=== PATIENT | male | born 1990 | race Caucasian/White ===

== ENCOUNTER 2016-11-27 02:02 | Inpatient (IN) | payer MEDICAID, OTHER ==
--- NOTE | 2016-11-27 03:13 | ED ---
General Adult HPI - General Source: patient, RN notes reviewed Mode of arrival: ambulatory Limitations: no limitations <Flakita Barker - Last Filed: 11/27/16 03:40> <Yoel Loomis - Last Filed: 11/27/16 11:03> - General Chief complaint: Psychiatric Symptoms Stated complaint: Mental Health Time Seen by Provider: 11/27/16 02:40 - History of Present Illness Initial comments: 26-year-old male presents to the emergency Department chief complaint of suicidal ideation. Patient states he had a plan to slit his throat. Patient states he is a drug addict as well as an alcoholic. Patient has been in rehab multiple times. He states that he just is over lifting. He has no rales has no help he didn't stay sober he doesn't stay clean he just does not know else to do.Patient denies any recent fever, chills, shortness of breath, chest pain, back pain, abdominal pain, nausea vomiting, numbness or tingling, dysuria or hematuria, constipation or diarrhea, headaches or visual changes, or any other current symptoms. (Flakita Barker) - Related Data Home Medications Medication Instructions Recorded Confirmed Disulfiram [Antabuse] 250 mg PO DAILY 11/27/16 11/27/16 Omeprazole 20 mg PO BID 11/27/16 11/27/16 clonazePAM [KlonoPIN] 0.25 - 0.5 mg PO DAILY 11/27/16 11/27/16 Allergies Allergy/AdvReac Type Severity Reaction Status Date / Time bee venom protein (honey bee) Allergy Unknown Verified 11/27/16 10:48 Review of Systems ROS Other: All systems not noted in ROS Statement are negative. <Flakita Barker - Last Filed: 11/27/16 03:40> ROS Other: All systems not noted in ROS Statement are negative. <Yoel Loomis - Last Filed: 11/27/16 11:03> ROS Statement: Those systems with pertinent positive or pertinent negative responses have been documented in the HPI. Past Medical History Past Medical History: No Reported History History of Any Multi-Drug Resistant Organisms: None Reported Past Surgical History: No Surgical Hx Reported Past Anesthesia/Blood Transfusion Reactions: No Reported Reaction Past Psychological History: Anxiety, Depression Smoking Status: Current every day smoker Past Alcohol Use History: Abuse Past Drug Use History: Opiates - Past Family History Father Additional Family Medical History / Comment(s): Father shot himself when he was around 41 years of age. Mother Additional Family Medical History / Comment(s): Mother was shot and killed by patient's father when she was approximately 40 years of age. Patient has one sister that is healthy. He does not have any children. <Flakita Barker - Last Filed: 11/27/16 03:40> General Exam Limitations: no limitations General appearance: alert, in no apparent distress Head exam: Present: atraumatic, normocephalic, normal inspection ENT exam: Present: normal exam, mucous membranes moist Neck exam: Present: normal inspection. Absent: tenderness, meningismus, lymphadenopathy Respiratory exam: Present: normal lung sounds bilaterally. Absent: respiratory distress, wheezes, rales, rhonchi, stridor Cardiovascular Exam: Present: regular rate, normal rhythm, normal heart sounds. Absent: systolic murmur, diastolic murmur, rubs, gallop, clicks Neurological exam: Present: alert, oriented X3 Psychiatric exam: Present: suicidal ideation. Absent: homicidal ideation Skin exam: Present: warm, dry, intact, normal color. Absent: rash <Flakita Barker - Last Filed: 11/27/16 03:40> Course <Flakita Barker - Last Filed: 11/27/16 03:40> <Yoel Loomis - Last Filed: 11/27/16 11:03> Vital Signs 11/27/16 11/27/16 02:06 06:16 Temperature 98.2 F Pulse Rate 87 98 Respiratory 20 16 Rate Blood Pressure 139/76 138/79 O2 Sat by Pulse 98 98 Oximetry - Reevaluation(s) Reevaluation #1: 11/27/16 03:40 this case will be signed out to DR. Koehler. (Flakita Barker) Medical Decision Making <Flakita Barker - Last Filed: 11/27/16 03:40> <Yoel Loomis - Last Filed: 11/27/16 11:03> - Medical Decision Making 26-year-old male presents emergency department with a chief complaint of suicidal ideation. Patient has history of alcohol abuse as well as drug abuse. (Flakita Barker) - Lab Data Lab Results 11/27/16 Range/Units 03:25 Urine Opiates Screen Not Detected (NotDetected) Ur Oxycodone Screen Not Detected (NotDetected) Urine Methadone Screen Not Detected (NotDetected) Ur Propoxyphene Screen Not Detected (NotDetected) Ur Barbiturates Screen Not Detected (NotDetected) U Tricyclic Antidepress Not Detected (NotDetected) Ur Phencyclidine Scrn Not Detected (NotDetected) Ur Amphetamines Screen Not Detected (NotDetected) U Methamphetamines Scrn Not Detected (NotDetected) U Benzodiazepines Scrn Not Detected (NotDetected) Urine Cocaine Screen Not Detected (NotDetected) U Marijuana (THC) Screen Not Detected (NotDetected) Disposition <Flakita Barker - Last Filed: 11/27/16 03:40> Time of Disposition: 11:03 <Yoel Loomis - Last Filed: 11/27/16 11:03> Clinical Impression: Suicidal ideation Disposition: ADMITTED IP TO THIS HOSP
[2016-11-27] MEDS ORDERED: LORazepam 1 MG TAB PO PRN (12:02)
[2016-11-27] MEDS ORDERED: MAGNESIUM HYDROXIDE 2,400 MG/10 ML CUP PO PRN (12:02)
[2016-11-27] MEDS ORDERED: MAG HYDROX/AL HYDROX/SIMETH 30 ML CUP PO PRN (12:02)
[2016-11-27] MEDS ORDERED: ZIPRASIDONE 20 MG VIAL IM PRN (12:02)
[2016-11-27] MEDS: PANTOPRAZOLE 40 MG TABLET PO SCH (16:33)
--- NOTE | 2016-11-27 17:48 | P.CONS ---
History of Present Illness - Reason for Consult Consult date: 11/27/16 History physical in a patient admitted to the psych floor - History of Present Illness This is a 26-year-old gentleman with history of alcohol overuse comes in to the hospital with complains of suicidal ideation. Patient was seeking help apparently is tired of drinking excessive amounts of alcohol Patient states that his last drink was over 24 hours ago was seen in the emergency room and was admitted to the hospital. Patient denies having any suicidal or homicidal ideation at this time His main complaints are jitteriness headaches and symptoms of mild hallucinations. No fevers no chest pain no difficulty breathing urinary urgency or frequency is reported at this time. Review of Systems All systems: negative (noted in hpi) Past Medical History Past Medical History: No Reported History History of Any Multi-Drug Resistant Organisms: None Reported Past Surgical History: No Surgical Hx Reported Past Anesthesia/Blood Transfusion Reactions: No Reported Reaction Past Psychological History: Anxiety, Depression Smoking Status: Current every day smoker Past Alcohol Use History: Abuse Past Drug Use History: Opiates - Past Family History Father Additional Family Medical History / Comment(s): Father shot himself when he was around 41 years of age. Mother Additional Family Medical History / Comment(s): Mother was shot and killed by patient's father when she was approximately 40 years of age. Patient has one sister that is healthy. He does not have any children. Medications and Allergies Home Medications Medication Instructions Recorded Confirmed Type Disulfiram [Antabuse] 250 mg PO DAILY 11/27/16 11/27/16 History Omeprazole 20 mg PO BID 11/27/16 11/27/16 History clonazePAM [KlonoPIN] 0.25 - 0.5 mg PO DAILY 11/27/16 11/27/16 History Allergies Allergy/AdvReac Type Severity Reaction Status Date / Time bee venom protein (honey bee) Allergy Unknown Verified 11/27/16 10:48 Physical Exam Vitals: Vital Signs Temp Pulse Pulse Resp BP BP Pulse Ox 11/27/16 13:12 97.7 F 77 16 134/77 11/27/16 06:16 98 16 138/79 98 11/27/16 02:06 98.2 F 87 20 139/76 98 Intake and Output 11/27/16 11/27/16 11/27/16 06:59 14:59 22:59 Other: Weight 85.049 kg 85.417 kg Patient Weight 11/28/16 06:59 Weight 85.417 kg JemPhysical exam Gen. appearance oriented 3 in no distress Neck is supple no JVD Lungs good air entry clear to auscultation no rhonchi or wheezing Heart S1-S2 heard regular rate and rhythm no murmurs appreciated Abdomen is soft nontender no organomegaly bowel sounds are intact Neurologically cranial nerves II-12 grossly intact no focal motor or sensory deficits noted Skin no abnormalities appreciated Assessment and Plan Plan: Major depression with suicidal ideation per of #2 acute alcohol intoxication with some symptoms of withdrawal Plan Ativan per protocol Thank you for the consultation no neurological deficits noted physical exam is normal No further recommendations from my perspective Please call with any questions or concerns if patient's symptoms get severely worse please call his back for possibility of an inpatient admission
[2016-11-27] MEDS: ACETAMINOPHEN TAB 325 MG TAB PO PRN (17:49)
--- NOTE | 2016-11-27 20:20 | HP ---
DATE OF ADMISSION 11/27/16 IDENTIFYING DATA: This is a 26-year-old single male patient. HISTORY OF PRESENT ILLNESS: Mr. Ortiz presents to the inpatient psychiatry unit at [facility] with recent depression and anxiety and concern of thoughts about suicide. The patient states he has been drinking a lot. He changed to beer and has been drinking 20 beers per day for the last couple of months. He says it has been interfering with his life and functioning. He states that he has had job losses. His family does not want to talk to him. He does admit to history of panic attacks, PTSD and being a worrier ever since he was a kid. He has felt depressed even when he is not drinking alcohol. He admits to thoughts of suicide when he came here but states that suicide is against is beliefs. He had feelings that he was done with everything but did not have any specific plan for suicide. He says he felt like he was almost bipolar recently with some ups and downs with his mood but feels like that also has been related to the alcohol. He admits to decreased sleep lately which has been a problem. Regarding PTSD, he relates history of his father killing his mom and then his father killing himself. He states that he tends to startle easily. He did not witness this incident but states that he has nightmares about his mom and dad and what happened. PSYCHIATRIC HISTORY: He has history of being on Klonopin. His primary care physician prescribes 10 at a time of the 0.5 mg strength and says that it is not enough. He says he never abused the Klonopin. He was discharged on Klonopin from his last admission here. He takes Klonopin only as he is supposed to even when he has been sober, he has taken the Klonopin for anxiety. He states that he was diagnosed with ADHD as a child. He has taken Xanax before in the past. He was admitted here in the past for depression, once. He denies any history of suicide attempts. He has been on Trazodone which gave him jumpy legs and ( ) which gave him restless legs in the past for sleep. PSYCHIATRIC FAMILY HISTORY: None specific known other than the patient does relate incident where his father killed his mom and then killed himself. He does state that his dad had drinking and drunks involved. PAST MEDICAL HISTORY: History of hemorrhoids, gastroesophageal reflux disease. Current medications: 1. Tylenol prn. 2. Maalox prn. 3. Ativan prn. 4. Milk of Magnesia prn. 5. Protonix. 6. Geodon prn. DRUG AND ALCOHOL HISTORY: The patient states that between the ages of 20 and 26 , he has been pretty much a daily drinker. He has been to rehab five times at [facility]. He has had some periods of sobriety. Longest has been six months. He wants to get sobriety back. He does not use any other substances. In the past he experimented with things such as marijuana but has been a long time without that. SOCIAL HISTORY: He relays an incident where his dad killed his mom and then killed himself. He states that his dad had drinking and drugs involved. He was [age] years old. He did not witness that incident. He was close with both of them and it was very traumatic for him. He lived with his uncle thereafter. His uncle did not have any children. His sister was 4 years older, stayed with them for a year and then sent to college. His sister currently lives in [place] and he has a one and a half year old niece. 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 He stays pretty busy. He has no current relationship. He has never been . He does not have any children. He has no history of being abused. MENTAL STATUS EXAM: He is alert, cooperative. Overall pleasant, not showing any agitation. Mood is described at terrible. His affect is restricted. He denies any thoughts of harm to self or others. He reports he feels safe here on the unit. He denies any hallucinations. He says yesterday he saw the carpet moving he thinks secondary to withdrawal and sleep deprivation. He admits to some withdrawal type symptoms. Cognitively he appears to be grossly intact. I do not see any significant disorientation or memory disturbances. Insight adequate. Judgment shows evidence of recent impairment. IMPRESSION: 1. Major depressive disorder, recurrent, severe. Rule out any component of bipolar disorder. 2. Generalized anxiety disorder, rule out panic disorder, rule out PTSD component. 3. Alcohol use disorder. PLAN/RECOMMENDATIONS: The patient will be admitted to the inpatient psychiatric unit at [facility] on a voluntary basis. He will be placed on SP 15 minute precautions. He will participate in group and activity therapies. Baseline laboratory workup will be done on the patient and medical consultation will be ordered. I will initiate Zoloft 50 mg daily to help with depression and anxiety components. We will also initiate low dose Seroquel at bedtime to help augment regarding mood and could benefit in terms of if there is any mood instability and may also help any severe anxiety type component as well as with sleep. He is on Ativan prn to prevent any alcohol withdrawal and also as needed for any agitation or severe anxiety. We will look into support symptoms. We will continue to cover this patient for Dr. Barnes through the weekend. We will monitor for any psychotropic medication side effects and monitor his response. Continue to monitor regarding any suicidal ideations. VASYLD
[2016-11-27] MEDS: LORazepam 1 MG TAB PO PRN (20:49)
[2016-11-27] MEDS: QUEtiapine 50 MG TAB PO SCH (20:50)
[2016-11-28] MEDS ORDERED: SERTRALINE 50 MG TAB PO SCH (09:00)
[2016-11-28] MEDS: PANTOPRAZOLE 40 MG TABLET PO SCH ×2 (09:02→17:21)
[2016-11-28] MEDS: LORazepam 1 MG TAB PO PRN ×3 (09:04→18:32)
[2016-11-28 09:43] LABS: Basophils # (A) 0.1 k/uL (0-0.2); Basophils % (A) 1 %; CH 31.2; CHCM 32.2; Eosinophils # (A) 0.3 k/uL (0-0.7); Eosinophils % (A) 5 %; HCT 47.6 % (39.0-53.0); HDW 1.93; HGB 15.5 gm/dL (13.0-17.5); Luc # (Auto) 0.23; Luc % (Auto) 3; Lymphocytes # (A) 0.9 k/uL (1.0-4.8); Lymphocytes % (A) 14 %; MCH 31.8 pg (25.0-35.0); MCHC 32.7 g/dL (31.0-37.0); MCV 97.2 fL (80.0-100.0); Monocytes # (A) 0.7 k/uL (0-1.0); Monocytes % (A) 10 %; Neutrophils # (A) 4.6 k/uL (1.3-7.7); Neutrophils % (A) 67 %; RDW 13.9 % (11.5-15.5); WBC 6.9 k/uL (3.8-10.6); WBC (Perox) 6.63
[2016-11-28 09:59] LABS: Alkaline Phosphatase 175 U/L (38-126); Anion Gap 10 mmol/L; Bilirubin, Delta 1.7 mg/dL (0.0-0.2); Blood Urea Nitrogen 10 mg/dL (9-20); Calcium 9.5 mg/dL (8.4-10.2); Carbon Dioxide 28 mmol/L (22-30); Chloride 105 mmol/L (98-107); Glucose 81 mg/dL (74-99); Non-African American GFR(MDRD) >60 (>60 ml/min/1.73 sqM); Potassium 4.5 mmol/L (3.5-5.1); Sodium 143 mmol/L (137-145); Total Bilirubin 4.4 mg/dL (0.2-1.3); Total Protein 7.3 g/dL (6.3-8.2)
[2016-11-28 10:29] LABS: ALT 1672 U/L (21-72); AST 1026 U/L (17-59)
[2016-11-28] MEDS: MULTIVITAMINS, THERA 1 EACH TAB PO SCH (11:57)
[2016-11-28] MEDS: ACETAMINOPHEN TAB 325 MG TAB PO PRN (15:41)
[2016-11-28] MEDS: BENZOCAINE 20% HEMORRHOIDAL OINT 28GM RECTAL PRN (17:21)
--- NOTE | 2016-11-28 17:24 | P.PN ---
Progress Note - Text Interval history: Patient is seen in cross coverage today for Dr. Barnes. He reports that he feels much better today. He slept through the night. He seems to be tolerating the Seroquel well. He does not voice any adverse side effects with the Zoloft. Labs from today revealed significantly elevated ALT and AST. He does describe risk factor for hepatitis C. He does describe that he feels like the Ativan isn't working. Mental status exam: He is alert and cooperative. His speech is fluent, not rapid or pressured. Thought processes organized. He denies any thoughts of harm to self or others. He denies any hallucinations. No evidence of active psychosis. He does not display any agitation. Plan: We'll check an ALT and AST in the a.m. We will also check an acute hepatitis panel. Will ask medical to follow-up on rounds regarding elevated LFTs. We will drop back on the dosage of Zoloft just 25 mg daily with elevated ALT and AST. We'll monitor for any medication side effects we'll maintain Seroquel as current. We'll continue to monitor his response to treatment. Dr. Barnes to initiate care this patient starting tomorrow.
[2016-11-28] MEDS: QUEtiapine 50 MG TAB PO SCH (20:46)
[2016-11-29 08:42] LABS: AST 1032 U/L (17-59)
[2016-11-29] MEDS ORDERED: SERTRALINE 25 MG TAB PO SCH (09:00)
[2016-11-29 09:01] LABS: Hepatitis B Surface Ag Index 0.06
[2016-11-29] MEDS: PANTOPRAZOLE 40 MG TABLET PO SCH ×2 (09:03→17:08)
[2016-11-29] MEDS: LORazepam 1 MG TAB PO PRN ×3 (09:04→22:11)
[2016-11-29 09:06] LABS: Hepatitis B Core IgM Index 0.03
[2016-11-29 09:14] LABS: ALT 1754 U/L (21-72)
[2016-11-29 09:18] LABS: Hepatitis C Virus IgG Ab Reactive (Negative)
--- NOTE | 2016-11-29 11:01 | P.PN ---
Progress Note - Text Interval history: The patient is found in group he follows me to an interview room. The patient was admitted over the weekend for suicidal ideation. He described having anxiety symptoms and these occur in the context of a known alcohol use disorder. The patient's liver function enzymes have been markedly elevated today's numbers are higher than yesterday. Hepatitis panel was drawn he was hepatitis C reactive. He states that he recently had unprotected sex with a female known to have hepatitis C. The patient was started on Zoloft for depressive and anxiety symptoms Seroquel at bedtime. He has been attending groups. He reports that his suicidal thoughts have resolved. 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 Mental status exam: The patient is alert he seated calmly eye contact is appropriate speech is fluent spontaneous nonpressured. He reports his mood is better. Affect is congruent to reported mood. He reports that suicidal thoughts that he presented with have resolved. He is feeling more hopeful. He is disappointed with the news of the hepatitis C being reactive but states it is something he can manage. Insight and judgment improving. He is oriented to person place and date. He endorses no auditory or visual hallucinations he endorses no specific delusions. There is no evidence of psychosis. He does not demonstrate any tangential thinking loose associations or flight of ideas. Plan: The patient will be continued on the Zoloft we will increase this to 50 mg daily Seroquel maintained at 50 mg at bedtime. Internal medicine is asked to review the case again regarding the elevation in liver function and the reactive hepatitis C results. He is encouraged to continue participating in groups. We will monitor him for safety. From a psychiatric perspective he may be appropriate for discharge in the next 1-2 days vital signs reviewed.
[2016-11-29] MEDS: MULTIVITAMINS, THERA 1 EACH TAB PO SCH (12:00)
[2016-11-29] MEDS: BENZOCAINE 20% HEMORRHOIDAL OINT 28GM RECTAL PRN (12:01)
[2016-11-29] MEDS: ACETAMINOPHEN TAB 325 MG TAB PO PRN (17:08)
[2016-11-29] MEDS: QUEtiapine 50 MG TAB PO SCH (21:11)
[2016-11-30 06:45] VITALS: BP 120/65; PULSE 63; RESP 12; TEMP 97.4
[2016-11-30] MEDS: PANTOPRAZOLE 40 MG TABLET PO SCH (08:38)
[2016-11-30] MEDS: MULTIVITAMINS, THERA 1 EACH TAB PO SCH (08:38)
[2016-11-30] MEDS: LORazepam 1 MG TAB PO PRN (08:39)
[2016-11-30] MEDS ORDERED: SERTRALINE 50 MG TAB PO SCH (09:00)
--- NOTE | 2016-11-30 09:27 | P.DS ---
Providers Date of admission: 11/27/16 11:01 Expected date of discharge: 11/30/16 Attending physician: Elieser Barnes Consults: 11/27/16 12:02 Consult Physician Routine Consulting Provider: Timothy Stanley Consult Reason/Comments: H & P and medical care Do you want consulting provider notified?: Yes 11/29/16 13:34 Consult Physician Routine Consulting Provider: Timothy Stanley Consult Reason/Comments: New Dx Hep C Do you want consulting provider notified?: Yes Primary care physician: Katherine Manzanares Charbal - Discharge Diagnosis(es) (1) Major depressive disorder, recurrent Current Visit: Yes Status: Acute Priority: High (2) Anxiety Current Visit: Yes Status: Acute Priority: High (3) Alcohol use disorder Current Visit: Yes Status: Acute Priority: High Hospital Course: Brief summary of admission note: The patient is a 26-year-old single male who was admitted to the mental health unit with acute symptoms of depression and anxiety and thoughts of suicide. This has been happening in the context of him overusing alcohol. He described feeling isolated having no reliable source of income and experiencing with anxiety in the form of panic attacks. There is a history of PTSD as the patient's father killed his mother and then killed himself when the patient was 11 years old. For full details please refer to Dr. Dodson is psychiatric evaluation dated 11/27/2016. Summary of hospital course: The patient was admitted to the mental health unit voluntarily. He was initially evaluated by Dr. Dodson. The psychiatric evaluation and subsequent progress notes were reviewed. I assumed care of the patient beginning yesterday. The patient states that he is doing much better his mood is improved he is not feeling suicidal. He feels detoxing from alcohol was a significant part of his mood improving. He had been started on Zoloft and Seroquel we discussed those medications they're intended purposes and possible side effects. The patient was seen by internal medicine. The patient's LFTs have been significantly elevated and a hepatitis panel was drawn which showed hepatitis C was reactive. We are awaiting further input from internal medicine. The patient has been attending groups he has demonstrated no agitated behavior. He feels that this most recent mood crisis has resolved. He does not wish to participate in inpatient chemical dependency treatment but states he will go to an AA meeting a day. Spontaneously he reports plans of following up with a primary care physician regarding his hepatitis status. He is willing to follow up with outpatient mental health services for his mood and anxiety symptoms as well as substance use. Mental status exam: The patient is a male appearing his stated age he is dressed in hospital attire. Eye contact is appropriate speech is fluent spontaneous nonpressured. He reports his mood is better. He reports that he does not feel hopeless he is endorsing no acute suicidal or homicidal ideation intent or plan. He is endorsing no auditory or visual hallucinations he is endorsing no specific delusions. Thought process is linear he demonstrates no tangential thinking loose associations or flight of ideas. He does not present hypomanic or manic. Affect appears euthymic he is able to demonstrate an appropriate range of affect including smiling. He demonstrates no abnormal involuntary movements. He demonstrates no verbal or physical aggressiveness. He remains cognitively grossly intact and he is oriented to person place and date. Impressions 1. Major depressive disorder recurrent severe without psychosis, anxiety unspecified rule out panic disorder, history of PTSD, alcohol use disorder 2. Elevated liver function enzymes, recent diagnosis of hepatitis C 3. Limited support financial constraint Plan: The patient will be discharged mental health unit today to return to his own residence where he rents a room. Social work will arrange outpatient mental health follow-up where they can address his mood anxiety and substance use issues. The patient does not wish to attend inpatient chemical dependency treatment. He will continue on Zoloft 50 mg daily which will need to be titrated further and Seroquel 50 mg at bedtime. There is no imminent safety risk he is appropriate for transition outpatient care. We will await recommendations from internal medicine prior to discharging him from the mental health unit area and the patient will need to follow-up with his primary care physician soon after discharge. We discussed the importance of him abstaining from any use of alcohol marijuana or any other illicit drug. He is instructed to return to the hospital with any acute safety concerns. Patient Condition at Discharge: Stable Plan - Discharge Summary New Discharge Prescriptions: New Multivitamins, Thera [Multivitamin (formulary)] 1 each PO DAILY@1200 tab QUEtiapine [SEROquel] 50 mg PO HS #30 tab Sertraline [Zoloft] 50 mg PO DAILY #30 tab Continue Omeprazole 20 mg PO BID Discontinued clonazePAM [KlonoPIN] 0.25 - 0.5 mg PO DAILY Disulfiram [Antabuse] 250 mg PO DAILY Discharge Medication List Omeprazole 20 mg PO BID 11/27/16 [History] Multivitamins, Thera [Multivitamin (formulary)] 1 each PO DAILY@1200 tab [Rx] QUEtiapine [SEROquel] 50 mg PO HS #30 tab 11/30/16 [Rx] Sertraline [Zoloft] 50 mg PO DAILY #30 tab 11/30/16 [Rx] Follow up Appointment(s)/Referral(s): Ayesha Murphy MD [Primary Care Provider] - 1-2 days
--- NOTE | 2016-11-30 12:02 | P.PN ---
Subjective Patient can follow up with GI. Transaminitis is likely secondary to alcoholic hepatitis There is not necessarily an acute phase of hepatitis C patient can follow up with GI for potential treatment with the newer medications. Objective - Vital Signs Vital signs: Vital Signs Temp 97.4 F L 11/30/16 06:44 Pulse 63 11/30/16 06:44 Resp 12 11/30/16 06:44 BP 120/65 11/30/16 06:44 Pulse Ox 98 11/27/16 06:16 - Labs CBC & Chem 7: 11/28/16 09:19 11/28/16 09:19
== END 2016-11-30 11:05 | disposition home or self-care (01) | DRG 885 ==
LOC: EC 02:02 → 3MHU 11:01
PROVIDERS: ADMIT Psychiatry & Neurology Psychiatry; ATTEND Psychiatry & Neurology Psychiatry
DX: F33.2 Major depressive disorder, recurrent severe without psychotic features (principal); R45.851 Suicidal ideations; F19.20 Other psychoactive substance dependence, uncomplicated; F10.239 Alcohol dependence with withdrawal, unspecified; K70.10 Alcoholic hepatitis without ascites; B19.20 Unspecified viral hepatitis C without hepatic coma; F17.200 Nicotine dependence, unspecified, uncomplicated; F41.0 Panic disorder [episodic paroxysmal anxiety]; F41.1 Generalized anxiety disorder; F43.10 Post-traumatic stress disorder, unspecified; F90.9 Attention-deficit hyperactivity disorder, unspecified type; K21.9 Gastro-esophageal reflux disease without esophagitis; K64.9 Unspecified hemorrhoids; F10.229 Alcohol dependence with intoxication, unspecified; Z79.899 Other long term (current) drug therapy
CPT/HCPCS: 80053; 80074; 80306; 82075; 82248; 84443; 84450; 84460; 85025; 99284

== ENCOUNTER 2016-12-17 20:52 | Emergency (ER) | payer OTHER ==
[2016-12-17 21:02] VITALS: BP 135/83; PULSE 88; RESP 20; TEMP 98
--- NOTE | 2016-12-17 21:28 | ED ---
Wound/Laceration HPI - General Chief Complaint: Wound/Laceration Stated Complaint: laceration left arm Time Seen by Provider: 12/17/16 21:02 Source: patient, RN notes reviewed, old records reviewed Mode of arrival: ambulatory Limitations: no limitations - History of Present Illness Initial Comments: 26 year old male with left upper arm laceration, apparently patient cut it accidentally on a knife. Patient reports he was intoxicated, and could not come to ER last night. Patient states that it has continued to bleed. Reports that his tetanus is up to date, denies any fever, chills, decreased range of motion of arm, or peripheral paresthesias. - Related Data Home Medications Medication Instructions Recorded Confirmed Omeprazole 20 mg PO BID 11/27/16 11/27/16 Previous Rx's Medication Instructions Recorded Multivitamins, Thera [Multivitamin 1 each PO DAILY@1200 tab 11/30/16 (formulary)] QUEtiapine [SEROquel] 50 mg PO HS #30 tab 11/30/16 Sertraline [Zoloft] 50 mg PO DAILY #30 tab 11/30/16 Allergies Allergy/AdvReac Type Severity Reaction Status Date / Time bee venom protein (honey bee) Allergy Unknown Verified 12/17/16 21:02 Review of Systems ROS Statement: Those systems with pertinent positive or pertinent negative responses have been documented in the HPI. ROS Other: All systems not noted in ROS Statement are negative. Past Medical History Past Medical History: No Reported History History of Any Multi-Drug Resistant Organisms: None Reported Past Surgical History: No Surgical Hx Reported Past Anesthesia/Blood Transfusion Reactions: No Reported Reaction Past Psychological History: Anxiety, Depression Smoking Status: Current every day smoker Past Alcohol Use History: Abuse, Daily Past Drug Use History: Marijuana, Opiates - Past Family History Father Additional Family Medical History / Comment(s): Father shot himself when he was around 41 years of age. Mother Additional Family Medical History / Comment(s): Mother was shot and killed by patient's father when she was approximately 40 years of age. Patient has one sister that is healthy. He does not have any children. General Exam - General Exam Comments Initial Comments: Well appearing 26 year old male, no distress. Limitations: no limitations General appearance: alert, in no apparent distress Head exam: Present: atraumatic, normocephalic, normal inspection Eye exam: Present: normal appearance, PERRL, EOMI. Absent: scleral icterus, conjunctival injection, periorbital swelling ENT exam: Present: normal exam, mucous membranes moist Neck exam: Present: normal inspection. Absent: tenderness, meningismus, lymphadenopathy Respiratory exam: Present: normal lung sounds bilaterally. Absent: respiratory distress, wheezes, rales, rhonchi, stridor Cardiovascular Exam: Present: regular rate GI/Abdominal exam: Present: soft, normal bowel sounds. Absent: distended, tenderness, guarding, rebound, rigid Extremities exam: Present: normal inspection, full ROM, normal capillary refill , other (5cm laceration over left upper arm, wound continues to bleed and is deep. ). Absent: tenderness, pedal edema, joint swelling, calf tenderness Back exam: Present: normal inspection Neurological exam: Present: alert, oriented X3, CN II-XII intact Course Vital Signs 12/17/16 21:00 Temperature 98.0 F Pulse Rate 88 Respiratory 20 Rate Blood Pressure 135/83 O2 Sat by Pulse 99 Oximetry Procedures - Laceration Laceration #1 Indication: laceration Site: upper extremity (left arm) Size (cm): 5 Description: linear Depth: simple, single layer Anesthetic Used: lidocaine 1% Anesthesia Technique: local infiltration Amount (mls): 10 Pre-repair: wound explored, irrigated extensively Type of Sutures: nylon Size of Sutures: 5-0 Number of Sutures: 7 Technique: simple, interrupted Patient Tolerated Procedure: well, no complications Medical Decision Making - Medical Decision Making 26 year old male with left upper arm laceration, apparently patient cut it accidentally on a knife. Patient reports he was intoxicated, and could not come to ER last night. Patient states that it has continued to bleed. Laceration measuries 5cm, and was throughly irrigated. Patient wound well approximated with 7 sutures. Discussed return for removal in 10 days. Patient has full rnage of motion of arm, elbow, and is neurovascularly intact. Discussed monitor for infection, return parameters discused. Disposition Clinical Impression: Laceration of left upper arm Disposition: HOME SELF-CARE Condition: Good Instructions: Laceration (ED) Additional Instructions: Please return to the emergency room in 8-10 days to have sutures removed. Please leave wound covered for the first 24-48 hours and then leave open to air after that time. Please use clean soap and water to clean the suture area to prevent scabbing over the top of your sutures. Please watch for any signs of infection which may include but not limited to increased pain, swelling, redness , fever or chills. Please return to the emergency room if any signs of infection do occur. Please return to the emergency room for any other concerns or complications. Referrals: Ayesha Murphy MD [Primary Care Provider] - 1-2 days Time of Disposition: 21:28
--- NOTE | 2016-12-20 08:12 | CDI ---
Dear Saira Mccann PA-C: Please do addendum History of present illness, Physical examination, and procedure of the laceration. Thank you, Carlos Finley, Incident Response Analyst. If you have any questions, please contact [facility] at [phone]. [facility]
== END 2016-12-17 21:34 | disposition home or self-care (01) ==
LOC: EC 20:52
DX: S41.112A Laceration without foreign body of left upper arm, initial encounter (principal); F17.200 Nicotine dependence, unspecified, uncomplicated; Z79.899 Other long term (current) drug therapy; Z91.030 Bee allergy status; W26.0XXA Contact with knife, initial encounter
CPT/HCPCS: 12002; 99283

== ENCOUNTER 2017-01-26 15:07 | Emergency (ER) | payer OTHER ==
[2017-01-26 15:19] VITALS: RESP 16
--- NOTE | 2017-01-26 16:26 | ED ---
General Adult HPI - General Chief complaint: Recheck/Abnormal Lab/Rx Stated complaint: [facility]. Rib Pain follow up Time Seen by Provider: 01/26/17 15:48 Source: patient, RN notes reviewed Mode of arrival: ambulatory Limitations: no limitations - History of Present Illness Initial comments: This is a 26-year-old male who presents to the emergency department with request for pain management. Patient presented here 2 days ago and was diagnosed with a 12th rib fracture. He was discharged home with ibuprofen. 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 Patient has taken his ibuprofen but would like a stronger pain medication. Denies fever, chills, chest pain, abdominal pain, nausea or vomiting, constipation or diarrhea, dysuria or hematuria, numbness or tingling, headache or vision changes. - Related Data Home Medications Medication Instructions Recorded Confirmed Omeprazole 20 mg PO BID 11/27/16 01/25/17 Previous Rx's Medication Instructions Recorded Multivitamins, Thera [Multivitamin 1 each PO DAILY@1200 tab 11/30/16 (formulary)] QUEtiapine [SEROquel] 50 mg PO HS #30 tab 11/30/16 Sertraline [Zoloft] 50 mg PO DAILY #30 tab 11/30/16 Ibuprofen [Motrin] 600 mg PO Q6HR PRN #30 tab 01/25/17 Acetaminophen-Codeine 300-30mg 1 tab PO Q4H PRN #20 tablet 01/26/17 [Tylenol #3] Allergies Allergy/AdvReac Type Severity Reaction Status Date / Time bee venom protein (honey bee) Allergy Unknown Verified 01/26/17 15:19 Review of Systems ROS Statement: Those systems with pertinent positive or pertinent negative responses have been documented in the HPI. ROS Other: All systems not noted in ROS Statement are negative. Past Medical History Past Medical History: No Reported History History of Any Multi-Drug Resistant Organisms: None Reported Past Surgical History: No Surgical Hx Reported Past Anesthesia/Blood Transfusion Reactions: No Reported Reaction Past Psychological History: Anxiety, Depression Smoking Status: Current every day smoker Past Alcohol Use History: Abuse, Daily Past Drug Use History: Marijuana, Opiates - Past Family History Father Additional Family Medical History / Comment(s): Father shot himself when he was around 41 years of age. Mother Additional Family Medical History / Comment(s): Mother was shot and killed by patient's father when she was approximately 40 years of age. Patient has one sister that is healthy. He does not have any children. General Exam - General Exam Comments Initial Comments: General: Awake and alert, well-developed; in no apparent distress. HEENT: Head atraumatic, normocephalic. Pupils are equal, round and reactive to light. Extraocular movements intact. Oropharynx moist without erythema or exudate. Neck: Supple. Normal ROM. Cardiovascular: Regular rate and rhythm. No murmurs, rubs or gallops. Chest symmetrical. Respiratory: Lungs clear to auscultation bilaterally. No wheezes, rales or rhonchi. Normal respiratory effort with no use of accessory muscles. Visible discomfort with deep breathing. Skin: [place], warm and dry without rashes or lesions. Neurological: Alert and oriented x3. CN II-XII grossly intact. Speech is fluent and answers are appropriate. No focal neuro deficits. Psychiatric: Normal mood and affect. No overt signs of depression or anxiety noted. Limitations: no limitations Course Vital Signs 01/26/17 15:15 Temperature 98.0 F Pulse Rate 87 Respiratory 16 Rate Blood Pressure 147/84 O2 Sat by Pulse 100 Oximetry Medical Decision Making - Medical Decision Making This is a 26-year-old male who presents to the emergency department with request for pain medication. He was diagnosed with a 12th rib fracture 2 days ago. X-ray of chest today revealed no acute abnormalities. No pneumothorax or displaced rib fractures seen. He'll be discharged home with Tylenol with Codeine. He is to follow-up with his primary care provider in 1-2 days. Patient voices understanding and is in agreement to the plan. All questions were answered. - Radiology Data Radiology results: report reviewed X-ray chest findings: The heart size is normal. The pulmonary vasculature is normal. Lungs are clear. No pneumothorax is evident. No displaced rib fractures are identified. Disposition Clinical Impression: Encounter for medication refill, Rib fracture Disposition: HOME SELF-CARE Condition: Good Instructions: Acetaminophen/Codeine (By mouth) Additional Instructions: Please take medications as prescribed. Please follow up with primary care provider within 1-2 days. Return to emergency department if symptoms should worsen or any concerns arise. Prescriptions: Acetaminophen-Codeine 300-30mg [Tylenol #3] 1 tab PO Q4H PRN #20 tablet PRN Reason: Pain Referrals: Ayesha Murphy MD [Primary Care Provider] - 1-2 days Time of Disposition: 16:33
--- NOTE | 2017-01-26 16:29 | XR ---
EXAMINATION TYPE: XR chest 1V DATE OF EXAM: 01/26/2017 COMPARISON: NONE INDICATION: Pain TECHNIQUE: Single frontal view of the chest is obtained. FINDINGS: The heart size is normal. The pulmonary vasculature is normal. The lungs are clear. No pneumothorax is evident. No displaced rib fractures are identified. IMPRESSION: 1. No acute pulmonary process.
[2017-01-26 16:39] VITALS: BP 111/83; PULSE 77; TEMP 97.1
== END 2017-01-26 16:39 | disposition home or self-care (01) ==
LOC: EC 15:07
DX: S22.39XD Fracture of one rib, unspecified side, subsequent encounter for fracture with routine healing (principal); Z76.0 Encounter for issue of repeat prescription; F17.200 Nicotine dependence, unspecified, uncomplicated; Z79.899 Other long term (current) drug therapy; Z91.030 Bee allergy status; X58.XXXD Exposure to other specified factors, subsequent encounter
CPT/HCPCS: 71010; 99283

== ENCOUNTER → 2017-04-18 | Outpatient (CLI) | payer OTHER ==
--- NOTE | 2017-04-18 10:12 | US ---
EXAMINATION TYPE: US abdomen complete DATE OF EXAM: 04/18/2017 COMPARISON: NONE CLINICAL HISTORY: B18.2 Chronic viral hepatitis C/R74.8 Abnormal Liver Enzymes. EXAM MEASUREMENTS: Liver Length: 13.9 cm Gallbladder Wall: 0.4 cm CBD: 0.3 cm Spleen: 12.5 cm Right Kidney: 10.8 x 3.9 x 6.1 cm Left Kidney: 11.9 x 6.6 x 6.3 cm Pancreas: Obscured by bowel gas Liver: no masses identified. Hepatic echotexture is homogeneous. Gallbladder: wall slightly thickened Evidence for sonographic Rosa's sign: no CBD: wnl Spleen: wnl Right Kidney: wnl Left Kidney: probable dromedary hump Upper IVC: wnl Abd Aorta: wnl The liver is homogenous. The intrahepatic portion of the IVC and proximal abdominal aorta are within normal limits. There is no evidence of cholelithiasis. Common bile duct is unremarkable. The visu alized portions of the pancreas are homogenous. The spleen is unremarkable. Kidneys are symmetric a nd free of hydronephrosis. IMPRESSION: 1. Homogeneous hepatic echotexture with no sonographic hepatic masses on today's examination. 2. Mild gallbladder wall thickening, likely reactive to the adjacent hepatocellular disease. No jannie lithiasis or other findings of acute cholecystitis. 3. Prominent size of the spleen although this does not meet criteria for splenomegaly.
== END | disposition home or self-care (01) ==
LOC: RADUSWWP 09:11
PROVIDERS: ATTEND Family Medicine
DX: K82.8 Other specified diseases of gallbladder (principal); F10.10 Alcohol abuse, uncomplicated; Z86.19 Personal history of other infectious and parasitic diseases
CPT/HCPCS: 76700

== ENCOUNTER → 2017-12-15 | Emergency (ER) | payer OTHER ==
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
== END | disposition home or self-care (01) ==
LOC: EC 16:21
DX: F10.129 Alcohol abuse with intoxication, unspecified (principal); Z02.89 Encounter for other administrative examinations; F17.200 Nicotine dependence, unspecified, uncomplicated; Z79.899 Other long term (current) drug therapy; Z91.018 Allergy to other foods
CPT/HCPCS: 82075; 99283

== ENCOUNTER 2017-12-23 17:16 | Emergency (ER) | payer OTHER ==
[2017-12-23 17:26] VITALS: BP 132/84; PULSE 86; RESP 18; TEMP 97.2
--- NOTE | 2017-12-23 18:09 | ED ---
General Adult HPI - General Chief complaint: Head Injury Stated complaint: Head Injury Time Seen by Provider: 12/23/17 17:34 Source: patient Mode of arrival: ambulatory Limitations: no limitations - History of Present Illness Initial comments: 27-year-old male with past medical history of hepatitis C presents today for chief complaint of right sided head abrasion and headache. 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 When a branch about 5 inches 5 inches hit him in the head that he had just cut. He is unsure of the exact height that it felt from. Patient cannot lose consciousness, denies neck pain, confusion, speech changes, ataxia. Patient denies any visual changes since. Patient states that he had a headache 5/10 dull aching began gradually following incident, this has not changed in characteristic since the incident. Patient has taken ibuprofen for pain management prior to arrival. - Related Data Home Medications Medication Instructions Recorded Confirmed No Known Home Medications 12/23/17 12/23/17 Allergies Allergy/AdvReac Type Severity Reaction Status Date / Time bee venom protein (honey bee) Allergy Unknown Verified 12/23/17 18:05 Review of Systems ROS Statement: Those systems with pertinent positive or pertinent negative responses have been documented in the HPI. ROS Other: All systems not noted in ROS Statement are negative. Constitutional: Denies: fever, chills Eyes: Denies: vision change ENT: Denies: hearing loss, epistaxis Respiratory: Denies: cough, dyspnea, wheezes, hemoptysis, stridor Cardiovascular: Denies: chest pain, dyspnea on exertion Gastrointestinal: Denies: abdominal pain, nausea, vomiting, diarrhea, constipation Genitourinary: Denies: urgency, dysuria Skin: Reports: lesions. Denies: rash Neurological: Reports: headache. Denies: weakness, numbness, paresthesias, confusion, abnormal gait, vertigo Past Medical History Past Medical History: No Reported History History of Any Multi-Drug Resistant Organisms: None Reported Past Surgical History: No Surgical Hx Reported Past Anesthesia/Blood Transfusion Reactions: No Reported Reaction Past Psychological History: Anxiety, Depression Smoking Status: Current every day smoker Past Alcohol Use History: Abuse, Daily Past Drug Use History: Marijuana, Opiates - Past Family History Father Additional Family Medical History / Comment(s): Father shot himself when he was around 40 years of age. Mother Additional Family Medical History / Comment(s): Mother was shot and killed by patient's father when she was approximately 40 years of age. Patient has one sister that is healthy. He does not have any children. General Exam - General Exam Comments Initial Comments: General: The patient is awake and alert, in no distress, and does not appear acutely ill. No wang or raccoon signs. Eye: Pupils are equal +3mm, round and reactive to light, extra-ocular movements are intact. No nystagmus. There is normal conjunctiva bilaterally. No signs of icterus. Ears, nose, mouth and throat: There are moist mucous membranes and no oral lesions. No rhinorrhea. No blood in external auditory canal b/l. Neck: The neck is supple, there is no tenderness or JVD. Cardiovascular: There is a regular rate and rhythm. No murmur, rub or gallop is appreciated. Respiratory: Lungs are clear to auscultation, respirations are non-labored, breath sounds are equal. No wheezes, stridor, rales, or rhonchi. Musculoskeletal: Normal ROM, no tenderness. Strength 5/5. Sensation intact. Pulses equal bilaterally 2+. Neurological: A&O x 3. CN II-XII intact,memory intact to immediately, intermediate and alf recall. Able to follow simple verbal. Able to name a common object (pen). High quality, labial (pa) and lingual (la) speech. Low quality posterior pharynx/larynx (ga) voice sounds. Able to express general knowledge (days in a week). No hemineglect or inattention noted. Finger agnosia (-) and spatially oriented (identified L index finger touched R shoulder with L index finger).. Light touch sensation present over the face, chest, abdomen, back, UE bilaterally, and LE bilaterally. Able to localize point during point localization b/l and extinction. No visible bulk atrophy, hypertrophy, fasciculations, or myoclonus of the UE or LE b/l. Full PROM in UE and LE b/l. Bilateral muscle strength 5/5 for the following muscles: deltoid, biceps, triceps, brachioradialis, wrist extensors/flexor, hip flexor, hip abductors/adductors, hamstrings, quadriceps, feet dorsiflexors/plantar flexors. Finger to nose, finger to the examiners finger, and heel to rothman coordinated and accurate b/l. Coordinated and even demonstration of hand flip, finger to thumb, and toe tap b/l. (-) Babinski. +2 brachioradialis, triceps, patellar, and Achilles DTR b/l. Gait is coordinated and even in stride with tandem, toe and heel walk. Maintains balance with monopedal stance. (-) Romberg. (-) pronator drift. No nuchal rigidity. (-) Brudzinskis and Kernig signs. Skin: Skin is warm and dry and no rashes or lesions are noted. Psychiatric: Cooperative, appropriate mood & affect, normal judgment. Limitations: no limitations Course Vital Signs 12/23/17 17:24 Temperature 97.2 F L Pulse Rate 86 Respiratory 18 Rate Blood Pressure 132/84 O2 Sat by Pulse 99 Oximetry Medical Decision Making - Medical Decision Making CT discussed at length with pt. Pt deferred CT at this time after discussing risks of radiation with CT. Dr. Garcia recommended CT. I discussed with pt that the physician insists on a CT, however pt stated that he did no want it. I gave pt 10-[address] He still deferred at this time. He stated he would rather watch and wait and return for any change in symptoms. Pt is with girlfriend who states she will monitor him. Pt denies nausea, vomiting, change in headache. No focal neurological deficits on thorough neurological examination. Case discussed with Dr. Garcia. We feel pt is stable for d/c with concussion protocols and PCP f/u in 1-2 days. Pt agreed stating he is ready for d/c. Concussion protocols discussed, pt given work note for next 2 days until PCP clearance. VS acceptable upon d/c. Disposition Clinical Impression: Head injury Disposition: HOME SELF-CARE Condition: Good Instructions: Concussion (ED) Additional Instructions: Please use medication as discussed. Please follow-up with family doctor in the next 2 days. No contact sports until primary care clearance. Persistent headache , vomiting any any worsening symptoms please return to the ER, or for any other concerns. Is patient prescribed a controlled substance at d/c from ED?: No Referrals: Ayesha Murphy MD [REFERRING] - 1-2 days Time of Disposition: 18:09
== END 2017-12-23 18:16 | disposition home or self-care (01) ==
LOC: EC 17:16
DX: S09.90XA Unspecified injury of head, initial encounter (principal); F17.200 Nicotine dependence, unspecified, uncomplicated; Z91.030 Bee allergy status; Z53.29 Procedure and treatment not carried out because of patient's decision for other reasons; W22.8XXA Striking against or struck by other objects, initial encounter; Y92.89 Other specified places as the place of occurrence of the external cause
CPT/HCPCS: 99283

== ENCOUNTER 2018-02-01 23:29 | Emergency (ER) | payer OTHER ==
[2018-02-02 01:34] LABS: Amphetamine Screen,Urine Not Detected (NotDetected); Barbiturate Screen,Urine Not Detected (NotDetected); Benzodiazepines Screen,Urine Not Detected (NotDetected); Cocaine Screen,Urine Not Detected (NotDetected); Methadone Screen, Urine Not Detected (NotDetected); Opiate Screen,Urine Not Detected (NotDetected); Oxycodone Screen, Urine Not Detected (NotDetected); Phencyclidine Screen,Urine Not Detected (NotDetected); Tricyclic Antidepressant,Urine Not Detected (NotDetected); Urn Cannabinoid Scrn Not Detected (NotDetected)
--- NOTE | 2018-02-02 02:00 | CT ---
EXAMINATION TYPE: CT brain lidia wo con DATE OF EXAM: 02/02/2018 COMPARISON: 03/24/2017 HISTORY: Fall;evaluate for trauma CT DLP: 972.5 mGycm Automated exposure control for dose reduction was used. TECHNIQUE: CT scan of the head and cervical spine are performed without contrast. FINDINGS: Ventricles and sulci appear normal. There is no mass effect nor midline shift. There is n o sign of intracranial hemorrhage. The calvarium is intact. Cervical vertebra have normal spacing and alignment. Posterior elements are intact. Facet joints appe ar normal. The skull base appears intact. IMPRESSION: Negative CT scan of the brain. Negative CT scan cervical spine. No significant change.
--- NOTE | 2018-02-02 04:10 | ED ---
General Adult HPI - General Source: patient, RN notes reviewed Mode of arrival: ambulatory Limitations: no limitations <Jayro Davis - Last Filed: 02/02/18 05:01> <Yovani Cota - Last Filed: 02/02/18 11:41> - General Chief complaint: Head Injury Stated complaint: MENTAL HEALTH,HEAD INJURY Time Seen by Provider: 02/02/18 00:33 - History of Present Illness Initial comments: 27-year-old male presents to the emergency department for multiple complaints. Patient states that he was at work standing on a dock when he fell into the water and hit his head. Patient denies loss of consciousness. Patient denies being on blood thinners. Patient states he felt like his eyes rolled back in his head. He denies headache at this time. He does admit to drinking alcohol tonight. Patient also complains of hearing voices. He states he has history of anxiety and depression. Patient states he is currently taking medication for anxiety. He states he has never heard voices before. He denies any history of bipolar disorder or schizophrenia. He states the voices were telling him to harm himself. He states he knew not to listen to them and denies any thoughts of suicide. Patient denies the voices telling him to hurt anyone else and denies any thoughts of hurting anyone else. However, according to Ben MONTGOMERY his girlfriend stated that the patient had stated the voices were telling him to harm her and their child so she became concerned and petitioned him. Patient has no other complaints at this time including shortness of breath, chest pain, abdominal pain, nausea or vomiting, headache, or visual changes. (Jayro Davis) - Related Data Home Medications Medication Instructions Recorded Confirmed clonazePAM [KlonoPIN] 0.25 - 0.5 mg PO DAILY 02/01/18 02/02/18 Nystatin 1 applic TOPICAL BID 02/02/18 02/02/18 Ranitidine HCl [Zantac] 150 mg PO BID 02/02/18 02/02/18 Vivitrol 380 Mg 380 mg SQ Q30D 02/02/18 02/02/18 buPROPion HCL [Wellbutrin XL] 150 mg PO DAILY 02/02/18 02/02/18 hydrOXYzine PAMOATE [Vistaril] 25 mg PO DAILY PRN 02/02/18 02/02/18 Allergies Allergy/AdvReac Type Severity Reaction Status Date / Time bee venom protein (honey bee) Allergy Unknown Verified 12/23/17 18:05 Review of Systems ROS Other: All systems not noted in ROS Statement are negative. <Jayro Davis - Last Filed: 02/02/18 05:01> ROS Other: All systems not noted in ROS Statement are negative. <Yovani Cota - Last Filed: 02/02/18 11:41> ROS Statement: Those systems with pertinent positive or pertinent negative responses have been documented in the HPI. Past Medical History Past Medical History: No Reported History History of Any Multi-Drug Resistant Organisms: None Reported Past Surgical History: No Surgical Hx Reported Past Anesthesia/Blood Transfusion Reactions: No Reported Reaction Past Psychological History: Anxiety, Depression Smoking Status: Current every day smoker Past Alcohol Use History: Abuse, Daily Past Drug Use History: Marijuana, Opiates - Past Family History Father Additional Family Medical History / Comment(s): Father shot himself when he was around 41 years of age. Mother Additional Family Medical History / Comment(s): Mother was shot and killed by patient's father when she was approximately 40 years of age. Patient has one sister that is healthy. He does not have any children. <Jayro Davis P - Last Filed: 02/02/18 05:01> General Exam Limitations: no limitations General appearance: alert, in no apparent distress Head exam: Present: atraumatic, normocephalic, normal inspection Eye exam: Present: normal appearance, PERRL, EOMI, nystagmus (Fatigable horizontal nystagmus). Absent: scleral icterus, conjunctival injection, periorbital swelling ENT exam: Present: normal exam, normal oropharynx, mucous membranes moist, normal external ear exam Neck exam: Present: normal inspection, full ROM. Absent: tenderness, meningismus, lymphadenopathy Respiratory exam: Present: normal lung sounds bilaterally. Absent: respiratory distress, wheezes, rales, rhonchi, stridor Cardiovascular Exam: Present: regular rate, normal rhythm, normal heart sounds. Absent: systolic murmur, diastolic murmur, rubs, gallop, clicks Back exam: Absent: vertebral tenderness Neurological exam: Present: alert, oriented X3, CN II-XII intact, normal gait Expanded Patient oriented to: Present: person, place, time Speech: Present: fluid speech Cranial nerves: EOM's Intact: Normal, Facial Sensation: Normal Cerebellar function: Finger to Nose: Normal Eye Response: (4) open spontaneously Motor Response: (6) obeys commands Verbal Response: (5) oriented [place] Total: 15 Psychiatric exam: Present: normal affect, normal mood <Jayro Davis - Last Filed: 02/02/18 05:01> Vital Signs 02/01/18 02/02/18 23:44 07:52 Temperature 98.1 F 96.8 F L Pulse Rate 87 102 H Respiratory 20 18 Rate Blood Pressure 119/80 108/58 O2 Sat by Pulse 96 98 Oximetry EKG Findings - EKG Comments: EKG Findings:: Normal sinus rhythm, ventricular rate 95, NM interval 178, QRS duration 92 <Jayro Davis - Last Filed: 02/02/18 05:01> Medical Decision Making <Jayro Davis - Last Filed: 02/02/18 05:01> <Yovani Cota - Last Filed: 02/02/18 11:41> - Medical Decision Making 27-year-old male presents to the emergency department for multiple complaints. Patient states that he fell and hit his head earlier today. No focal neuro deficits. GCS 15. Patient denies loss of consciousness but states he felt like his eyes were rolling back in his head. Patient is currently intoxicated. CT brain/cspine was ordered and was negative. Patient is also admitting to hearing voices. He states the voices were telling him to hurt himself but he does not currently have any thoughts of suicide and states he was not listening to voices. He denies the voices telling him to hurt anyone else. However his girlfriend apparently stated that the voices were telling him to hurt herself as well as their infant child. On exam patient is oriented and nonconfrontational. He is answering questions without difficulty. The patient was sober EPS was consulted. (Jayro Davis) Patient was seen by mental health services who recommends discharge. Patient reevaluated and denies suicidal ideation. Patient does contract for safety. ( Yovani Cota) - Lab Data Lab Results 02/02/18 Range/Units 01:00 Urine Opiates Screen Not Detected (NotDetected) Ur Oxycodone Screen Not Detected (NotDetected) Urine Methadone Screen Not Detected (NotDetected) Ur Propoxyphene Screen Not Detected (NotDetected) Ur Barbiturates Screen Not Detected (NotDetected) U Tricyclic Antidepress Not Detected (NotDetected) Ur Phencyclidine Scrn Not Detected (NotDetected) Ur Amphetamines Screen Not Detected (NotDetected) U Methamphetamines Scrn Not Detected (NotDetected) U Benzodiazepines Scrn Not Detected (NotDetected) Urine Cocaine Screen Not Detected (NotDetected) U Marijuana (THC) Screen Not Detected (NotDetected) Disposition <Jayro Davis - Last Filed: 02/02/18 05:01> Is patient prescribed a controlled substance at d/c from ED?: No Time of Disposition: 11:41 <Yovani Cota - Last Filed: 02/02/18 11:41> Clinical Impression: Depression, Head injury, Alcohol intoxication Disposition: HOME SELF-CARE Condition: Stable Instructions: Head Injury (ED), Abuse of Alcohol (ED), Alcohol Intoxication (ED ), Depression (ED) Additional Instructions: Discontinue alcohol use. Please follow-up with care physician in the next couple days for recheck. Please follow-up with mental health services as directed. Return for thoughts of self-harm, worsening symptoms or other concerns. Referrals: Ayesha Murphy MD [Primary Care Provider] - 1-2 days
[2018-02-02 11:49] VITALS: BP 131/79; PULSE 70; RESP 17; TEMP 96.5
== END 2018-02-02 11:52 | disposition home or self-care (01) ==
LOC: EC 23:29
DX: S09.90XA Unspecified injury of head, initial encounter (principal); F10.129 Alcohol abuse with intoxication, unspecified; F32.9 Major depressive disorder, single episode, unspecified; H55.09 Other forms of nystagmus; F17.200 Nicotine dependence, unspecified, uncomplicated; F41.9 Anxiety disorder, unspecified; Z79.899 Other long term (current) drug therapy; Z91.030 Bee allergy status; W17.89XA Other fall from one level to another, initial encounter; Y92.89 Other specified places as the place of occurrence of the external cause
CPT/HCPCS: 70450; 72125; 80306; 82075; 93005; 99284

== ENCOUNTER 2019-01-23 12:16 | Inpatient (IN) | payer MEDICAID, OTHER ==
[2019-01-23] MEDS ORDERED: KETOROLAC 30 MG/ML 1 ML VIAL IVP STA (12:39)
[2019-01-23] MEDS ORDERED: DIAZEPAM 5 MG/ML 2 ML INJ IVP STA (12:39)
[2019-01-23] MEDS ORDERED: LIDOCAINE 1% INJ 10MG/ML (20 ML MDV) SQ ONE (12:40)
--- NOTE | 2019-01-23 12:45 | ED ---
Wound/Laceration HPI - General Source: patient, EMS, RN notes reviewed Mode of arrival: EMS Limitations: no limitations <Zelalem Kramer - Last Filed: 01/23/19 14:01> <Yoel Garcia - Last Filed: 01/23/19 21:11> - General Chief Complaint: Wound/Laceration Stated Complaint: Lt arm lac Time Seen by Provider: 01/23/19 12:25 - History of Present Illness Initial Comments: This a 28-year-old male presents emergency Department via EMS for left arm laceration. Patient also complains that he has low back pain. Patient states that he cut his left forearm using a burr grinder sharp pain is overweight. Patient states his tetanus is up-to-date. Patient does admit that he's been drinking alcohol. Patient states he fell onto the ground after he cut his arm. Denies any head injury no loss conscious. Patient states his back pain is worse in his left arm. There is no active bleeding to the arm. Patient denies any bowel bladder and Kienitz retention. No abdominal pain no lower extremity paresthesias no saddle anesthesias (Zelalem Kramer) - Related Data Home Medications Medication Instructions Recorded Confirmed Ranitidine HCl [Zantac] 150 mg PO BID 02/02/18 01/23/19 Fish Oil(Unknown Dose) 1 cap PO DAILY 01/23/19 01/23/19 Multivitamins, Thera [Multivitamin 1 tab PO DAILY 01/23/19 01/23/19 (formulary)] Vitamin B Complex 1 cap PO DAILY 01/23/19 01/23/19 Vitamin E(Unknown Dose) 1 cap PO DAILY 01/23/19 01/23/19 Allergies Allergy/AdvReac Type Severity Reaction Status Date / Time bee venom protein (honey bee) Allergy Anaphylaxis Verified 01/23/19 14:10 Review of Systems ROS Other: All systems not noted in ROS Statement are negative. <Zelalem Kramer - Last Filed: 01/23/19 14:01> ROS Other: All systems not noted in ROS Statement are negative. <Yoel Garcia - Last Filed: 01/23/19 21:11> ROS Statement: Those systems with pertinent positive or pertinent negative responses have been documented in the HPI. Past Medical History Past Medical History: No Reported History History of Any Multi-Drug Resistant Organisms: None Reported Past Surgical History: No Surgical Hx Reported Past Anesthesia/Blood Transfusion Reactions: No Reported Reaction Past Psychological History: Anxiety, Depression Smoking Status: Current every day smoker Past Alcohol Use History: Abuse, Daily Past Drug Use History: Marijuana, Opiates - Past Family History Father Additional Family Medical History / Comment(s): Father shot himself when he was around 41 years of age. Mother Additional Family Medical History / Comment(s): Mother was shot and killed by patient's father when she was approximately 40 years of age. Patient has one sister that is healthy. He does not have any children. <Zelalem Kramer - Last Filed: 01/23/19 14:01> General Exam Limitations: no limitations General appearance: alert, in no apparent distress Head exam: Present: atraumatic, normocephalic, normal inspection Eye exam: Present: normal appearance, PERRL, EOMI. Absent: scleral icterus, conjunctival injection, periorbital swelling Respiratory exam: Present: normal lung sounds bilaterally. Absent: respiratory distress, wheezes, rales, rhonchi, stridor Cardiovascular Exam: Present: regular rate, normal rhythm, normal heart sounds. Absent: systolic murmur, diastolic murmur, rubs, gallop, clicks Extremities exam: Present: other (Left forearm there is a 3 cm laceration with no active bleeding no tendon involvement patient has full range of motion of the left arm, wrist and hand neurovascular intact, lower extremities within normal limits) Back exam: Present: full ROM, tenderness, paraspinal tenderness. Absent: vertebral tenderness Neurological exam: Present: alert, oriented X3, CN II-XII intact Skin exam: Present: warm, dry, intact, normal color. Absent: rash <Zelalem Kramer - Last Filed: 01/23/19 14:01> Course <Yoel Garcia - Last Filed: 01/23/19 21:11> Vital Signs 01/23/19 01/23/19 12:29 19:28 Temperature 98.0 F Pulse Rate 102 H 110 H Respiratory 18 17 Rate Blood Pressure 125/88 O2 Sat by Pulse 96 96 Oximetry - Reevaluation(s) Reevaluation #1: 01/23/19 21:10 Patient's medically clear for psychiatric evaluation (Yoel Garcia) Reevaluation #2: 01/23/19 21:10 Patient seen here and evaluated with psychiatry, (Yoel Garcia) Procedures - Laceration Laceration #1 Consent Obtained: verbal consent Indication: laceration Site: upper extremity (Left forearm) Size (cm): 3 Description: irregular Anesthetic Used: lidocaine 1%, without epi Anesthesia Technique: local infiltration Amount (mls): 7 Pre-repair: wound explored, irrigated extensively, deep structures intact Type of Sutures: nylon Size of Sutures: 4-0 Number of Sutures: 5 Technique: simple, interrupted Patient Tolerated Procedure: well, no complications <Zelalem Kramer - Last Filed: 01/23/19 14:01> Medical Decision Making <Zelalem Kramer - Last Filed: 01/23/19 14:01> <Yoel Garcia - Last Filed: 01/23/19 21:11> - Medical Decision Making Laceration was repaired using sutures, thoroughly cleaned x-rays obtained of the lower back which shows some spondylosis type changes. Patient's neurovascular intact with no neural symptoms. Patient is complaining a suicidal, depressed. Patient will be evaluated by EPS (Zelalem Kramer) 28 male who be admitted for inpatient psychiatric evaluation and treatment (Yoel Garcia) - Lab Data Lab Results 01/23/19 Range/Units 15:12 Urine Opiates Screen Not Detected (NotDetected) Ur Oxycodone Screen Not Detected (NotDetected) Urine Methadone Screen Not Detected (NotDetected) Ur Propoxyphene Screen Not Detected (NotDetected) Ur Barbiturates Screen Not Detected (NotDetected) U Tricyclic Antidepress Not Detected (NotDetected) Ur Phencyclidine Scrn Not Detected (NotDetected) Ur Amphetamines Screen Not Detected (NotDetected) U Methamphetamines Scrn Not Detected (NotDetected) U Benzodiazepines Scrn Not Detected (NotDetected) Urine Cocaine Screen Not Detected (NotDetected) U Marijuana (THC) Screen Not Detected (NotDetected) Disposition <Zelalem Kramer - Last Filed: 01/23/19 14:01> Is patient prescribed a controlled substance at d/c from ED?: No <Yoel Garcia - Last Filed: 01/23/19 21:11> Clinical Impression: Laceration, Major depressive disorder, recurrent, Suicidal ideation, Depression Disposition: TRANSFER TO PSYCH HOSP/UNIT Condition: Fair Referrals: Ayesha Murphy MD [Primary Care Provider] - 1-2 days
--- NOTE | 2019-01-23 13:49 | XR ---
EXAM TYPE: LUMBAR SPINE X RAY SERIES COMPARISON: NONE HISTORY: Pain TECHNIQUE: 3 views are submitted. FINDINGS: Alignment is anatomic. The pedicles are intact. The transverse processes are intact. There is pers istent suspicion for spondylolysis of L5 with slight anterolisthesis. No compression deformities. IMPRESSION: 1. Despite the lack of oblique views there is suspicion for bilateral spondylolysis L5 with grade 1 a nterolisthesis.
[2019-01-23] MEDS ORDERED: ACETAMINOPHEN TAB 325 MG TAB PO STA (15:04)
[2019-01-23 15:30] LABS: Amphetamine Screen,Urine Not Detected (NotDetected); Barbiturate Screen,Urine Not Detected (NotDetected); Benzodiazepines Screen,Urine Not Detected (NotDetected); Cocaine Screen,Urine Not Detected (NotDetected); Methadone Screen, Urine Not Detected (NotDetected); Opiate Screen,Urine Not Detected (NotDetected); Oxycodone Screen, Urine Not Detected (NotDetected); Phencyclidine Screen,Urine Not Detected (NotDetected); Tricyclic Antidepressant,Urine Not Detected (NotDetected); Urn Cannabinoid Scrn Not Detected (NotDetected)
[2019-01-23] MEDS ORDERED: MAGNESIUM HYDROXIDE 2,400 MG/10 ML CUP PO PRN (21:26)
[2019-01-23] MEDS ORDERED: MAG HYDROX/AL HYDROX/SIMETH 30 ML CUP PO PRN (21:26)
[2019-01-23] MEDS ORDERED: ACETAMINOPHEN TAB 325 MG TAB PO PRN (21:26)
[2019-01-23] MEDS ORDERED: LORazepam 2 MG/ML INJ IM PRN (22:21)
[2019-01-23] MEDS: FAMOTIDINE 20 MG TAB PO SCH (22:21)
[2019-01-23] MEDS: LORazepam 1 MG TAB PO PRN (22:25)
[2019-01-24] MEDS: LORazepam 1 MG TAB PO PRN ×2 (08:19→15:01)
[2019-01-24] MEDS: NICOTINE 14MG/24HR PATCH TRANSDERM SCH ×2 (08:20→08:21)
[2019-01-24] MEDS: MULTIVITAMINS, THERA 1 EACH TAB PO SCH (08:20)
[2019-01-24 08:59] LABS: Basophils % (A) 0 %; Eosinophils # (A) 0.1 k/uL (0-0.7); Eosinophils % (A) 1 %; HCT 42.2 % (39.0-53.0); HGB 13.6 gm/dL (13.0-17.5); Lymphocytes # (A) 1.9 k/uL (1.0-4.8); Lymphocytes % (A) 23 %; MCH 30.2 pg (25.0-35.0); MCHC 32.2 g/dL (31.0-37.0); MCV 93.8 fL (80.0-100.0); Mean Platelet Volume 5.9; Monocytes # (A) 0.7 k/uL (0-1.0); Monocytes % (A) 9 %; Neutrophils # (A) 5.4 k/uL (1.3-7.7); Neutrophils % (A) 65 %; Platelet Count 318 k/uL (150-450); RDW 11.9 % (11.5-15.5); WBC 8.3 k/uL (3.8-10.6)
[2019-01-24 09:08] LABS: ALT 63 U/L (21-72); AST 29 U/L (17-59); African American GFR (CKD) >90 (>60 ml/min/1.73 sqM); Alkaline Phosphatase 80 U/L (38-126); Anion Gap 8 mmol/L; Blood Urea Nitrogen 14 mg/dL (9-20); Calcium 9.5 mg/dL (8.4-10.2); Carbon Dioxide 28 mmol/L (22-30); Chloride 104 mmol/L (98-107); Cholesterol 159 mg/dL (<200); Glucose 93 mg/dL (74-99); HDL Cholesterol 42 mg/dL (40-60); LDL Cholesterol,Calculated 91 mg/dL (0-99); Non-African American GFR(CKD) >90 (>60 ml/min/1.73 sqM); Potassium 4.8 mmol/L (3.5-5.1); Sodium 140 mmol/L (137-145); Total Protein 7.1 g/dL (6.3-8.2); Triglycerides 129 mg/dL (<150)
[2019-01-24] MEDS: FAMOTIDINE 20 MG TAB PO SCH ×2 (10:22→20:33)
[2019-01-24] MEDS: NON FORMULARY DRUG (Vitamin B Complex [Vitamin B Complex] 1 CAP) PO SCH (13:12)
[2019-01-24] MEDS: FISH OIL PO SCH (13:12)
[2019-01-24] MEDS: VITAMIN E (DL,TOCOPHERYL ACET) 400 UNIT CAP PO SCH (13:13)
[2019-01-24] MEDS ORDERED: LORazepam 1 MG TAB PO PRN (14:55)
[2019-01-24] MEDS ORDERED: LORazepam 2 MG/ML INJ IM PRN ×3 (14:55→22:47)
--- NOTE | 2019-01-24 15:27 | P.HP ---
Psychiatric H&P - . H&P Date: 01/24/19 History & Physical: Allergies Allergy/AdvReac Type Severity Reaction Status Date / Time bee venom protein (honey bee) Allergy Anaphylaxis Verified 01/23/19 14:10 Vital Signs Temp 98.8 F 01/24/19 08:02 Pulse 67 01/24/19 15:04 Resp 16 01/23/19 22:22 BP 123/87 01/24/19 15:04 Pulse Ox 98 01/23/19 21:30 Intake & Output 01/23/19 01/24/19 01/24/19 18:59 06:59 18:59 Weight 88.451 kg 91.716 kg Laboratory Last Values WBC 8.3 k/uL (3.8-10.6) 01/24/19 08:08 RBC 4.50 m/uL (4.30-5.90) 01/24/19 08:08 Hgb 13.6 gm/dL (13.0-17.5) 01/24/19 08:08 Hct 42.2 % (39.0-53.0) 01/24/19 08:08 MCV 93.8 fL (80.0-100.0) 01/24/19 08:08 MCH 30.2 pg (25.0-35.0) 01/24/19 08:08 MCHC 32.2 g/dL (31.0-37.0) 01/24/19 08:08 RDW 11.9 % (11.5-15.5) 01/24/19 08:08 Plt Count 318 k/uL (150-450) 01/24/19 08:08 Neutrophils % 65 % 01/24/19 08:08 Lymphocytes % 23 % 01/24/19 08:08 Monocytes % 9 % 01/24/19 08:08 Eosinophils % 1 % 01/24/19 08:08 Basophils % 0 % 01/24/19 08:08 Neutrophils # 5.4 k/uL (1.3-7.7) 01/24/19 08:08 Lymphocytes # 1.9 k/uL (1.0-4.8) 01/24/19 08:08 Monocytes # 0.7 k/uL (0-1.0) 01/24/19 08:08 Eosinophils # 0.1 k/uL (0-0.7) 01/24/19 08:08 Basophils # 0.0 k/uL (0-0.2) 01/24/19 08:08 Sodium 140 mmol/L (137-145) 01/24/19 08:08 Potassium 4.8 mmol/L (3.5-5.1) 01/24/19 08:08 Chloride 104 mmol/L (98-107) 01/24/19 08:08 Carbon Dioxide 28 mmol/L (22-30) 01/24/19 08:08 Anion Gap 8 mmol/L 01/24/19 08:08 BUN 14 mg/dL (9-20) 01/24/19 08:08 Creatinine 0.75 mg/dL (0.66-1.25) 01/24/19 08:08 Est GFR (CKD-EPI)AfAm >90 (>60 ml/min/1.73 sqM) 01/24/19 08:08 Est GFR (CKD-EPI)NonAf >90 (>60 ml/min/1.73 sqM) 01/24/19 08:08 Glucose 93 mg/dL (74-99) 01/24/19 08:08 Calcium 9.5 mg/dL (8.4-10.2) 01/24/19 08:08 Total Bilirubin 1.0 mg/dL (0.2-1.3) 01/24/19 08:08 AST 29 U/L (17-59) 01/24/19 08:08 ALT 63 U/L (21-72) 01/24/19 08:08 Alkaline Phosphatase 80 U/L (38-126) 01/24/19 08:08 Total Protein 7.1 g/dL (6.3-8.2) 01/24/19 08:08 Albumin 4.0 g/dL (3.5-5.0) 01/24/19 08:08 Triglycerides 129 mg/dL (<150) 01/24/19 08:08 Cholesterol 159 mg/dL (<200) 01/24/19 08:08 LDL Cholesterol, Calc 91 mg/dL (0-99) 01/24/19 08:08 HDL Cholesterol 42 mg/dL (40-60) 01/24/19 08:08 TSH 0.463 mIU/L (0.465-4.680) L 01/24/19 08:08 Urine Opiates Screen Not Detected (NotDetected) 01/23/19 15:12 Ur Oxycodone Screen Not Detected (NotDetected) 01/23/19 15:12 Urine Methadone Screen Not Detected (NotDetected) 01/23/19 15:12 Ur Propoxyphene Screen Not Detected (NotDetected) 01/23/19 15:12 Ur Barbiturates Screen Not Detected (NotDetected) 01/23/19 15:12 U Tricyclic Antidepress Not Detected (NotDetected) 01/23/19 15:12 Ur Phencyclidine Scrn Not Detected (NotDetected) 01/23/19 15:12 Ur Amphetamines Screen Not Detected (NotDetected) 01/23/19 15:12 U Methamphetamines Scrn Not Detected (NotDetected) 01/23/19 15:12 U Benzodiazepines Scrn Not Detected (NotDetected) 01/23/19 15:12 Urine Cocaine Screen Not Detected (NotDetected) 01/23/19 15:12 U Marijuana (THC) Screen Not Detected (NotDetected) 01/23/19 15:12 01/24/19 15:15 IDENTIFYING DATA: Patient is a 28-year-old male history of depression and chronic alcohol use who is currently , has 1 son and girlfriend who is currently and lives in [facility]. 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 Patient states that after he cut himself deeply he called his girlfriend who called EMS to take him in the hospital. Patient's wound was sutured and patient was withdrawing from alcohol and claimed that he was depressed and suicidal. Patient was admitted to the mental health unit for depression and alcohol withdrawal. Patient claims that he struggled with alcohol for many years and claims that he is also abusing Klonopin and has been hiding it from the [facility]. Patient denies any suicidality at this time however patient claims that he is feeling anxious and having some mild tremors from alcohol wit hdrawal. He claims to have previously had withdrawal seizures over denies any DTs. He states that he is currently on probation for having several DUIs in the past and serving correction time. The patient reports poor appetite or sleep, poor concentration. Patient denies any suicidal or homicidal ideations intent or plan. At this time patient denies any auditory or visual hallucinations. Patient denies any flight of ideas racing thoughts and increased in goal directed behavior. Patient admits to using Klonopin and alcohol. He denies using any other illicit drugs at this time and UDS on admission was negative. PAST PSYCHIATRIC HISTORY: Patient was previously admitted to the mental health unit in 2017 for depression and alcohol use. Patient is previously been on Paxil, Zoloft and Seroquel. He admits to depression and anxiety. Denies any previous suicide attempts. PMH: Hep C positive, chronic lower back pain ALLERGIES: as per EMR CHEMICAL DEPENDENCY HISTORY: as per HPI FAMILY PSYCHIATRIC/SUBSTANCE USE HISTORY: Patient's father murdered his and committed suicide. SOCIAL HISTORY: Patient was born in [place], and was raised mainly by his uncle after his parents were killed. Patient is currently with his girlfriend has 1 son and girlfriend is with another child. 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 He states that he completed high school. MENTAL STATUS EXAM: General Appearance: [Patient appears to be stated age is alert, irritable, yet attempts to cooperate. Patient has poor hygiene and poor grooming, poor eye contact. Behavior: Patient is calmly seated without any agitated behavior. Speech: Patient's speech is fluent and nonpressured. Soft tone Mood/Affect: Patient reports their mood is depressed, affect is congruent and constricted. Suicidality/Homicidality: Patient denies having any suicidal or homicidal ideation intent or plan. Perceptions: Patient denies any auditory or visual hallucinations. Though content/process: There is no evidence of any delusional thought content and thought process is linear and goal-directed. Memory and concentration: AOX3, grossly intact for the purposes of this session. Can spell "WORLD" backwards Judgment and insight: Poor/impulsive. STRENGTHS/WEAKNESSES: strength is that patient has employment and housing, weaknesses patient has chronic substance use and mental problems. INTELLECT: average IMPRESSIONS: Major depressive disorder Alcohol use disorder, severe, currently in withdrawal Benzodiazepine abuse PLAN: -Patient is admitted under voluntary status to MHU for stabilization of psychiatric symptoms and safety. Patient signed adult voluntary form and medication consent and is placed in patient's chart. -Medications : Will start patient on Lexapro 5 mg daily for mood/anxiety. I'll start patient on Remeron 15 mg daily at bedtime. Will start Librium scheduled 25 mg 3 times a day for alcohol withdrawal with plan to taper off. -Ativan PRN for CIWA >10 -Geodon when necessary for acute agitation. -Patient was counselled on substance abuse and desired to cut back on use -Patient was informed of the risks, benefits and side effects of the medication and patient verbally consented to taking the medications. Patient signed med consent form and was placed in chart. -NRT - nicotine patch -MJ on board for discharge planning 01/24/19 15:26
--- NOTE | 2019-01-24 15:57 | P.CONS ---
History of Present Illness - Reason for Consult Medical clearance - History of Present Illness Patient is a pleasant 28-year-old male was admitted the secondary depression alcohol abuse. Patient apparently drinks daily admits to drinking daily alcohol patient is complaining of lack of sleep probably from chronic alcoholism patient takes Klonopin for sleep and Ativan is not working for him. Patient denied any fever chills nausea vomiting patient admits to smoking about a pack every day patient doesn't have any delirium tremens at this time doesn't have any withdrawals at this time. any fever chills nausea vomiting dysuria. Review of Systems REVIEW OF SYSTEMS: CONSTITUTIONAL: No fever, no malaise, no fatigue. HEENT: No recent visual problems or hearing problems. Denied any sore throat. CARDIOVASCULAR: No chest pain, orthopnea, PND, no palpitations, no syncope. PULMONARY: No shortness of breath, no cough, no hemoptysis. GASTROINTESTINAL: No diarrhea, no nausea, no vomiting, no abdominal pain. NEUROLOGICAL: No headaches, no weakness, no numbness. HEMATOLOGICAL: Denies any bleeding or petechiae. GENITOURINARY: Denies any burning micturition, frequency, or urgency. MUSCULOSKELETAL/RHEUMATOLOGICAL: Denies any joint pain, swelling, or any muscle pain. ENDOCRINE: Denies any polyuria or polydipsia. The rest of the 14-point review of systems is negative. Past Medical History Past Medical History: No Reported History History of Any Multi-Drug Resistant Organisms: None Reported Past Surgical History: No Surgical Hx Reported Past Anesthesia/Blood Transfusion Reactions: No Reported Reaction Past Psychological History: Anxiety, Depression Smoking Status: Current every day smoker Past Alcohol Use History: Abuse, Daily Past Drug Use History: Marijuana, Opiates - Past Family History Father Additional Family Medical History / Comment(s): Father shot himself when he was around 41 years of age. Mother Additional Family Medical History / Comment(s): Mother was shot and killed by patient's father when she was approximately 40 years of age. Patient has one sister that is healthy. He does not have any children. Medications and Allergies Home Medications Medication Instructions Recorded Confirmed Type Ranitidine HCl [Zantac] 150 mg PO BID 02/02/18 01/23/19 History Fish Oil(Unknown Dose) 1 cap PO DAILY 01/23/19 01/23/19 History Multivitamins, Thera [Multivitamin 1 tab PO DAILY 01/23/19 01/23/19 History (formulary)] Vitamin B Complex 1 cap PO DAILY 01/23/19 01/23/19 History Vitamin E(Unknown Dose) 1 cap PO DAILY 01/23/19 01/23/19 History Allergies Allergy/AdvReac Type Severity Reaction Status Date / Time bee venom protein (honey bee) Allergy Anaphylaxis Verified 01/23/19 14:10 Physical Exam Vitals: Vital Signs Temp Pulse Pulse Resp BP BP Pulse Ox 01/24/19 15:04 67 123/87 01/24/19 08:02 98.8 F 01/23/19 22:22 89 16 118/74 01/23/19 21:30 100 16 119/90 98 01/23/19 21:14 98.5 F 104 H 17 137/62 95 01/23/19 19:28 110 H 17 96 Intake and Output 01/24/19 01/24/19 01/24/19 06:59 14:59 22:59 Other: Weight 91.716 kg PHYSICAL EXAMINATION: GENERAL: The patient is alert and oriented x3, not in any acute distress. Well developed, well nourished. HEENT: Pupils are round and equally reacting to light. EOMI. No scleral icterus. No conjunctival pallor. Normocephalic, atraumatic. No pharyngeal erythema. No thyromegaly. CARDIOVASCULAR: S1 and S2 present. No murmurs, rubs, or gallops. PULMONARY: Chest is clear to auscultation, no wheezing or crackles. ABDOMEN: Soft, nontender, nondistended, normoactive bowel sounds. No palpable organomegaly. MUSCULOSKELETAL: No joint swelling or deformity. EXTREMITIES: No cyanosis, clubbing, or pedal edema. NEUROLOGICAL: Gross neurological examination did not reveal any focal deficits. SKIN: No rashes. Results CBC & Chem 7: 01/24/19 08:08 01/24/19 08:08 Labs: Abnormal Lab Results - Last 24 Hours (Table) 01/24/19 Range/Units 08:08 TSH 0.463 L (0.465-4.680) mIU/L Assessment and Plan Plan: -Insomnia secondary to anxiety and chronic alcohol use: Management as per primary service -Major depression -Nicotine use: Counseling was provided regarding this. -History of hepatitis C: Patient will need to follow with gastroneurology as an outpatient for further workup. -Marijuana use: Counseling was provided and alcohol abuse: Counseling was provided regarding this as well his she of the opiate abuse.
[2019-01-24] MEDS: chlordiazePOXIDE 25 MG CAP PO SCH ×2 (16:24→20:33)
[2019-01-24] MEDS: ESCITALOPRAM 5 MG TAB PO SCH (16:56)
[2019-01-24 17:32] LABS: Hemoglobin A1C 5.2 % (4.0-6.0)
[2019-01-24] MEDS: MIRTAZAPINE 15 MG TAB PO SCH (20:33)
[2019-01-25] MEDS: NICOTINE 14MG/24HR PATCH TRANSDERM SCH (08:18)
[2019-01-25] MEDS: chlordiazePOXIDE 25 MG CAP PO SCH ×3 (08:19→20:20)
[2019-01-25] MEDS: MULTIVITAMINS, THERA 1 EACH TAB PO SCH (08:19)
[2019-01-25] MEDS: ESCITALOPRAM 5 MG TAB PO SCH (08:19)
[2019-01-25] MEDS: FAMOTIDINE 20 MG TAB PO SCH ×2 (08:19→20:20)
[2019-01-25] MEDS: VITAMIN E (DL,TOCOPHERYL ACET) 400 UNIT CAP PO SCH (08:20)
[2019-01-25] MEDS: FISH OIL PO SCH (08:20)
[2019-01-25] MEDS: NON FORMULARY DRUG (Vitamin B Complex [Vitamin B Complex] 1 CAP) PO SCH (08:20)
[2019-01-25] MEDS: LORazepam 1 MG TAB PO PRN ×4 (08:23→19:10)
[2019-01-25] MEDS ORDERED: ONDANSETRON 4 MG TAB PO PRN (09:05)
--- NOTE | 2019-01-25 09:17 | P.PN ---
Progress Note - Text Progress Note Date: 01/25/19 Interval History: Patient was seen wandering the hallways and was agreeable to be tried in the o ffice. Patient claims that he is feeling somewhat nauseous today exclaims that she vomited earlier. He states that he is sweating at times. Vital signs appear to be stable except for elevated blood pressure this morning. Patient claims that he had like something for nausea so that it can help with keeping his medications down. He claims that his mood has been mildly improving however patient is focused on needing to get more rest. He states that he did not sleep well last night. Patient also claimed that she is going to try to go to groups today if he has good energy. At this time patient denies any suicidal or homical ideations, intent or plan. Patient denies any auditory, visual hallucinations and denies any paranoia or delusions. Patient denies any side effects from the medications and has been compliant with meds. Mental Status Exam: General Appearance: Patient appears to be stated age is alert, less irritable, attempts to cooperate. Patient has poor hygiene and poor grooming, fair eye contact. Behavior: Patient is calmly seated without any agitated behavior. Speech: Patient's speech is fluent and nonpressured. Mood/Affect: Patient reports their mood is mildly improving, affect is congruent and constricted. Suicidality/Homicidality: Patient denies having any suicidal or homicidal ideation intent or plan. Perceptions: Patient denies any auditory or visual hallucinations. Though content/process: There is no evidence of any delusional thought content and thought process is linear and goal-directed. Memory and concentration: AOX3, grossly intact for the purposes of this session. Judgment and insight: Poor/impulsive. Assessment Major depressive disorder, moderate-severe. Alcohol use disorder, severe, currently in withdrawal Benzodiazepine abuse Plan: -Patient continues to meet criteria for inpatient psychiatric admission for symptom stabilization and safety. Patient has signed adult voluntary form and medication consent and was placed in patient's chart. -Medications: Continue with Lexapro 5 mg daily for mood/anxiety. Continue with Remeron 15 mg nightly for mood/appetite/insomnia. Continue with Librium scheduled 25 mg 3 times a day for alcohol withdrawal with the plan to taper off. -Ativan PRN for CIWA >10, vital signs appear to be stable except for elevation of blood pressure this morning. Need to monitor. -When necessary Geodon for agitation/aggression. -Ordered Zofran when necessary for nausea. -NRT - nicotine patch -SW on board for discharge planning.
[2019-01-25] MEDS: ZIPRASIDONE 20 MG VIAL IM PRN (20:03)
[2019-01-25] MEDS: MIRTAZAPINE 15 MG TAB PO SCH (20:20)
[2019-01-25] MEDS: SULFAMETHOX-TMP 800-160MG 1 EACH TAB PO SCH (20:20)
[2019-01-25] MEDS: NEOMYCIN-BACITRACIN-POLY OINT 14 GM TUBE TOPICAL SCH (21:43)
[2019-01-26] MEDS: ESCITALOPRAM 5 MG TAB PO SCH (08:35)
[2019-01-26] MEDS: SULFAMETHOX-TMP 800-160MG 1 EACH TAB PO SCH ×3 (08:35→20:53)
[2019-01-26] MEDS: chlordiazePOXIDE 25 MG CAP PO SCH (08:35)
[2019-01-26] MEDS: MULTIVITAMINS, THERA 1 EACH TAB PO SCH (08:35)
[2019-01-26] MEDS: FAMOTIDINE 20 MG TAB PO SCH ×2 (08:35→20:53)
[2019-01-26] MEDS: VITAMIN E (DL,TOCOPHERYL ACET) 400 UNIT CAP PO SCH (08:36)
[2019-01-26] MEDS: NICOTINE 14MG/24HR PATCH TRANSDERM SCH (08:36)
[2019-01-26] MEDS: NEOMYCIN-BACITRACIN-POLY OINT 14 GM TUBE TOPICAL SCH ×2 (08:36→22:02)
[2019-01-26] MEDS: LORazepam 1 MG TAB PO PRN ×3 (09:10→20:52)
[2019-01-26] MEDS: NON FORMULARY DRUG (Vitamin B Complex [Vitamin B Complex] 1 CAP) PO SCH (10:15)
[2019-01-26] MEDS: FISH OIL PO SCH (10:15)
[2019-01-26] MEDS ORDERED: ESCITALOPRAM 5 MG TAB PO STA (11:17)
[2019-01-26] MEDS ORDERED: LORazepam 2 MG/ML INJ IM PRN (11:21)
--- NOTE | 2019-01-26 11:28 | P.PN ---
Progress Note - Text Progress Note Date: 01/26/19 Interval History: Patient was seen wandering the hallways and was agreeable to be tried in the o ffice. Continues to state that he feels anxiety during the day from the withdrawal of alcohol however patient was directable and agreeable to continue titrating down on the Ativan and Librium. Patient stated that he is continuing to feel some nausea however feels that the Zofran is helping him with this. He claims that his mood has been mildly improving and patient is attempting to go to groups and participate as best as he can. He states that he did not sleep well last night and is requesting to have his Remeron unchanged to Seroquel as he claims that he feels more irritable at nighttime and Seroquel helped him in the past. Patient also claimed that he is going to try to go to groups today if he has good energy. At this time patient denies any suicidal or homical ideations, intent or plan. Patient denies any auditory, visual hallucinations and denies any paranoia or delusions. Patient denies any side effects from the medications and has been compliant with meds. Mental Status Exam: General Appearance: Patient appears to be stated age is alert, irritable, attempts to cooperate and is directable. Patient has poor hygiene and poor grooming, fair eye contact. Behavior: Patient is calmly seated without any agitated behavior. Speech: Patient's speech is fluent and nonpressured. Mood/Affect: Patient reports their mood is mildly improving, affect is congruent and constricted. Suicidality/Homicidality: Patient denies having any suicidal or homicidal ideation intent or plan. Perceptions: Patient denies any auditory or visual hallucinations. Though content/process: There is no evidence of any delusional thought content and thought process is linear and goal-directed. Memory and concentration: AOX3, grossly intact for the purposes of this session. Judgment and insight: Poor/impulsive, mildly improving. Assessment Major depressive disorder, moderate-severe. Alcohol use disorder, severe, currently in withdrawal Benzodiazepine abuse Plan: -Patient continues to meet criteria for inpatient psychiatric admission for symptom stabilization and safety. Patient has signed adult voluntary form and medication consent and was placed in patient's chart. -Medications: Increased Lexapro 10 mg daily for mood/anxiety. Remeron discontinued at this time and replaced with Seroquel 50 mg daily at bedtime for irritability/insomnia. Continue titrating down Librium 20 mg 3 times a day for alcohol withdrawal with the plan to taper off. -Ativan PRN for CIWA >10, will continue to be titrated down. -When necessary Geodon for agitation/aggression. -Zofran when necessary for nausea. -NRT - nicotine patch -SW on board for discharge planning. Likely discharge next week.
[2019-01-26 14:19] LABS: Appearance,Urine Clear (Clear); Bilirubin,Urine Negative (Negative); Blood,Urine Negative (Negative); Color,Urine Yellow; Glucose,Urine (UA) Negative (Negative); Ketones,Urine Negative (Negative); Leukocyte Esterase,Urine Negative (Negative); Nitrite,Urine Negative (Negative); PH, Urine 7.5 (5.0-8.0); Protein,Urine Negative (Negative); Urobilinogen,Urine <2.0 mg/dL (<2.0)
[2019-01-26] MEDS ORDERED: QUEtiapine 50 MG TAB PO SCH (21:00)
[2019-01-26] MEDS: ZIPRASIDONE 20 MG VIAL IM PRN (23:00)
[2019-01-27 07:03] VITALS: RESP 18; TEMP 96.7
[2019-01-27] MEDS: MULTIVITAMINS, THERA 1 EACH TAB PO SCH (07:56)
[2019-01-27] MEDS: FISH OIL PO SCH (07:56)
[2019-01-27] MEDS: FAMOTIDINE 20 MG TAB PO SCH (07:56)
[2019-01-27] MEDS: VITAMIN E (DL,TOCOPHERYL ACET) 400 UNIT CAP PO SCH (07:56)
[2019-01-27] MEDS: SULFAMETHOX-TMP 800-160MG 1 EACH TAB PO SCH (07:56)
[2019-01-27] MEDS: NON FORMULARY DRUG (Vitamin B Complex [Vitamin B Complex] 1 CAP) PO SCH (07:58)
[2019-01-27] MEDS: NEOMYCIN-BACITRACIN-POLY OINT 14 GM TUBE TOPICAL SCH (07:58)
[2019-01-27] MEDS: NICOTINE 14MG/24HR PATCH TRANSDERM SCH (07:58)
[2019-01-27] MEDS ORDERED: ESCITALOPRAM 10 MG TAB PO SCH (09:00)
--- NOTE | 2019-01-27 10:51 | P.PN ---
Progress Note - Text Progress Note Date: 01/27/19 Interval History: Patient was seen laying down in his bed and was agreeable to speak to securities underwriter. Patient claimed that yesterday he had a rough night going to bed as he claimed there was "some copy stuff going on at home" and became agitated and required Geodon when necessary and slept afterwards. He states that the Seroquel dose was not enough needing more help for sleep but claims that now that he is sleeping he feels much better. He claims that his anxiety has been improving. he also admits to improvement in his mood. Patient also claimed that he is going to try to go to groups today. At this time patient denies any suicidal or homical ideations, intent or plan. Patient denies any auditory, visual hallucinations and denies any paranoia or delusions. Patient denies any side effects from the medications and has been compliant with meds. Mental Status Exam: General Appearance: Patient appears to be stated age is alert, less irritable, attempts to cooperate. Patient has improving hygiene and poor grooming, fair eye contact. Behavior: Patient is calmly seated without any agitated behavior. Speech: Patient's speech is fluent and nonpressured. Mood/Affect: Patient reports their mood is mildly improving, affect is congruent and constricted. Suicidality/Homicidality: Patient denies having any suicidal or homicidal ideation intent or plan. Perceptions: Patient denies any auditory or visual hallucinations. Though content/process: There is no evidence of any delusional thought content and thought process is linear and goal-directed. Memory and concentration: AOX3, grossly intact for the purposes of this session. Judgment and insight: Poor/impulsive, mildly improving. Assessment Major depressive disorder, moderate-severe. Alcohol use disorder, severe, currently in withdrawal Benzodiazepine abuse Plan: -Patient continues to meet criteria for inpatient psychiatric admission for symptom stabilization and safety. Patient has signed adult voluntary form and medication consent and was placed in patient's chart. -Medications: Continue with Lexapro 10 mg daily for mood/anxiety. Increased Seroquel 100 mg daily at bedtime for irritability/insomnia. We will continue titrating down Librium tomorrow. -Ativan PRN for CIWA >10, will continue to be titrated down. -When necessary Geodon for agitation/aggression. -Zofran when necessary for nausea. -NRT - nicotine patch -SW on board for discharge planning. Likely discharge next week.
[2019-01-27] MEDS: LORazepam 1 MG TAB PO PRN (14:12)
[2019-01-27 15:35] VITALS: PULSE 108
[2019-01-27 15:36] VITALS: BP 145/68
--- NOTE | 2019-01-27 16:04 | CT ---
EXAMINATION TYPE: CT brain cspine wo con DATE OF EXAM: 01/27/2019 COMPARISON: 02/02/2018 HISTORY: Fall and seizure. Neck pain. Headache CT DLP: 1486.4 mGycm Automated exposure control for dose reduction was used. TECHNIQUE: CT scan of the head and cervical spine are performed without contrast. FINDINGS: Ventricles and sulci appear normal. There is no mass effect nor midline shift. There is n o sign of intracranial hemorrhage. The calvarium is intact. Cervical vertebra have normal spacing and alignment. Posterior elements are intact. Skull base is int act. There is no compression fracture. Facet joints are intact. IMPRESSION: Normal CT scan of the brain. Normal CT scan cervical spine. New graft no change compared to old exam.
[2019-01-27] MEDS ORDERED: QUEtiapine 100 MG TAB PO SCH (21:00)
--- NOTE | 2019-01-31 09:47 | P.DS ---
Providers Date of admission: 01/23/19 21:10 Expected date of discharge: 01/27/19 Attending physician: Julio Torres MD Consults: 01/23/19 21:26 Consult Physician Routine Consulting Provider: Timothy Stanley Consult Reason/Comments: H&P and medical and wound care Do you want consulting provider notified?: Yes Primary care physician: Katherine Hodge - Discharge Diagnosis(es) (1) Major depressive disorder without psychotic features Status: Acute Priority: High (2) Alcohol use disorder, severe, dependence Status: Acute Priority: Medium (3) Benzodiazepine abuse Status: Acute Priority: Medium Hospital Course: Admission HPI: Patient is a 28-year-old male history of depression and chronic alcohol use who is currently , has 1 son and girlfriend who is currently and lives in [facility]. 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 Patient states that after he cut himself deeply he called his girlfriend who called EMS to take him in the hospital. Patient's wound was sutured and patient was withdrawing from alcohol and claimed that he was depressed and suicidal. Patient was admitted to the mental health unit for depression and alcohol withdrawal. Patient claims that he struggled with alcohol for many years and claims that he is also abusing Klonopin and has been hiding it from the [facility]. Patient denies any suicidality at this time however patient claims that he is feeling anxious and having some mild tremors from alcohol withdrawal. He claims to have previously had withdrawal seizures over denies any DTs. He states that he is currently on probation for having several DUIs in the past and serving nursing home time. The patient reports poor appetite or sleep, poor concentration. Patient denies any suicidal or homicidal ideations intent or plan. At this time patient denies any auditory or visual hallucinations. Patient denies any flight of ideas racing thoughts and increased in goal directed behavior. Patient admits to using Klonopin and alcohol. He denies using any other illicit drugs at this time and UDS on admission was negative. Hospital course: Upon admission to the unit patient was initially isolative, depressed and anxious and going through withdrawals and alcohol. Patient was however directable and agreeable to commence treatment. Patient got along well with other patients on the unit and followed unit protocol. Patient was compliant with the medications and denied any side effects throughout hospital course. Patient was placed on a Librium taper and Ativan when necessary as per CIWA protocol. Patient was started on Lexapro and titrated up to 10 mg daily for anxiety/mood, also started on Seroquel titrated up to 100 mg daily at bedtime for mood/agitation/anxiety. Patient spoke of his stressors and engaged in therapy both group and individual. Patient was also seen by medical team for history and physical exam. Throughout the course of the hospitalization patient gradually was improving with regards to mood, anxiety, sleep however On the day of discharge, patient was noted by staff to be having a seizure after attending group therapy and internal medicine was called and patient was transferred off the unit for management/treatment of his seizures. Mental status exam on day of discharge: General Appearance: Patient appears to be stated age is alert, less irritable, attempts to cooperate. Patient has improving hygiene and poor grooming, fair eye contact. Behavior: Patient is calmly seated without any agitated behavior. Speech: Patient's speech is fluent and nonpressured. Mood/Affect: Patient reports their mood is mildly improving, affect is congruent and constricted. Suicidality/Homicidality: Patient denies having any suicidal or homicidal ideation intent or plan. Perceptions: Patient denies any auditory or visual hallucinations. Though content/process: There is no evidence of any delusional thought content and thought process is linear and goal-directed. Memory and concentration: AOX3, grossly intact for the purposes of this session. Judgment and insight: Poor/impulsive, mildly improving. Impression: Major depressive disorder, moderate-severe. Alcohol use disorder, severe, currently in withdrawal Benzodiazepine abuse Plan: -Continue medications: Lexapro 10 mg daily for mood/anxiety. Continue with Seroquel 100 mg daily at bedtime for irritability/insomnia/anxiety. Librium was tapered off. Continue with Ativan when necessary for CIWA and seizures. -Patient will be monitored in the ICU at the medical floors for seizures of unknown cause. -Patient will be followed by psychiatry for further management of psychiatric issues and if patient needs to be readmitted back to mental health unit. Patient Condition at Discharge: Serious Plan - Discharge Summary New Discharge Prescriptions: Continue Ranitidine HCl [Zantac] 150 mg PO BID Vitamin E(Unknown Dose) 1 cap PO DAILY Vitamin B Complex 1 cap PO DAILY Multivitamins, Thera [Multivitamin (formulary)] 1 tab PO DAILY Fish Oil(Unknown Dose) 1 cap PO DAILY Discharge Medication List Ranitidine HCl [Zantac] 150 mg PO BID 02/02/18 [History] Fish Oil(Unknown Dose) 1 cap PO DAILY 01/23/19 [History] Multivitamins, Thera [Multivitamin (formulary)] 1 tab PO DAILY 01/23/19 [History] Vitamin B Complex 1 cap PO DAILY 01/23/19 [History] Vitamin E(Unknown Dose) 1 cap PO DAILY 01/23/19 [History] Follow up Appointment(s)/Referral(s): Ayesha Murphy MD [Primary Care Provider] - 1-2 days Discharge Disposition: DC/[facility] INTERMEDI[facility]ARE FAC
== END 2019-01-27 15:29 | disposition home or self-care (01) | DRG 885 ==
LOC: EC 12:16 → 3MHU 21:10
PROVIDERS: ADMIT Psychiatry & Neurology Psychiatry; ATTEND Psychiatry & Neurology Psychiatry
DX: F33.2 Major depressive disorder, recurrent severe without psychotic features (principal); F10.239 Alcohol dependence with withdrawal, unspecified; R45.851 Suicidal ideations; S51.812A Laceration without foreign body of left forearm, initial encounter; W29.8XXA Contact with other powered hand tools and household machinery, initial encounter; M54.9 Dorsalgia, unspecified; F13.10 Sedative, hypnotic or anxiolytic abuse, uncomplicated; Z71.6 Tobacco abuse counseling; F17.210 Nicotine dependence, cigarettes, uncomplicated; Z71.41 Alcohol abuse counseling and surveillance of alcoholic; Z71.51 Drug abuse counseling and surveillance of drug abuser; F41.9 Anxiety disorder, unspecified; M47.9 Spondylosis, unspecified; Z65.3 Problems related to other legal circumstances; Z81.8 Family history of other mental and behavioral disorders; Z79.899 Other long term (current) drug therapy; G47.00 Insomnia, unspecified; R45.1 Restlessness and agitation; F11.10 Opioid abuse, uncomplicated; Z91.030 Bee allergy status; Z91.81 History of falling
CPT/HCPCS: 12002; 70450; 72100; 72125; 80053; 80061; 80306; 81003; 82075; 83036; 84443; 85025; 96374; 96375; 99285

== ENCOUNTER 2019-01-27 15:41 | Inpatient (IN) | payer OTHER ==
[2019-01-27 16:16] LABS: Glucose,Whole Blood 109 mg/dL (75-99)
[2019-01-27] MEDS ORDERED: ACETAMINOPHEN TAB 325 MG TAB PO PRN (16:33)
[2019-01-27] MEDS ORDERED: NALOXONE 0.4 MG/ML 1 ML VIAL IV PRN (16:33)
[2019-01-27] MEDS ORDERED: THIAMINE 100 MG/ML 2 ML VIAL IM STA (16:37)
[2019-01-27] MEDS ORDERED: TEMAZEPAM 15 MG CAP PO PRN (16:40)
[2019-01-27 17:03] VITALS: BMI 26.3
[2019-01-27] MEDS: LORazepam 2 MG/ML INJ IV PRN ×6 (17:44→21:08)
--- NOTE | 2019-01-27 17:59 | HP ---
HISTORY AND PHYSICAL CHIEF COMPLAINT: Seizure. HISTORY OF PRESENT ILLNESS: This 28-year-old gentleman with a past medical history of multiple medical problems, including alcohol dependence, history of depression, history of anxiety, history of nicotine dependence, being followed by no primary physician in the outpatient setting, was recently admitted to the psych floor. The patient apparently had a seizure a few years ago, but while on the psych floor the patient had multiple tonic-clonic seizures, and he was transferred to ICU for observation and management at this time. Postictally the patient has improved significantly and the patient does not have any confusion, but the patient is unable to remember what happened. There is no weakness. A CT scan of the head and cervical spine was also done which did not show any acute abnormality. The patient was in [place] and was also at 3/ house. Patient apparently drinks heavily, up to a pint of alcohol. There is no history of any fever, rigor or chills at this time. No history of chest pain or palpitations, hematochezia or melena, either. PAST MEDICAL HISTORY: 1. History of anxiety. 2. Depression. 3. History of nicotine dependence. 4. History of seizures, as mentioned earlier. MEDICATIONS: 1. Multivitamins 1 p.o. daily. 2. Ranitidine. 3. Fish oil. ALLERGIES: BEE VENOM. FAMILY HISTORY: History of suicidal in father, who shot himself at the age of 40 years. SOCIAL HISTORY: History of smoking and alcohol. REVIEW OF SYSTEMS: ENT: No diminished hearing. No diminished vision. CARDIOVASCULAR SYSTEM: No angina, palpitations. RESPIRATORY SYSTEM: No cough, hemoptysis. GI: No nausea, vomiting. : No dysuria or retention. NERVOUS SYSTEM: As mentioned earlier. ALLERGY/IMMUNOLOGY: No asthma, hayfever. MUSCULOSKELETAL: As mentioned earlier. HEMATOLOGY/ONCOLOGY: No history of anemia. ENDOCRINE: No history of diabetes, hypothyroidism. CONSTITUTIONAL: As mentioned earlier. DERMATOLOGY: Negative. RHEUMATOLOGY: Negative. PSYCHIATRY: As mentioned earlier. PHYSICAL EXAMINATION: Patient is alert, oriented x3. Pulse is ntd, blood pressure 120/90, respiration 20, temperature normal. HEENT: Conjunctivae normal. Oral mucosa moist. NECK: No jugular venous distention. No carotid bruit. No lymph node enlargement. CARDIOVASCULAR SYSTEM: S1, S2 muffled. No S3. No S4. RESPIRATORY SYSTEM: Breath sounds diminished at the bases. No rhonchi. No crackles. ABDOMEN: Soft, non-tender. No mass palpable. LEGS: No edema. No swelling. NERVOUS SYSTEM: Higher functions as mentioned earlier. Moves all 4 limbs. No focal motor or sensory deficit. LYMPHATICS: No lymph node palpable in neck, axillae or groin. SKIN: No ulcer, rash, bleeding. JOINTS: No active deforming arthropathy. LABS: Glucose 109 at this time. ASSESSMENT: 1. Acute tonic-clonic seizures, possibly alcohol withdrawal seizures. 2. History of seizure disorder. 3. History of ethanol. 4. History of insomnia. 5. Major depression and anxiety. 6. History of hepatitis C. 7. History of tetrahydrocannabinol. 8. History of continued ongoing nicotine dependence. 9. FULL CODE. RECOMMENDATIONS AND DISCUSSION: In this 28-year-old gentleman who presented with multiple complex medical issues, we will monitor the patient closely, continue the current medications, continue symptomatic treatment. I recommend initiating [facility] neurology and psychiatric consultations. DVT prophylaxis. Symptomatic treatment. Otherwise, CIWA protocol. Prognosis guarded because of multiple complex medical issues. We will monitor the patient in ICU overnight and continue to monitor. Ativan p.r.n. may be given in case of recurrent seizures. Otherwise, supplement vitamins. See orders for further details. Proton pump inhibitors. DVT prophylaxis. Further recommendations to follow. I also recommend that the patient follow up closely with a primary physician as well as rehab after discharge from the hospital. MMREGL / CECYN: [id number] / MTDD
[2019-01-27 19:27] LABS: Appearance,Urine Clear (Clear); Bilirubin,Urine Negative (Negative); Blood,Urine Negative (Negative); Color,Urine Light Yellow; Glucose,Urine (UA) Negative (Negative); Ketones,Urine Negative (Negative); Leukocyte Esterase,Urine Negative (Negative); Nitrite,Urine Negative (Negative); PH, Urine 6.5 (5.0-8.0); Protein,Urine Negative (Negative); Specific Gravity,Urine 1.008 (1.001-1.035); Urobilinogen,Urine <2.0 mg/dL (<2.0)
[2019-01-27] MEDS ORDERED: HALOPERIDOL LACTATE 5 MG/ML 1 ML VIAL IVP PRN (19:37)
[2019-01-27] MEDS: LORazepam 1 MG TAB PO PRN (20:19)
[2019-01-27] MEDS: HALOPERIDOL LACTATE 5 MG/ML 1 ML VIAL IVP PRN (20:24)
[2019-01-27] MEDS: levETIRAcetam IV 750 MG in SODIUM CHLORIDE 0.9% 100 ML IVPB SCH (22:13)
[2019-01-28] MEDS: HEPARIN SODIUM,PORCINE 5,000 UNIT/ML 1 ML VIAL SQ SCH ×4 (00:17→23:48)
[2019-01-28 06:09] LABS: Basophils # (A) 0.1 k/uL (0-0.2); Basophils % (A) 1 %; Eosinophils # (A) 0.2 k/uL (0-0.7); Eosinophils % (A) 2 %; HCT 46.1 % (39.0-53.0); HGB 14.7 gm/dL (13.0-17.5); Lymphocytes # (A) 2.9 k/uL (1.0-4.8); Lymphocytes % (A) 40 %; MCH 29.8 pg (25.0-35.0); MCHC 31.8 g/dL (31.0-37.0); MCV 93.7 fL (80.0-100.0); Mean Platelet Volume 6.5; Monocytes # (A) 0.4 k/uL (0-1.0); Monocytes % (A) 6 %; Neutrophils # (A) 3.5 k/uL (1.3-7.7); Neutrophils % (A) 48 %; Platelet Count 321 k/uL (150-450); RBC 4.92 m/uL (4.30-5.90); RDW 12.1 % (11.5-15.5); WBC 7.3 k/uL (3.8-10.6)
[2019-01-28 06:19] LABS: African American GFR (CKD) >90 (>60 ml/min/1.73 sqM); Anion Gap 10 mmol/L; Blood Urea Nitrogen 18 mg/dL (9-20); Calcium 9.4 mg/dL (8.4-10.2); Carbon Dioxide 22 mmol/L (22-30); Chloride 104 mmol/L (98-107); Glucose 88 mg/dL (74-99); Non-African American GFR(CKD) >90 (>60 ml/min/1.73 sqM); Potassium 4.7 mmol/L (3.5-5.1); Sodium 136 mmol/L (137-145)
[2019-01-28] MEDS: THIAMINE 100 MG TAB PO SCH ×2 (06:46→16:07)
[2019-01-28] MEDS: PANTOPRAZOLE 40 MG TABLET PO SCH (06:46)
[2019-01-28] MEDS: levETIRAcetam IV 750 MG in SODIUM CHLORIDE 0.9% 100 ML IVPB SCH ×2 (09:33→22:11)
--- NOTE | 2019-01-28 11:05 | P.CNPUL ---
History of Present Illness Consult date: 01/28/19 Chief complaint: Seizures History of present illness: Is a 28-year-old male patient with known history of alcoholism and history of depression who presented to the hospital on 01/24/2019 after being intoxicated work from alcohol claiming that he drank for the past week approximately a fifth of vodka on a daily basis. 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 After he cut himself, he came into the hospital upon the request of his girlfriend. The patient's wound was sutured. He was withdrawing from alcohol and he claimed that he was depressed and suicidal. The patient has been admitted to the mental health unit for depression and alcohol withdrawal. He has been struggling with alcohol abuse for many years and he has been also abusing Klonopin. He was quit e anxious. He was having tremors initially along with cold withdrawal. He has had previous withdrawal seizures. He is currently on probation for having several DUIs and he has also served alf time. He was having issues with poor appetite, chronic insomnia, inability to concentrate. Denies having any visual or auditory hallucinations. He denied using any other drugs and his urine drug screen was essentially was negative. As the patient was being treated in a psych unit, the patient developed seizure activity yesterday. A team was called and the patient got transferred to the intensive care unit. This morning, as I was finishing viral, the patient had another bout. He felt that this was coming. He felt the aura. He did have some visual changes. Following that, I witnessed this patient jerking initially tonic and then tonic-clonic activity was noted for almost a minutes. Was given given Ativan 2 mg IV push. Note that over the past 24 hours the patient has required Ativan to break his seizures and he has also taken Haldol. He has taken a total of 7 mg of Ativan for epis odic seizures yesterday and he did have a total of 3 seizures yesterday [id number] lasting less than a minute tonic-clonic in nature. The patient is also on Keppra the dose of 750 mg every 12 hours IV. No reported aspiration. No respiratory difficulties. No headaches. No neck stiffness. No fever. No chills. CT scan scan of the head and the cervical spine were both negative. Past Medical History Past Medical History: Seizure Disorder Additional Past Medical History / Comment(s): Hepatitis C, alcoholism History of Any Multi-Drug Resistant Organisms: None Reported Past Surgical History: No Surgical Hx Reported Past Anesthesia/Blood Transfusion Reactions: No Reported Reaction Past Psychological History: Anxiety, Depression, PTSD Smoking Status: Current every day smoker Past Alcohol Use History: Abuse, Daily Additional Past Alcohol Use History / Comment(s): Patient is a smoker of pack of cigarettes per day for the past 5 years. He denies any marijuana use. He does have history of alcoholism and has been drinking up to a fifth of liquor per day. - Past Family History Father Additional Family Medical History / Comment(s): Father shot himself when he was around 41 years of age. Mother Additional Family Medical History / Comment(s): Mother was shot and killed by patient's father when she was approximately 40 years of age. Patient has one sister that is healthy. He does not have any children. Medications and Allergies Home Medications Medication Instructions Recorded Confirmed Type Ranitidine HCl [Zantac] 150 mg PO BID 02/02/18 01/27/19 History Fish Oil(Unknown Dose) 1 cap PO DAILY 01/23/19 01/27/19 History Multivitamins, Thera [Multivitamin 1 tab PO DAILY 01/23/19 01/27/19 History (formulary)] Vitamin B Complex 1 cap PO DAILY 01/23/19 01/27/19 History Vitamin E(Unknown Dose) 1 cap PO DAILY 01/23/19 01/27/19 History Allergies Allergy/AdvReac Type Severity Reaction Status Date / Time bee venom protein (honey bee) Allergy Anaphylaxis Verified 01/27/19 16:57 Physical Exam Vitals: Vital Signs Temp Pulse Resp BP Pulse Ox 01/28/19 09:00 74 20 89/65 98 01/28/19 08:00 69 14 98/58 98 01/28/19 07:00 57 L 14 90/61 94 L 01/28/19 06:00 58 L 15 89/53 94 L 01/28/19 05:00 61 12 96/66 95 01/28/19 04:00 97.9 F 70 15 91/60 94 L 01/28/19 03:00 63 14 96/59 95 01/28/19 02:00 61 10 L 93/56 96 01/28/19 01:00 68 16 119/78 96 01/28/19 00:00 71 18 117/76 95 01/27/19 23:00 66 17 111/69 95 01/27/19 22:00 75 19 121/71 87 L 01/27/19 21:00 98.5 F 84 20 133/90 94 L 01/27/19 20:00 18 01/27/19 19:00 73 18 140/51 96 01/27/19 18:00 62 17 120/86 95 01/27/19 17:00 67 12 124/61 94 L Intake and Output 01/27/19 01/28/19 01/28/19 22:59 06:59 14:59 Intake Total 500 80 10 Output Total 550 700 Balance -50 -620 10 Intake: IV 80 10 0.9 Normal Saline KVO 80 10 Intake, IV Titration 100 Amount levETIRAcetam IV 750 mg 100 In Sodium Chloride 0.9% 100 ml @ 400 mls/hr IVPB Q12HR [facility] Rx#:[id number] Oral 400 Output: Urine 550 700 Other: # Voids 1 Weight 85.7 kg 88 kg The patient appeared well nourished and normally developed. Vital signs as docum ented. Head exam is unremarkable. No scleral icterus or corneal arcus noted. Neck is without jugular venous distension, thyromegaly, or carotid bruits. Carotid upstrokes are brisk bilaterally. Lungs are clear to auscultation and percussion. Cardiac exam reveals the PMI to be normally sized and situated. Rhythm is regular. First and second heart sounds normal. No murmurs, rubs or gallops. Abdominal exam reveals normal bowel sounds, no masses, no organomegaly and no aortic enlargement. Extremities are nonedematous and both femoral and pedal pulses are normal.Examination of the skin revealed no evidence of significant rashes, suspicious appearing nevi or other concerning lesions.. Neurologically the patient was postictal along the seizure activity and currently is gradually regaining his consciousness and is following commands and answering questions appropriately. He is moving 4 extremities without any limitation. Results - Laboratory Findings CBC and BMP: 01/28/19 05:31 01/28/19 05:34 ABG WBC 7.3 k/uL (3.8-10.6) 01/28/19 05:31 RBC 4.92 m/uL (4.30-5.90) 01/28/19 05:31 Hgb 14.7 gm/dL (13.0-17.5) 01/28/19 05:31 Hct 46.1 % (39.0-53.0) 01/28/19 05:31 MCV 93.7 fL (80.0-100.0) 01/28/19 05:31 MCH 29.8 pg (25.0-35.0) 01/28/19 05:31 MCHC 31.8 g/dL (31.0-37.0) 01/28/19 05:31 RDW 12.1 % (11.5-15.5) 01/28/19 05:31 Plt Count 321 k/uL (150-450) 01/28/19 05:31 Neutrophils % 48 % 01/28/19 05:31 Lymphocytes % 40 % 01/28/19 05:31 Monocytes % 6 % 01/28/19 05:31 Eosinophils % 2 % 01/28/19 05:31 Basophils % 1 % 01/28/19 05:31 Neutrophils # 3.5 k/uL (1.3-7.7) 01/28/19 05:31 Lymphocytes # 2.9 k/uL (1.0-4.8) 01/28/19 05:31 Monocytes # 0.4 k/uL (0-1.0) 01/28/19 05:31 Eosinophils # 0.2 k/uL (0-0.7) 01/28/19 05:31 Basophils # 0.1 k/uL (0-0.2) 01/28/19 05:31 Sodium 136 mmol/L (137-145) L 01/28/19 05:34 Potassium 4.7 mmol/L (3.5-5.1) 01/28/19 05:34 Chloride 104 mmol/L (98-107) 01/28/19 05:34 Carbon Dioxide 22 mmol/L (22-30) 01/28/19 05:34 Anion Gap 10 mmol/L 01/28/19 05:34 BUN 18 mg/dL (9-20) 01/28/19 05:34 Creatinine 0.79 mg/dL (0.66-1.25) 01/28/19 05:34 Est GFR (CKD-EPI)AfAm >90 (>60 ml/min/1.73 sqM) 01/28/19 05:34 Est GFR (CKD-EPI)NonAf >90 (>60 ml/min/1.73 sqM) 01/28/19 05:34 Glucose 88 mg/dL (74-99) 01/28/19 05:34 POC Glucose (mg/dL) 109 mg/dL (75-99) H 01/27/19 16:04 POC Glu Verifier ID Cristel Law 01/27/19 16:04 Calcium 9.4 mg/dL (8.4-10.2) 01/28/19 05:34 Urine Color Light Yellow 01/27/19 18:53 Urine Appearance Clear (Clear) 01/27/19 18:53 Urine pH 6.5 (5.0-8.0) 01/27/19 18:53 Ur Specific [place] 1.008 (1.001-1.035) 01/27/19 18:53 Urine Protein Negative (Negative) 01/27/19 18:53 Urine Glucose (UA) Negative (Negative) 01/27/19 18:53 Urine Ketones Negative (Negative) 01/27/19 18:53 Urine Blood Negative (Negative) 01/27/19 18:53 Urine Nitrite Negative (Negative) 01/27/19 18:53 Urine Bilirubin Negative (Negative) 01/27/19 18:53 Urine Urobilinogen <2.0 mg/dL (<2.0) 01/27/19 18:53 Ur Leukocyte Esterase Negative (Negative) 01/27/19 18:53 Abnormal lab findings: Abnormal Labs 01/27/19 01/28/19 16:04 05:34 Sodium 136 L POC Glucose (mg/dL) 109 H Assessment and Plan Plan: 1 recurrent seizures, consider alcohol versus benzodiazepine withdrawal seizures. CAT scan of the brain is negative. The patient is currently on Keppra. Last bout of seizure was earlier this morning at 10:40 AM. The patient is recovering from his postictal state. He was given Ativan 2 mg IV during his last bout of seizure activity. 2 alcoholism 3 benzodiazepine abuse 4 major depression 5 altered mentation/postictal state. Plan Neurology consultation. Continue Keppra. EEG. Check CPK. IV fluids at the rate of 75 mL an hour. Aspiration precautions. Thiamine 100 mg and folate. DVT and GI prophylaxis. Psych follow-up. We'll continue to follow.
[2019-01-28] MEDS: LORazepam 2 MG/ML INJ IV PRN ×13 (11:07→20:02)
[2019-01-28] MEDS: FOLIC ACID 1 MG TAB PO SCH (12:23)
[2019-01-28] MEDS: LORazepam 1 MG TAB PO PRN ×4 (12:23→20:02)
--- NOTE | 2019-01-28 14:30 | XR ---
EXAMINATION TYPE: XR chest 1V portable DATE OF EXAM: 01/28/2019 COMPARISON: 01/26/2017 HISTORY: Heart failure TECHNIQUE: Single frontal view of the chest is obtained. FINDINGS: There is no heart failure nor confluent pneumonic infiltrate. Costophrenic angles are ayaka r. There are chest leads. Bony thorax appears intact. IMPRESSION: Normal chest. No change.
--- NOTE | 2019-01-28 14:48 | P.CN ---
Psychiatric Consult - . Consult date: 01/28/19 Consult:: IDENTIFYING DATA: Patient is a 28-year-old male history of depression and chronic alcohol use who is currently , has 1 son and girlfriend who is currently and lives in three-quarter house. HPI: Patient presented to the hospital initially after being intoxicated at work from alcohol claiming that he drank for the past week but a fifth of vodka per day and was sharpening chain saws and cut himself and fell on the floor. Patient was being treated on the mental health floor for depression anxiety and alcohol withdrawal however yesterday patient was in group and claimed that she did not like the topic that was being discussed and was anxious and afterwards had a seizure. Patient admitted to having an aura prior to the seizure described it as "almost like blacking out". Patient was then evaluated after medical team was called and patient was transferred to the ICU for care. Patient afterwards had several seizures with the last one being this morning. Patient has been receiving Ativan when necessary for the seizures. Patient claims that he is feeling anxious still and claims that he's never had this many seizures before he also stated that he is contained to feel depressed. He stated that he had poor sleep last night as his Seroquel was not started. Patient admits to abusing Klonopin and alcohol. He denies using any other illicit drugs at this time and UDS on admission was negative. PAST PSYCHIATRIC HISTORY: Patient was previously admitted to the mental health unit depression and alcohol use. Patient is previously been on Paxil, Zoloft and Seroquel and is currently on Lexapro and Seroquel. He admits to depression and anxiety. Denies any previous suicide attempts. PMH: Hep C positive, chronic lower back pain ALLERGIES: as per EMR CHEMICAL DEPENDENCY HISTORY: as per HPI FAMILY PSYCHIATRIC/SUBSTANCE USE HISTORY: Patient's father murdered his and committed suicide. SOCIAL HISTORY: Patient was born in [place], and was raised mainly by his uncle after his parents were killed. Patient is currently with his girlfriend has 1 son and girlfriend is with another child. 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 He states that he completed high school. MENTAL STATUS EXAM: General Appearance: Patient appears to be stated age is alert, irritable at times, yet attempts to cooperate. Patient has proved hygiene and grooming. Behavior: Patient is calmly seated without any agitated behavior. Speech: Patient's speech is fluent and nonpressured. Mood/Affect: Patient reports their mood is depressed, affect is congruent and constricted. Suicidality/Homicidality: Patient denies having any suicidal or homicidal ideation intent or plan. Perceptions: Patient denies any auditory or visual hallucinations. Though content/process: There is no evidence of any delusional thought content and thought process is linear and goal-directed. Memory and concentration: AOX3, grossly intact for the purposes of this session. Can spell "WORLD" backwards Judgment and insight: Poor/impulsive. IMPRESSIONS: Major depressive disorder Anxiety disorder unspecified Alcohol use disorder, severe Benzodiazepine abuse PLAN: -Patient is admitted under voluntary status to MHU for stabilization of psychiatric symptoms and safety. Patient signed adult voluntary form and medication consent and is placed in patient's chart. -Medications : Will start patient on Lexapro 5 mg daily for mood/anxiety. I'll start patient on Remeron 15 mg daily at bedtime. Will start Librium scheduled 25 mg 3 times a day for alcohol withdrawal with plan to taper off. -Ativan PRN for CIWA >10 -Geodon when necessary for acute agitation. -Patient was counselled on substance abuse and desired to cut back on use -Patient was informed of the risks, benefits and side effects of the medication and patient verbally consented to taking the medications. Patient signed med consent form and was placed in chart. -NRT - nicotine patch - on board for discharge planning 01/24/19 15:26 PLAN: -Would recommend the following medication changes/additions: We'll restart Lexapro however increased to 15 mg daily for mood/anxiety. We'll also restart Seroquel 100 mg nightly for irritability/insomnia/anxiety. We'll consider adding daytime Seroquel if patient's anxiety continues to be elevated. -Discontinued Restoril at this time. -Continue with CIWA for alcohol withdrawal along with Ativan when necessary -Thiamine and folic acid for vitamin supplementation. -Keppra for seizures. Awaiting neurology consult. -Cannot leave AMA at this time. Patient will need a petition and certification if attempting to leave AMA. -Will continue to follow along to assess if the patient needs to be transferred back to mental health unit after being medically stable. 01/28/19 13:26 01/28/19 14:37 01/28/19 14:47
[2019-01-28] MEDS: ESCITALOPRAM 10 MG TAB PO SCH (16:08)
[2019-01-28] MEDS: SODIUM CHLORIDE 0.9% 1,000 ML IV SCH (16:10)
--- NOTE | 2019-01-28 19:35 | PN ---
PROGRESS NOTE DATE OF SERVICE: 01/28/2019 This 28-year-old gentleman who was admitted with recurrent seizures transferred from psych floor, is being closely monitored in ICU. Apparently the patient had several seizures and the patient does not have any postictal features according to the staff. The patient also requesting Ativan. The patient also most likely has features of DTs as well. CT scan did not show acute abnormality. Patient being closely monitored. PAST MEDICAL HISTORY: Reviewed. REVIEW OF SYSTEMS: Cardiovascular: No angina. No palpitations. Respiration as mentioned earlier. GI: As mentioned earlier. : No dysuria. NERVOUS SYSTEM: No numbness or weakness. CURRENT MEDICATIONS: Reviewed and include: 1. Tylenol 650 q.4h p.r.n. 2. Folic acid 1 mg p.o. daily. 3. Haldol 2.5 q.6h. 4. Heparin 5000 subcu q.8h. 5. Keppra 750 IV b.i.d. 6. Ativan 1 mg p.r.n. 7. Narcan p.r.n. 8. Protonix 40 mg daily. 9. Restoril. 10.Vitamin B1. PHYSICAL EXAMINATION: The patient is alert, oriented x3. Pulse 74, blood pressure 89/64, respiration 20, temperature normal. Pulse ox 98% on room air. HEENT: Conjunctivae normal. Oral mucosa moist. NECK is no jugular venous distention. No carotid bruit. No lymph node enlargement. CARDIOVASCULAR: S1-S2. No S3, no S4. RESPIRATION: Breath sounds diminished in the bases. No rhonchi. No crackles. ABDOMEN is soft, nontender. No mass palpable. LEGS no edema. No swelling. NERVOUS SYSTEM: Higher functions as mentioned earlier. Moves all four extremities. No focal deficits. No signs of cerebellar dysfunction. Power is normal. Reflexes are normal. Lymphatics: No lymph nodes palpable in the neck, axillae or groin. SKIN: No ulcer, no rash and no bleeding. JOINTS: No active deforming arthropathy. LABS: CBC within normal limits. Sodium 136 and creatine kinase is 255. ASSESSMENT: 1. Acute seizures, multiple, possibly alcohol withdrawal seizures, acute delirium tremens. 2. History of seizure disorder. 3. History of ETOH. 4. History of insomnia. 5. History of major depression and anxiety. 6. History of hepatitis C. 7. History of THC. 8. History of continued ongoing nicotine dependence. 9. FULL CODE. RECOMMENDATIONS AND DISCUSSION: Recommend to continue current medications, management and symptomatic treatment. Otherwise, at this time, I recommend continue with current medications and IV fluids. Continue to monitor Psychiatry and as well as Neurology. The prognosis guarded because of multiple complex medical issues. Further recommendations to follow. See orders for details. P.r.n. Ativan may be used. Once again the patient nonicteric and the patient is able to converse normally immediately after the seizures as well. MMODL / IJN: [id number] /
[2019-01-28] MEDS: HALOPERIDOL LACTATE 5 MG/ML 1 ML VIAL IVP PRN (19:49)
[2019-01-28] MEDS: QUEtiapine 100 MG TAB PO SCH (20:07)
[2019-01-29] MEDS: SODIUM CHLORIDE 0.9% 1,000 ML IV SCH ×3 (01:50→21:07)
[2019-01-29 05:45] LABS: Basophils % (A) 0 %; Eosinophils # (A) 0.1 k/uL (0-0.7); Eosinophils % (A) 2 %; HCT 43.7 % (39.0-53.0); HGB 14.1 gm/dL (13.0-17.5); Lymphocytes # (A) 2.8 k/uL (1.0-4.8); Lymphocytes % (A) 42 %; MCH 30.6 pg (25.0-35.0); MCHC 32.3 g/dL (31.0-37.0); MCV 94.8 fL (80.0-100.0); Mean Platelet Volume 5.8; Monocytes # (A) 0.5 k/uL (0-1.0); Monocytes % (A) 7 %; Neutrophils # (A) 3.1 k/uL (1.3-7.7); Neutrophils % (A) 46 %; Platelet Count 304 k/uL (150-450); RBC 4.62 m/uL (4.30-5.90); RDW 11.9 % (11.5-15.5); WBC 6.8 k/uL (3.8-10.6)
[2019-01-29 06:07] LABS: African American GFR (CKD) >90 (>60 ml/min/1.73 sqM); Anion Gap 9 mmol/L; Blood Urea Nitrogen 17 mg/dL (9-20); Calcium 9.2 mg/dL (8.4-10.2); Carbon Dioxide 22 mmol/L (22-30); Chloride 107 mmol/L (98-107); Glucose 86 mg/dL (74-99); Non-African American GFR(CKD) >90 (>60 ml/min/1.73 sqM); Potassium 4.5 mmol/L (3.5-5.1); Sodium 138 mmol/L (137-145)
[2019-01-29] MEDS: THIAMINE 100 MG TAB PO SCH ×2 (06:53→17:01)
[2019-01-29] MEDS: PANTOPRAZOLE 40 MG TABLET PO SCH (06:53)
[2019-01-29] MEDS: LORazepam 1 MG TAB PO PRN ×3 (07:18→11:26)
[2019-01-29] MEDS: LORazepam 2 MG/ML INJ IV PRN ×4 (07:19→13:35)
[2019-01-29] MEDS: ESCITALOPRAM 10 MG TAB PO SCH (09:20)
[2019-01-29] MEDS: levETIRAcetam IV 750 MG in SODIUM CHLORIDE 0.9% 100 ML IVPB SCH ×2 (09:22→21:13)
[2019-01-29] MEDS: HEPARIN SODIUM,PORCINE 5,000 UNIT/ML 1 ML VIAL SQ SCH ×2 (09:22→17:01)
--- NOTE | 2019-01-29 13:02 | P.PN ---
Subjective This is a pleasant 28 years old male with past medical history of hepatitis C, alcoholism, seizure disorder, depression and anxiety, PTSD. Who was admitted to the psychiatric unit on 01/23- for major depression and alcohol use disorder and benzodiazepine abuse However patient developed recurrent seizure and he was transferred to the ICU. When he saw the patient today he was getting EEG and his been monitored. Patient states that he had 3-4 seizure attacks since morning H1 last less than a minute although one of them yesterday lasted 4-5 minutes. Patient states that he can tell when the seizures are coming. While we were in the middle of the encounter patient says that he is going to have a seizure, head turned to his right side and he started shaking in both upper and lower extremity with repeated rhythmic movements, throughout the pleural process which lasted about 30-40 seconds, patient was fully awake, after the seizure-like activities patient was also fully awake and oriented, no tongue biting. No urine or bowel incontinence. Vitas looks stable, as well as labs including CBC and BMP were unremarkable. Liver enzymes were within normal limits last time they were checked. TSH 0.4, creatine kinase to 55. And urinalysis is clear. Urinary tract screen was negative. Patient had CT of the head of the cervical spine which was normal. Chest x-ray from today showing no acute process patient is currently on Ativan w hen necessary and he got 1 dose this morning Review of systems CONSTITUTIONAL: No fever, no malaise, no fatigue. HEENT: No recent visual problems or hearing problems. Denied any sore throat. CARDIOVASCULAR: No orthopnea, PND, no palpitations, no syncope. PULMONARY: No shortness of breath, no cough, no hemoptysis. GASTROINTESTINAL: No diarrhea, no nausea, no vomiting, no abdominal pain. Nor moactive bowel sounds. NEUROLOGICAL: No headaches, no weakness, no numbness. HEMATOLOGICAL: Denies any bleeding or petechiae. GENITOURINARY: Denies any burning micturition, frequency, or urgency. MUSCULOSKELETAL/RHEUMATOLOGICAL: Denies any joint pain, swelling, or any muscle pain. ENDOCRINE: Denies any polyuria or polydipsia. Active Medications Generic Name Dose Route Start Last Admin Trade Name Freq PRN Reason Stop Dose Admin Acetaminophen 650 mg 01/27/19 16:33 Tylenol Tab PO Q4HR PRN Fever and/or Mild Pain Escitalopram Oxalate 15 mg 01/28/19 15:00 01/29/19 09:20 Lexapro PO 15 mg DAILY [facility] Administration Famotidine 20 mg 01/29/19 21:00 Pepcid IV Q12HR [facility] Folic Acid 1 mg 01/28/19 12:00 01/28/19 12:23 Folic Acid PO 1 mg DAILY@1200 [facility] Administration Haloperidol Lactate 2.5 mg 01/27/19 20:16 01/28/19 19:49 Haldol IVP 2.5 mg Q6HR PRN Administration Agitation or Acute Psychosis Heparin Sodium (Porcine) 5,000 unit 01/28/19 00:00 01/29/19 09:22 Heparin SQ Not Given Q8HR [facility] Levetiracetam 750 mg/ Sodium 107.5 mls @ 400 mls/hr 01/27/19 21:00 01/29/19 09:22 Chloride IVPB 400 mls/hr Q12HR [facility] Administration Sodium Chloride 1,000 mls @ 75 mls/hr 01/28/19 14:15 01/29/19 12:35 Saline 0.9% IV Not Given .[id number] [facility] Lorazepam 1 mg 01/27/19 16:37 01/28/19 11:07 Ativan IV 1 mg Q2HR PRN Administration CIWA 8 or 9 Lorazepam 1 mg 01/27/19 16:37 01/27/19 17:44 Ativan IV 1 mg Q1HR PRN Administration CIWA 10 to 15 Lorazepam 1 mg 01/27/19 19:49 01/29/19 11:26 Ativan PO 1 mg Q1H PRN Administration Alcohol Withdrawal Lorazepam 2 mg 01/28/19 11:26 01/29/19 11:41 Ativan IV 2 mg Q10M PRN Administration Seizures Naloxone HCl 0.2 mg 01/27/19 16:33 Narcan IV Q2M PRN Opioid Reversal Pantoprazole Sodium 40 mg 01/28/19 07:30 01/29/19 06:53 Protonix PO 40 mg [id number] [facility] Administration Quetiapine Fumarate 100 mg 01/28/19 21:00 01/28/19 20:07 Seroquel PO 100 mg HS [facility] Administration Thiamine HCl 100 mg 01/28/19 07:30 01/29/19 06:53 Vitamin B-1 PO 100 mg BID-W/MEALS [facility] Administration Objective - Vital Signs Vital signs: Vital Signs Temp 98.4 F 01/29/19 12:00 Pulse 68 01/29/19 12:00 Resp 12 01/29/19 12:00 BP 97/52 01/29/19 12:00 Pulse Ox 97 01/29/19 12:00 Intake & Output 01/28/19 01/29/19 01/29/19 18:59 06:59 18:59 Intake Total 1230 1700 700 Output Total 1300 1200 1150 Balance -70 500 -450 Weight 91.8 kg Intake: IV 790 1200 700 0.9 Normal Saline KVO 90 600 100 Sodium Chloride 0.9% 1, 700 600 500 000 ml @ 100 mls/hr IV . Q10H [facility] Rx#:[id number] levETIRAcetam IV 750 mg 100 In Sodium Chloride 0.9% 100 ml @ 400 mls/hr IVPB Q12HR [facility] Rx#:[id number] Intake, IV Titration 100 Amount levETIRAcetam IV 750 mg 100 In Sodium Chloride 0.9% 100 ml @ 400 mls/hr IVPB Q12HR [facility] Rx#:[id number] Oral 440 400 Output: Urine 1300 1200 1150 Other: Voiding Method Urinal - Labs CBC & Chem 7: 01/29/19 05:11 01/29/19 05:12 Assessment and Plan Assessment: Recurrent seizure, possible pseudoseizure Major depression Alcohol abuse Benzodiazepine abuse Nicotine dependence Hepatitis C History of seizure Plan: This is a pleasant 28 years old male who was transferred from the psychiatric mental health unit to the general medical floor/ICU for recurrent seizure, concerns and for pseudoseizure. Psychiatrist is following the patient as well. Continue with Ativan as needed. Follow-up recommendation from neurologist and intensive care unit services. Continue with CIWA protocol at thiamine Labs and medication were reviewed.. Continue same treatment. Continue with symptomatic treatment. Resume home medication. Monitor lytes and vitals. DVT and GI prophylaxis. Further recommendations of the clinical course of the patient DVT prophylaxis: Subcutaneous heparin GI Prophylaxis: Pepcid Prognosis is guarded
[2019-01-29] MEDS: FOLIC ACID 1 MG TAB PO SCH (13:18)
--- NOTE | 2019-01-29 13:31 | P.PN ---
Subjective Progress Note Date: 01/29/19 Principal diagnosis: Recurrent seizures secondary to alcohol versus benzodiazepine withdrawal seizures. Is a 28-year-old male patient with known history of alcoholism and history of depression who presented to the hospital on 01/24/2019 after being intoxicated work from alcohol claiming that he drank for the past week approximately a fifth of vodka on a daily basis. 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 After he cut himself, he came into the hospital upon the request of his girlfriend. The patient's wound was sutured. He was withdrawing from alcohol and he claimed that he was depressed and suicidal. The patient has been admitted to the mental health unit for depression and alcohol withdrawal. He has been struggling with alcohol abuse for many years and he has been also abusing Klonopin. He was quite anxious. He was having tremors initially along with cold withdrawal. He has had previous withdrawal seizures. He is currently on probation for having several DUIs and he has also served [facility] time. He was having issues with poor appetite, chronic insomnia, inability to concentrate. Denies having any visual or auditory hallucinations. He denied using any other drugs and his urine drug screen was essentially was negative. As the patient was being treated in a psych unit, the patient developed seizure activity yesterday. A team was called and the patient got transferred to the intensive care unit. This morning, as I was finishing viral, the patient had another bout. He felt that this was coming. He felt the aura. He did have some visual changes. Following that, I witnessed this patient jerking initially tonic and then tonic-clonic activity was noted for almost a minutes. Was given given Ativan 2 mg IV push. Note that over the past 24 hours the patient has required Ativan to break his seizures and he has also taken Haldol. He has taken a total of 7 mg of Ativan for episodic seizures yesterday and he did have a total of 3 seizures yesterday [id number] lasting less than a minute tonic-clonic in nature. The patient is also on Keppra the dose of 750 mg every 12 hours IV. No reported aspiration. No respiratory difficulties. No headaches. No neck stiffness. No fever. No chills. CT scan scan of the head and the cervical spine were both negative. Reevaluated today on 01/29/2019, patient seems to be doing fairly well at present, has been receiving Keppra for his seizures, and intermittently has been on Ativan. Presently asymptomatic, denies any seizures in the last 24 hours. Patient is known to have history of multiple medical problems including alcoholism, seizure disorder, hepatitis C, depression, anxiety, and history of psychiatric admission for depression. Neurology consult is pending. Patient is presently in the ICU until cleared to be transferred out of the ICU by neurology. Labs including CBC and basic metabolic profile are normal. Objective - Vital Signs Vital signs: Vital Signs Temp 98.4 F 01/29/19 12:00 Pulse 71 01/29/19 13:00 Resp 15 01/29/19 13:00 BP 120/83 01/29/19 13:00 Pulse Ox 97 01/29/19 13:00 Intake & Output 01/28/19 01/29/19 01/29/19 18:59 06:59 18:59 Intake Total 1230 1700 800 Output Total 1300 1200 1650 Balance -70 500 -850 Weight 91.8 kg Intake: IV 790 1200 800 0.9 Normal Saline KVO 90 600 100 Sodium Chloride 0.9% 1, 700 600 600 000 ml @ 75 mls/hr IV . [id number] [facility] Rx#:[id number] levETIRAcetam IV 750 mg 100 In Sodium Chloride 0.9% 100 ml @ 400 mls/hr IVPB Q12HR [facility] Rx#:[id number] Intake, IV Titration 100 Amount levETIRAcetam IV 750 mg 100 In Sodium Chloride 0.9% 100 ml @ 400 mls/hr IVPB Q12HR [facility] Rx#:[id number] Oral 440 400 Output: Urine 1300 1200 1650 Other: Voiding Method Urinal - Exam Physical Exam: Revealed 28-year-old white male in no distress. Head: Atraumatic, normocephalic. HEENT:[Neck is supple.] [No neck masses.] [No thyromegaly.] [No JVD.] Chest: [Clear throughout, no crackles, no rhonchi, no wheezes.] Cardiac Exam: [Normal S1 and S2, no S3 gallop, no murmur.] Abdomen: [Soft, nontender, no megaly, no rebound, no guarding, normal bowel sounds.] Extremities: [No clubbing, no edema, no cyanosis.] Neurological Exam: [No focal neurologic deficit. Alert oriented 3. Psychiatric: Normal mood affect and normal mental status examination. Skin: No rashes. Lymphatics: No lymphadenopathy.] - Labs CBC & Chem 7: 01/29/19 05:11 01/29/19 05:12 Assessment and Plan Assessment: Impression: Recurrent seizures History of major depression History of alcohol abuse History of benzodiazepine abuse History of hepatitis C Nicotine dependence syndrome Recommendation: Continue Keppra, continue to monitor in the ICU until cleared to be transferred out of the ICU by neurology. Continue alcohol withdrawal protocol continue to monitor electrolytes and daily labs, continue GI and if the circumflex, we'll continue to follow. Time with Patient: Less than 30
--- NOTE | 2019-01-29 13:55 | P.CNNES ---
History of Present Illness Consult date: 01/29/19 Requesting physician: Timothy Stanley Reason for Consult: Seizures. History of Present Illness: Patient is a 28-year-old male, who has long-standing history of alcoholism. Patient states that he drinks a fifth of vodka per day for last 10 years. Patient states that he also has history of concussions in the past, as he has been very active in sports. Patient presents to the hospital on 01/24/2019 after being intoxicated, claiming that he drank a fifth of vodka on a daily basis for the past week. 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 Patient was sutured. He was withdrawing from alcohol and he claimed that he was depressed and suicidal. Patient was admitted to mental health unit for depression and alcohol withdrawal. He was noted to have tremors and obvious alcohol withdrawals. He has previous history of alcohol withdrawal seizures as well. Patient developed seizures while in the psych unit. He was transferred to the ICU. He usually gets an aura of seizure coming and then goes into a seizure. ICU staff witnessed patient having tonic and then tonic-clonic activity, noted for almost a minute. He was given Ativan 2 mg IV push. Patient had multiple seizures. He had required multiple doses of Ativan. Also on Haldol. Patient was started on Keppra 750 mg every 12 hours IV. Neurology was consulted for seizures. Patient had a chest x-ray which is normal. Patient had computed tomography scan of the head on arrival to the ER, in which his CT head was normal. CT of the cervical spine was also normal. Review of Systems Complains of some bodyaches. Denies any tongue bite, or loss of control of urine. Denies problems with vision speech or swallow. Past Medical History Past Medical History: Seizure Disorder Additional Past Medical History / Comment(s): Hepatitis C, alcoholism History of Any Multi-Drug Resistant Organisms: None Reported Past Surgical History: No Surgical Hx Reported Past Anesthesia/Blood Transfusion Reactions: No Reported Reaction Past Psychological History: Anxiety, Depression, PTSD Smoking Status: Current every day smoker Past Alcohol Use History: Abuse, Daily Additional Past Alcohol Use History / Comment(s): Patient is a smoker of pack of cigarettes per day for the past 5 years. He denies any marijuana use. He does have history of alcoholism and has been drinking up to a fifth of liquor per day. - Past Family History Father Additional Family Medical History / Comment(s): Father shot himself when he was around 41 years of age. Mother Additional Family Medical History / Comment(s): Mother was shot and killed by patient's father when she was approximately 40 years of age. Patient has one sister that is healthy. He does not have any children. Medications and Allergies Home Medications Medication Instructions Recorded Confirmed Type Ranitidine HCl [Zantac] 150 mg PO BID 02/02/18 01/27/19 History Fish Oil(Unknown Dose) 1 cap PO DAILY 01/23/19 01/27/19 History Multivitamins, Thera [Multivitamin 1 tab PO DAILY 01/23/19 01/27/19 History (formulary)] Vitamin B Complex 1 cap PO DAILY 01/23/19 01/27/19 History Vitamin E(Unknown Dose) 1 cap PO DAILY 01/23/19 01/27/19 History Allergies Allergy/AdvReac Type Severity Reaction Status Date / Time bee venom protein (honey bee) Allergy Anaphylaxis Verified 01/27/19 16:57 Physical Examination - Vital Signs Vital Signs: Vital Signs Temp Pulse Resp BP Pulse Ox 01/29/19 13:00 71 15 120/83 97 01/29/19 12:00 98.4 F 68 12 97/52 97 01/29/19 11:00 81 10 L 95/62 96 01/29/19 10:00 93 18 114/68 78 L 01/29/19 09:00 91 34 H 92/57 97 01/29/19 08:00 98.1 F 67 16 112/88 96 01/29/19 07:00 73 26 H 91/55 97 01/29/19 06:00 64 16 97/70 96 01/29/19 05:00 63 17 110/69 94 L 01/29/19 04:00 98.3 F 61 17 110/69 95 01/29/19 03:00 83 28 H 110/71 96 01/29/19 02:00 67 11 L 113/68 94 L 01/29/19 01:00 71 17 110/62 95 01/29/19 00:00 98.4 F 71 17 115/67 95 01/28/19 23:00 75 19 124/62 94 L 01/28/19 22:00 80 17 130/66 93 L 01/28/19 21:00 84 22 119/83 93 L 01/28/19 20:00 97.9 F 95 13 130/82 96 01/28/19 19:00 87 14 127/81 96 01/28/19 18:00 79 16 125/83 96 01/28/19 17:00 80 15 106/56 96 01/28/19 16:00 98 F 75 16 105/75 96 01/28/19 15:00 69 15 119/76 96 01/28/19 14:00 91 18 120/71 96 Intake and Output 01/28/19 01/29/19 01/29/19 22:59 06:59 14:59 Intake Total 1520 800 800 Output Total 085 936 4185 Balance 670 50 -850 Intake: IV 800 800 800 0.9 Normal Saline KVO 200 400 100 Sodium Chloride 0.9% 1, 600 400 600 000 ml @ 75 mls/hr IV . [id number] [facility] Rx#:[id number] levETIRAcetam IV 750 mg 100 In Sodium Chloride 0.9% 100 ml @ 400 mls/hr IVPB Q12HR [facility] Rx#:[id number] Intake, IV Titration 100 Amount levETIRAcetam IV 750 mg 100 In Sodium Chloride 0.9% 100 ml @ 400 mls/hr IVPB Q12HR [facility] Rx#:[id number] Oral 620 Output: Urine 831 552 4437 Other: Voiding Method Urinal Weight 91.8 kg On examination patient is a young male, in no distress. He is alert and awake fully oriented to time place and person. Speech and language functions are normal. Cranial nerves are normal. Pupils are round and reactive to light, visual slater are full, face is symmetric and tongue protrudes the midline. Palatal elevation sensation normal. On muscle strength testing there is no pronator drift and the strength is normal in arms and legs distally and proximally. Reflexes are 1+ and plantars downgoing. Sensory touch is equal. No ataxia for [id number] testing. Tone and bulk of muscles normal. No significant tremors of outstretched hands. Results - Laboratory Findings CBC and BMP: 01/29/19 05:11 01/29/19 05:12 Abnormal Lab Findings: Abnormal Labs 1001/28/19 01/28/19 16:04 05:34 05:34 Sodium 136 L POC Glucose (mg/dL) 109 H Creatine Kinase 255 H Assessment and Plan Assessment: * Alcohol withdrawal seizures. * Long-standing history of alcoholism. * Depression. Plan: * Patient will undergo EEG to evaluate for any interictal epileptiform activity. * Continue Keppra 750 mg twice a day for now. * If the EEG is normal, then Keppra could be slowly weaned off as an outpatient. * Continue thiamine, folic acid, multivitamins. Continue to watch for alcohol withdrawals. * Patient was informed of [place] state law of no driving unless seizure free for 6 months, operating dangerous machinery, climbing ladders or unsupervised swimming.
--- NOTE | 2019-01-29 15:01 | P.PN ---
Progress Note - Text Progress Note Date: 01/29/19 Interval History: Patient was seen at the bedside today for psychiatric follow-up. Patient is c ontinuing to have seizures and receiving Ativan, received 1 mg by mouth +2 mg IV this morning. As per nurse taking care patient, states that patient has been med seeking and has had visible seizures and will be due for EEG today along with neurology consult. Patient was agreeable to be seen by keno writer / runner and had his girlfriend at the side of the bed. Patient states that he is continuing to have anxiety throughout the day and continued to have seizures. He states that she would like to have an increase in his Lexapro to help him with his mood as his mood remains depressed. Patient was asking about discharge and when he can go home. Patient claimed that she slept well last night with the Seroquel. He admits to fair energy and appetite. Patient continues to have poor insight into his condition. At this time patient denies any suicidal or homical ideations, intent or plan. Patient denies any auditory, visual hallucinations and denies any paranoia or delusions. Patient denies any side effects from the medications and has been compliant with meds. Mental Status Exam: General Appearance: Patient appears to be stated age is alert, less irritable today, attempts to cooperate. Patient has proved hygiene and grooming. Behavior: Patient is calmly seated without any agitated behavior. Speech: Patient's speech is fluent and nonpressured. Mood/Affect: Patient reports their mood is depressed yet mildly improving, affect is congruent and constricted. Appears to be anxious. Suicidality/Homicidality: Patient denies having any suicidal or homicidal ideation intent or plan. Perceptions: Patient denies any auditory or visual hallucinations. Though content/process: There is no evidence of any delusional thought content and thought process is linear and goal-directed. Memory and concentration: AOX3, grossly intact for the purposes of this session. Judgment and insight: Poor/superficial. Assessment Major depressive disorder Anxiety disorder unspecified Alcohol use disorder, severe, currently in withdrawal. Benzodiazepine abuse, currently in withdrawal. Personality disorder unspecified. Plan: -Would recommend the following medication changes/additions: Lexapro increased to 20 mg daily for mood/anxiety. We'll also increase Seroquel 50mg + 100 mg nightly for irritability/insomnia/anxiety. -Continue with CIWA for alcohol withdrawal along with Ativan when necessary as per primary team. -Thiamine and folic acid for vitamin supplementation. -Keppra for seizures. -Neurology ordered EEG, to be reviewed and interpreted. -Cannot leave AMA at this time. Patient will need a petition and certification if attempting to leave AMA. -Will continue to follow along to assess if the patient needs to be transferred back to mental health unit after being medically stable.
[2019-01-29] MEDS: QUEtiapine 50 MG TAB PO SCH (15:14)
--- NOTE | 2019-01-29 17:58 | EEG ---
ELECTROENCEPHALOGRAM REPORT DATE OF SERVICE: 01/29/2019. PREAMBLE: This is a 28-year-old male with a history of alcoholism who came with recurrent seizure, possible alcohol withdrawal. Rule out any epileptiform activity. Patient is on CIWY protocol. EEG FINDINGS: Routine 21-channel awake digital EEG recording was accomplished utilizing the 10/20 international system with bipolar and referential montages. The background consists of well-developed, well-regulated, moderate amplitude activity in mixed frequency of 9 to 10 Hz alpha with some low-voltage fast frequency beta activity. Background is posterior-dominant and reactive to eye opening and closing. Different stages of sleep were not seen. Photic driving response was seen. No focal or generalized epileptiform activity was seen. IMPRESSION: This is a normal awake EEG. The presence of slightly excessive low-voltage fast frequency beta is suggestive of medication effect. No epileptiform activity was seen. MMODL / IJN: [id number] /
[2019-01-29] MEDS: QUEtiapine 100 MG TAB PO SCH (21:08)
[2019-01-29] MEDS: FAMOTIDINE 20 MG/2 ML VIAL IV SCH (21:08)
[2019-01-30] MEDS: HEPARIN SODIUM,PORCINE 5,000 UNIT/ML 1 ML VIAL SQ SCH ×4 (00:27→23:41)
[2019-01-30 06:13] LABS: HCT 42.7 % (39.0-53.0); HGB 14.4 gm/dL (13.0-17.5); MCH 31.5 pg (25.0-35.0); MCHC 33.6 g/dL (31.0-37.0); MCV 93.8 fL (80.0-100.0); Mean Platelet Volume 5.8; Platelet Count 286 k/uL (150-450); RBC 4.55 m/uL (4.30-5.90); RDW 11.9 % (11.5-15.5); WBC 6.5 k/uL (3.8-10.6)
[2019-01-30 06:26] LABS: African American GFR (CKD) >90 (>60 ml/min/1.73 sqM); Anion Gap 8 mmol/L; Blood Urea Nitrogen 17 mg/dL (9-20); Carbon Dioxide 22 mmol/L (22-30); Chloride 108 mmol/L (98-107); Glucose 82 mg/dL (74-99); Non-African American GFR(CKD) >90 (>60 ml/min/1.73 sqM); Potassium 4.4 mmol/L (3.5-5.1); Sodium 138 mmol/L (137-145)
[2019-01-30] MEDS: THIAMINE 100 MG TAB PO SCH ×2 (07:41→17:02)
[2019-01-30] MEDS: PANTOPRAZOLE 40 MG TABLET PO SCH (07:41)
[2019-01-30] MEDS: ESCITALOPRAM 20 MG TAB PO SCH (08:12)
[2019-01-30] MEDS: FAMOTIDINE 20 MG/2 ML VIAL IV SCH (08:12)
[2019-01-30] MEDS: QUEtiapine 50 MG TAB PO SCH (08:12)
[2019-01-30] MEDS: levETIRAcetam IV 750 MG in SODIUM CHLORIDE 0.9% 100 ML IVPB SCH (08:12)
[2019-01-30] MEDS: LORazepam 2 MG/ML INJ IV PRN ×5 (09:29→21:32)
[2019-01-30] MEDS ORDERED: levETIRAcetam IV 250 MG in SODIUM CHLORIDE 0.9% 100 ML IVPB STA (09:51)
[2019-01-30] MEDS: SODIUM CHLORIDE 0.9% 1,000 ML IV SCH ×2 (10:30→23:41)
--- NOTE | 2019-01-30 11:21 | P.PN ---
Subjective Progress Note Date: 01/30/19 Principal diagnosis: Recurrent seizures secondary to alcohol versus benzodiazepine withdrawal seizures. Is a 28-year-old male patient with known history of alcoholism and history of depression who presented to the hospital on 01/24/2019 after being intoxicated work from alcohol claiming that he drank for the past week approximately a fifth of vodka on a daily basis. 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 After he cut himself, he came into the hospital upon the request of his girlfriend. The patient's wound was sutured. He was withdrawing from alcohol and he claimed that he was depressed and suicidal. The patient has been admitted to the mental health unit for depression and alcohol withdrawal. He has been struggling with alcohol abuse for many years and he has been also abusing Klonopin. He was quite anxious. He was having tremors initially along with cold withdrawal. He has had previous withdrawal seizures. He is currently on probation for having several DUIs and he has also served [facility] time. He was having issues with poor appetite, chronic insomnia, inability to concentrate. Denies having any visual or auditory hallucinations. He denied using any other drugs and his urine drug screen was essentially was negative. As the patient was being treated in a psych unit, the patient developed seizure activity yesterday. A team was called and the patient got transferred to the intensive care unit. This morning, as I was finishing viral, the patient had another bout. He felt that this was coming. He felt the aura. He did have some visual changes. Following that, I witnessed this patient jerking initially tonic and then tonic-clonic activity was noted for almost a minutes. Was given given Ativan 2 mg IV push. Note that over the past 24 hours the patient has required Ativan to break his seizures and he has also taken Haldol. He has taken a total of 7 mg of Ativan for episodic seizures yesterday and he did have a total of 3 seizures yesterday [id number] lasting less than a minute tonic-clonic in nature. The patient is also on Keppra the dose of 750 mg every 12 hours IV. No reported aspiration. No respiratory difficulties. No headaches. No neck stiffness. No fever. No chills. CT scan scan of the head and the cervical spine were both negative. Reevaluated today on 01/29/2019, patient seems to be doing fairly well at present, has been receiving Keppra for his seizures, and intermittently has been on Ativan. Presently asymptomatic, denies any seizures in the last 24 hours. Patient is known to have history of multiple medical problems including alcoholism, seizure disorder, hepatitis C, depression, anxiety, and history of psychiatric admission for depression. Neurology consult is pending. Patient is presently in the ICU until cleared to be transferred out of the ICU by neurology. Labs including CBC and basic metabolic profile are normal. Patient was reevaluated today on 01/30/2019, according to him and the nurse taking care of him, patient had another brief seizure disorder, responded to Ativan. Presently the patient is doing well, asymptomatic, continues to be followed by psychiatry and by neurology. His medications are basically about the same, psychiatry recommended increasing Lexapro to 20 mg daily and increasin g Seroquel to 150 mg daily. And advised to continue the alcohol withdrawal protocol. Neurology is considering alcohol withdrawal seizure, and we'll review his EEG for any interictal epileptiform activity. In the meantime I recommended we continue Keppra 750 twice a day for now. Also recommended that we continue the alcohol withdrawal protocol. Labs today were noted to be all normal. Objective - Vital Signs Vital signs: Vital Signs Temp 97.5 F L 01/30/19 08:00 Pulse 144 H 01/30/19 10:00 Resp 22 01/30/19 10:00 BP 111/67 01/30/19 10:00 Pulse Ox 96 01/30/19 10:00 Intake & Output 01/29/19 01/30/19 01/30/19 18:59 06:59 18:59 Intake Total 1300 1025 500 Output Total 2250 1125 525 Balance -950 -100 -25 Weight 93.4 kg Intake: IV 1300 1025 500 0.9 Normal Saline KVO 100 Sodium Chloride 0.9% 1, 1100 925 300 000 ml @ 75 mls/hr IV . [id number] [facility] Rx#:[id number] levETIRAcetam IV 250 mg 100 In Sodium Chloride 0.9% 100 ml @ 400 mls/hr IVPB ONCE [facility] Rx#:[id number] levETIRAcetam IV 750 mg 100 100 100 In Sodium Chloride 0.9% 100 ml @ 400 mls/hr IVPB Q12HR [facility] Rx#:[id number] Output: Urine 2250 1125 525 Other: Voiding Method Urinal Urinal # Bowel Movements 1 - Exam Physical Exam: Revealed 28-year-old white male in no distress. Head: Atraumatic, normocephalic. HEENT:[Neck is supple.] [No neck masses.] [No thyromegaly.] [No JVD.] Chest: [Clear throughout, no crackles, no rhonchi, no wheezes.] Cardiac Exam: [Normal S1 and S2, no S3 gallop, no murmur.] Abdomen: [Soft, nontender, no megaly, no rebound, no guarding, normal bowel ila nds.] Extremities: [No clubbing, no edema, no cyanosis.] Neurological Exam: [No focal neurologic deficit. Alert oriented 3. Psychiatric: Normal mood affect and normal mental status examination. Skin: No rashes. Lymphatics: No lymphadenopathy.] - Labs CBC & Chem 7: 01/30/19 05:34 01/30/19 05:36 Labs: Abnormal Lab Results - Last 24 Hours (Table) 01/30/19 Range/Units 05:36 Chloride 108 H (98-107) mmol/L Assessment and Plan Assessment: Impression: Recurrent seizures , could be related to alcohol withdrawal or benzodiazepine withdrawal. History of major depression History of alcohol abuse History of benzodiazepine abuse History of hepatitis C Nicotine dependence syndrome Recommendation: Continue Keppra, continue to monitor in the ICU Continue alcohol withdrawal protocol. Continue to follow the recommendations of neurology on the case regarding his seizures Continue to follow the recommendations of psychiatry regarding his depression. Once cleared by both to be transferred out of the ICU, will transfer the patient out of the ICU at that point. We'll continue to follow as long as he is in the ICU Time with Patient: Less than 30
[2019-01-30] MEDS: LORazepam 1 MG TAB PO PRN (11:55)
[2019-01-30] MEDS: FOLIC ACID 1 MG TAB PO SCH (12:02)
--- NOTE | 2019-01-30 12:30 | P.PN ---
Subjective Progress Note Date: 01/30/19 Patient is laying comfortably in the bed. Patient had a seizure earlier, for which he received Ativan 2 mg. Patient states that he is going to have a seizure again, and wanted to milligrams of Ativan. We have increased his dose of Keppra to 1000 g twice a day. 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 Giving me suggestions. Shortly after I have left, the nurse reported that patient had a seizure at 10 AM and then at 10:15 AM. He was given 2 mg of Ativan. Patient had just completed the extra 250 mg of IV Keppra to make it 1000 mg for this morning. The primary doctor and the nurse witnessed the seizures. Patient before seizure, turned to the side, and started tremoring of the body. It was not tonic-clonic seizure. 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 Patient was trying to gain attention during the seizure. No post ictal confusion. No tongue bite. No loss of control of urine. Patient's EEG was normal. Objective - Vital Signs Vital signs: Vital Signs Temp 98.4 F 01/30/19 12:00 Pulse 76 01/30/19 12:00 Resp 22 01/30/19 12:00 BP 124/81 01/30/19 12:00 Pulse Ox 96 01/30/19 12:00 Intake & Output 01/29/19 01/30/19 01/30/19 18:59 06:59 18:59 Intake Total 1300 1025 650 Output Total 2250 1125 525 Balance -950 -100 125 Weight 93.4 kg Intake: IV 1300 1025 650 0.9 Normal Saline KVO 100 Sodium Chloride 0.9% 1, 1100 925 450 000 ml @ 75 mls/hr IV . [id number] [facility] Rx#:[id number] levETIRAcetam IV 250 mg 100 In Sodium Chloride 0.9% 100 ml @ 400 mls/hr IVPB ONCE STA Rx#:[id number] levETIRAcetam IV 750 mg 100 100 100 In Sodium Chloride 0.9% 100 ml @ 400 mls/hr IVPB Q12HR [facility] Rx#:[id number] Output: Urine 2250 1125 525 Other: Voiding Method Urinal Urinal # Bowel Movements 1 1 - Exam Mental status, speech and language functions are normal. Cranial nerves are normal. Muscle strength normal. Reflexes 2+ and plantars downgoing. No ataxia. Tone and bulk of muscles normal. Patient does not appear tremulous, or signs of obvious withdrawal. - Labs CBC & Chem 7: 01/30/19 05:34 01/30/19 05:36 Labs: Abnormal Lab Results - Last 24 Hours (Table) 01/30/19 Range/Units 05:36 Chloride 108 H (98-107) mmol/L Assessment and Plan Assessment: * Alcohol withdrawal seizures. 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 * Long-standing history of alcoholism. * Depression. Plan: * EEG was normal, with no interictal epileptiform activity. * Continue Keppra 1000 mg twice a day for now. * Psychiatry to follow for probable psychogenic nonepileptic seizures. * Continue thiamine, folic acid, multivitamins. * No signs of alcohol withdrawal at this time. Discussed with primary attending, and agree these appears nonepileptic seizures. Neurologically clear for transfer to psychiatric unit. * Patient was informed of [place] state law of no driving unless seizure free for 6 months, operating dangerous machinery, climbing ladders or unsupervised swimming.
--- NOTE | 2019-01-30 14:37 | P.PN ---
Progress Note - Text Progress Note Date: 01/30/19 Interval History: Patient was seen at the bedside today for psychiatric follow-up. Patient is c ontinuing to have seizures and receiving Ativan IV and by mouth. Patient was noted by nurse and staff that he was having seizures this morning. Patient did have an EEG which was performed and showed no seizure activity. Patient was agreeable to be seen by typewriters functional tester this afternoon. Patient states that his anxiety has improved and he denies any other problems or complaints. Patient was asking about discharge and when he can go home or if he is going back to the mental health unit. Patient claimed that he had disrupted sleep last night and was requesting an increase in his Seroquel. Patient was informed about the amount of Ativan that he was receiving and the concern for pseudoseizures, patient appeared to be indifferent about this and wanted to know more answers about what may be causing this seizure activity. However did claim that he was going to try not to ask for any more Ativan. He admits to fair energy and appetite. At this time patient denies any suicidal or homical ideations, intent or plan. Patient denies any auditory, visual hallucinations and denies any paranoia or delusions. Patient denies any side effects from the medications and has been compliant with meds. Mental Status Exam: General Appearance: Patient appears to be stated age is alert, attempts to cooperate. Patient has proved hygiene and grooming. Behavior: Patient is calmly seated without any agitated behavior. Speech: Patient's speech is fluent and nonpressured. Mood/Affect: Patient reports their mood is improved, affect is congruent and constricted. Suicidality/Homicidality: Patient denies having any suicidal or homicidal ideation intent or plan. Perceptions: Patient denies any auditory or visual hallucinations. Though content/process: There is no evidence of any delusional thought content and thought process is linear and goal-directed. Memory and concentration: AOX3, grossly intact for the purposes of this session. Judgment and insight: Poor/superficial. Assessment Major depressive disorder Anxiety disorder unspecified Alcohol use disorder, severe, currently in withdrawal. Benzodiazepine abuse, currently in withdrawal. Personality disorder unspecified. Plan: -Would recommend the following medication changes/additions: Lexapro 20 mg daily for mood/anxiety. We'll also increase Seroquel 50mg + 150 mg nightly for irritability/insomnia/anxiety. -Continue with CIWA for alcohol withdrawal along with Ativan when necessary as per primary team. Would suggest cutting down on Ativan dose as patient is out of withdrawal window. -Thiamine and folic acid for vitamin supplementation. -Keppra for seizures, increased by neurology. -EEG showed no seizure activity however this may be suppressed by Ativan. Neurology considering potential transfer for continuous EEG monitoring. -Cannot leave AMA at this time. Patient will need a petition and certification if attempting to leave AMA. -Patient is still NOT medically stable and continuing to have seizures and receiving IV Ativan. Will continue to follow along to assess if the patient needs to be transferred back to mental health unit vs. transferred to for continuous EEG monitoring.
--- NOTE | 2019-01-30 17:50 | P.PN ---
Subjective This is a pleasant 28 years old male with past medical history of hepatitis C, alcoholism, seizure disorder, depression and anxiety, PTSD. Who was admitted to the psychiatric unit on 01/23- for major depression and alcohol use disorder and benzodiazepine abuse However patient developed recurrent seizure and he was transferred to the ICU. When he saw the patient today he was getting EEG and his been monitored. Patient states that he had 3-4 seizure attacks since morning H1 last less than a minute although one of them yesterday lasted 4-5 minutes. Patient states that he can tell when the seizures are coming. While we were in the middle of the encounter patient says that he is going to have a seizure, head turned to his right side and he started shaking in both upper and lower extremity with repeated rhythmic movements, throughout the pleural process which lasted about 30-40 seconds, patient was fully awake, after the seizure-like activities patient was also fully awake and oriented, no tongue biting. No urine or bowel incontinence. Vitas looks stable, as well as labs including CBC and BMP were unremarkable. Liver enzymes were within normal limits last time they were checked. TSH 0.4, creatine kinase to 55. And urinalysis is clear. Urinary tract screen was negative. Patient had CT of the head of the cervical spine which was normal. Chest x-ray from today showing no acute process patient is currently on Ativan w hen necessary and he got 1 dose this morning 01/30/2019 pt today is awake and alert in the ICU , pt denies chest pain or dyspnea, no weakness or numbness or headache, pt is complaining from recurrent seizure like activity but he remains awake during and after these seizure like episodes. his EEG is normal , i discussed the case with the neurologist program paraprofessional, pt most likely has psychotic non epileptic seizure or pseudoseizure , pt is recommended to stay on keppra for now, medically he is stable for transfer to psych mental health unit , however psychiatrist wants to keep monitoring pt in the icu for now . as per psych recommendation , pt can not leave ama , and if so then he will need to be petition , sitter is requested at bed side discussed with staff. Review of systems CONSTITUTIONAL: No fever, no malaise, no fatigue. HEENT: No recent visual problems or hearing problems. Denied any sore throat. CARDIOVASCULAR: No orthopnea, PND, no palpitations, no syncope. PULMONARY: No shortness of breath, no cough, no hemoptysis. GASTROINTESTINAL: No diarrhea, no nausea, no vomiting, no abdominal pain. Normoactive bowel sounds. NEUROLOGICAL: No headaches, no weakness, no numbness. HEMATOLOGICAL: Denies any bleeding or petechiae. GENITOURINARY: Denies any burning micturition, frequency, or urgency. MUSCULOSKELETAL/RHEUMATOLOGICAL: Denies any joint pain, swelling, or any muscle pain. ENDOCRINE: Denies any polyuria or polydipsia. Active Medications Generic Name Dose Route Start Last Admin Trade Name Freq PRN Reason Stop Dose Admin Acetaminophen 650 mg 01/27/19 16:33 Tylenol Tab PO Q4HR PRN Fever and/or Mild Pain Escitalopram Oxalate 20 mg 01/30/19 09:00 01/30/19 08:12 Lexapro PO 20 mg DAILY [facility] Administration Folic Acid 1 mg 01/28/19 12:00 01/30/19 12:02 Folic Acid PO 1 mg DAILY@1200 [facility] Administration Haloperidol Lactate 2.5 mg 01/27/19 20:16 01/28/19 19:49 Haldol IVP 2.5 mg Q6HR PRN Administration Agitation or Acute Psychosis Heparin Sodium (Porcine) 5,000 unit 01/28/19 00:00 01/30/19 17:02 Heparin SQ 5,000 unit Q8HR [facility] Administration Sodium Chloride 1,000 mls @ 75 mls/hr 01/28/19 14:15 01/30/19 10:30 Saline 0.9% IV 75 mls/hr .[id number] [facility] Administration Levetiracetam 1,000 mg/ Sodium 110 mls @ 400 mls/hr 01/30/19 21:00 Chloride IVPB Q12HR [facility] Levetiracetam 1,000 mg/ IV 100 mls @ 400 mls/hr 01/30/19 21:00 Solution IVPB Q12HR [facility] Lorazepam 1 mg 01/27/19 16:37 01/28/19 11:07 Ativan IV 1 mg Q2HR PRN Administration CIWA 8 or 9 Lorazepam 1 mg 01/27/19 16:37 01/30/19 11:53 Ativan IV 1 mg Q1HR PRN Administration CIWA 10 to 15 Lorazepam 1 mg 01/27/19 19:49 01/30/19 11:55 Ativan PO 1 mg Q1H PRN Administration Alcohol Withdrawal Naloxone HCl 0.2 mg 01/27/19 16:33 Narcan IV Q2M PRN Opioid Reversal Pantoprazole Sodium 40 mg 01/28/19 07:30 01/30/19 07:41 Protonix PO 40 mg [id number] [facility] Administration Quetiapine Fumarate 50 mg 01/29/19 14:15 01/30/19 08:12 Seroquel PO 50 mg DAILY [facility] Administration Quetiapine Fumarate 150 mg 01/30/19 21:00 Seroquel PO HS [facility] Thiamine HCl 100 mg 01/28/19 07:30 01/30/19 17:02 Vitamin B-1 PO 100 mg BID-W/MEALS [facility] Administration Objective - Vital Signs Vital signs: Vital Signs Temp 98.4 F 01/30/19 12:00 Pulse 84 01/30/19 17:00 Resp 10 L 01/30/19 17:00 BP 133/95 01/30/19 17:00 Pulse Ox 96 01/30/19 17:00 Intake & Output 01/29/19 01/30/19 01/30/19 18:59 06:59 18:59 Intake Total 1300 1025 1025 Output Total 2250 1125 525 Balance -950 -100 500 Weight 93.4 kg Intake: IV 1300 1025 1025 0.9 Normal Saline KVO 100 Sodium Chloride 0.9% 1, 1100 925 825 000 ml @ 75 mls/hr IV . [id number] [facility] Rx#:[id number] levETIRAcetam IV 250 mg 100 In Sodium Chloride 0.9% 100 ml @ 400 mls/hr IVPB ONCE STA Rx#:[id number] levETIRAcetam IV 750 mg 100 100 100 In Sodium Chloride 0.9% 100 ml @ 400 mls/hr IVPB Q12HR [facility] Rx#:[id number] Output: Urine 2250 1125 525 Other: Voiding Method Urinal Urinal # Voids 1 # Bowel Movements 1 1 - Exam GENERAL: The patient is alert and oriented x3, not in any acute distress. Well developed, well nourished. HEENT: Pupils are round and equally reacting to light. EOMI. No scleral icterus. No conjunctival pallor. Normocephalic, atraumatic. No pharyngeal erythema. No thyromegaly. CARDIOVASCULAR: S1 and S2 present. No murmurs, rubs, or gallops. PULMONARY: Chest is clear to auscultation, no wheezing or crackles. ABDOMEN: Soft, nontender, nondistended, normoactive bowel sounds. No palpable organomegaly. MUSCULOSKELETAL: No joint swelling or deformity. EXTREMITIES: No cyanosis, clubbing, or pedal edema. NEUROLOGICAL: Gross neurological examination did not reveal any focal deficits. SKIN: No rashes. - Labs CBC & Chem 7: 01/30/19 05:34 01/30/19 05:36 Labs: Abnormal Lab Results - Last 24 Hours (Table) 01/30/19 Range/Units 05:36 Chloride 108 H (98-107) mmol/L Assessment and Plan Assessment: Recurrent seizure, mostly pseudoseizure for normal EEG Major depression Alcohol abuse Benzodiazepine abuse Nicotine dependence Hepatitis C History of seizure Plan: This is a pleasant 28 years old male who was transferred from the psychiatric mental health unit to the general medical floor/ICU for recurrent seizure, concerns and for pseudoseizure. Psychiatrist is following the patient as well. Continue with Ativan as needed. Follow-up recommendation from neurologist and intensive care unit services. Continue with CIWA protocol at thiamine Labs and medication were reviewed.. Continue same treatment. Continue with symptomatic treatment. Resume home medication. Monitor lytes and vitals. DVT and GI prophylaxis. Further recommendations of the clinical course of the patient DVT prophylaxis: Subcutaneous heparin GI Prophylaxis: Pepcid Prognosis is guarded PT is medically stable to be transferred to mental health unit.
[2019-01-30] MEDS ORDERED: levETIRAcetam IV 1,000 MG in SODIUM CHLORIDE 0.9% 100 ML IVPB SCH (21:00)
[2019-01-30] MEDS ORDERED: QUEtiapine 50 MG TAB PO SCH (21:00)
[2019-01-30] MEDS: levETIRAcetam IV 1,000 MG in SALINE 1 100ML.BAG IVPB SCH (21:36)
[2019-01-31 05:23] LABS: HCT 43.8 % (39.0-53.0); HGB 14.6 gm/dL (13.0-17.5); MCHC 33.4 g/dL (31.0-37.0); MCV 92.7 fL (80.0-100.0); Mean Platelet Volume 5.4; Platelet Count 294 k/uL (150-450); RBC 4.72 m/uL (4.30-5.90); RDW 11.8 % (11.5-15.5); WBC 8.7 k/uL (3.8-10.6)
[2019-01-31 05:34] LABS: African American GFR (CKD) >90 (>60 ml/min/1.73 sqM); Anion Gap 10 mmol/L; Blood Urea Nitrogen 17 mg/dL (9-20); Calcium 9.8 mg/dL (8.4-10.2); Carbon Dioxide 26 mmol/L (22-30); Chloride 104 mmol/L (98-107); Glucose 83 mg/dL (74-99); Non-African American GFR(CKD) >90 (>60 ml/min/1.73 sqM); Potassium 4.4 mmol/L (3.5-5.1); Sodium 140 mmol/L (137-145)
[2019-01-31] MEDS: THIAMINE 100 MG TAB PO SCH (08:55)
[2019-01-31] MEDS: PANTOPRAZOLE 40 MG TABLET PO SCH (08:55)
[2019-01-31] MEDS: QUEtiapine 50 MG TAB PO SCH (08:55)
[2019-01-31] MEDS: levETIRAcetam IV 1,000 MG in SALINE 1 100ML.BAG IVPB SCH (08:55)
[2019-01-31] MEDS: ESCITALOPRAM 20 MG TAB PO SCH (08:55)
[2019-01-31] MEDS: HEPARIN SODIUM,PORCINE 5,000 UNIT/ML 1 ML VIAL SQ SCH (08:56)
[2019-01-31 09:04] VITALS: TEMP 97.8
[2019-01-31 12:52] VITALS: BP 107/80; PULSE 78; RESP 16
--- NOTE | 2019-01-31 13:03 | P.PN ---
Subjective Progress Note Date: 01/31/19 Patient is laying comfortably in the bed. No seizures reported since last 24 hours. Patient wants to go home but he has been petitioned. Patient's EEG was normal. Objective - Vital Signs Vital signs: Vital Signs Temp 97.8 F 01/31/19 12:00 Pulse 78 01/31/19 12:00 Resp 16 01/31/19 12:00 BP 107/80 01/31/19 12:00 Pulse Ox 95 01/31/19 12:00 Intake & Output 01/30/19 01/31/19 01/31/19 18:59 06:59 18:59 Intake Total 1025 100 Output Total 525 500 0 Balance 500 -400 0 Weight 88 kg Intake: IV 1025 100 Sodium Chloride 0.9% 1, 825 000 ml @ 75 mls/hr IV . [id number] [facility] Rx#:[id number] levETIRAcetam IV 250 mg 100 100 In Sodium Chloride 0.9% 100 ml @ 400 mls/hr IVPB ONCE STA Rx#:[id number] levETIRAcetam IV 750 mg 100 In Sodium Chloride 0.9% 100 ml @ 400 mls/hr IVPB Q12HR [facility] Rx#:[id number] Output: Urine 525 500 0 Other: Voiding Method Urinal Urinal Toilet Urinal # Voids 1 0 1 # Bowel Movements 1 - Exam Mental status, speech and language functions are normal. Cranial nerves are normal. Muscle strength normal. - Labs CBC & Chem 7: 01/31/19 04:33 01/31/19 04:33 Assessment and Plan Assessment: * Alcohol withdrawal seizures. Patient also has developed Psychogenic nonepileptic seizures. * Long-standing history of alcoholism. * Depression. Plan: * EEG was normal, with no interictal epileptiform activity. * Continue Keppra 1000 mg twice a day for now. May slowly wean off as an outpatient. * Psychiatry to follow for probable psychogenic nonepileptic seizures. * Neurologically clear for discharge/transfer to psychiatric unit.
[2019-01-31] MEDS: SODIUM CHLORIDE 0.9% 1,000 ML IV SCH (13:29)
[2019-01-31] MEDS: FOLIC ACID 1 MG TAB PO SCH (13:29)
--- NOTE | 2019-01-31 14:30 | P.PN ---
Progress Note - Text Progress Note Date: 01/31/19 Interval History: Patient was seen at the bedside today for psychiatric follow-up. Patient rece chaya Ativan yesterday for anxiety and also as patient was getting somewhat agitated as he wanted to leave the hospital AMA. Patient was then petitioned and Certed until he is reevaluated. Patient was noted by nurse, that he was more cooperative this morning and agreeable to stay until medically and psychiatrically cleared. Patient also was noted by nurses the patient seizures yesterday subsided without Ativan. Patient was agreeable to be seen by chief writer this afternoon. Patient states that his anxiety is still waxing and waning however is improving in general and patient claims that his mood has improved and is denying any depressive symptoms at this time. Patient spoke about how he wants to stay sober from alcohol and other drugs and claimed that he was the most sober for the longest period of time when he was on Suboxone prescribed by his outpatient primary care provider. He states that he plans to follow up with him to see if he can be placed back on Suboxone. He also claimed he has motivation as he has a child on the way and needs to stay sober and continue to work and provide for his family. Patient claimed that he had improved sleep last night and does not need an increase in his Seroquel. I discussed in great detail about the risks and problems associated with benzodiazepine abuse and alcohol along with other substances and patient agreed and wanted to [facility] and maintain his sobriety. He admits to fair energy and appetite. At this time patient denies any suicidal or homical ideations, intent or plan. Patient denies any auditory, visual hallucinations and denies any paranoia or delusions. Patient denies any side effects from the medications and has been compliant with meds. Mental Status Exam: General Appearance: Patient appears to be stated age is alert, attempts to cooperate. Patient has improved hygiene and grooming. Behavior: Patient is calmly seated without any agitated behavior. Speech: Patient's speech is fluent and nonpressured. Mood/Affect: Patient reports their mood is "better", affect is congruent and constricted. Suicidality/Homicidality: Patient denies having any suicidal or homicidal ideation intent or plan. Perceptions: Patient denies any auditory or visual hallucinations. Though content/process: There is no evidence of any delusional thought content and thought process is linear and goal-directed. Memory and concentration: AOX3, grossly intact for the purposes of this session. Judgment and insight: Superficial, improving Assessment Major depressive disorder Anxiety disorder unspecified Alcohol use disorder, severe Benzodiazepine abuse Personality disorder unspecified, likely cluster B Plan: -Would recommend the following medication changes/additions: can continue with Lexapro 20 mg daily for mood/anxiety. We'll continue with Seroquel 50mg + 150 mg nightly for irritability/insomnia/anxiety. -Thiamine and folic acid for vitamin supplementation. -Keppra for seizures, as per neurology. -Patient at this time has improved yet still appears to be superficial insight into his substance use however his depressive symptoms and suicidal ideations and acute risk to self has subsided and patient at this time will be psychiatrically cleared and when medically appropriate/cleared can be discharged back to the [facility] where he came from. Patient is to follow-up with his primary care physician and also his psychiatric outpatient provider. -Discussed with patient in great detail about the risks and consequences of abusing alcohol benzodiazepines and other substances and patient was superficially motivated and states that she will go back [facility] to work on his sobriety and follow-up with his outpatient appointments. We also discussed the possibility of medication to assist with alcohol cravings including naltrexone however patient would not be a candidate at this time as he is planning on going back on Suboxone. Patient was also encouraged to go to NA/AA meetings in the community. cattle care worker to give patient references/resources for this.
--- NOTE | 2019-01-31 19:59 | P.DS ---
Providers Date of admission: 01/27/19 15:44 Attending physician: Timothy Stanley Consults: 01/27/19 16:33 Consult Physician Stat Consulting Provider: Katy Avila Consult Reason/Comments: icu rx Do you want consulting provider notified?: Yes 01/27/19 18:25 Consult Physician Routine Consulting Provider: Julio Torres Consult Reason/Comments: Seziure Do you want consulting provider notified?: Yes, Notify in am 01/27/19 18:29 Consult Physician Routine Consulting Provider: Ferdinand Gomez Consult Reason/Comments: seizure Do you want consulting provider notified?: Yes, Notify in am Primary care physician: Stated None Hospital Course: Diagnoses: -Recurrent seizure, 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 Also possible for psychogenic nonepileptic seizure. It might have a component of alcohol withdrawal seizure but less likely. EEG is within normal -Major depression. cleared by psych for discharge. -Alcohol abuse, improved , pt is been discharge on simple benzodiazepine taper -Benzodiazepine abuse -Nicotine dependence -Hepatitis C -History of seizure Hospital course: This is a pleasant 28 years old male with past medical history of hepatitis C, alcoholism, seizure disorder, depression and anxiety, PTSD. Who was admitted to the psychiatric unit on 01/23- for major depression and alcohol use disorder and benzodiazepine abuse. However patient developed recurrent seizure and he was transferred to the ICU. The ICU patient continued to have recurrent seizure, sever once during the day, during the seizure which was witnessed patient remains fully awake and he has no postictal confusion, no tongue biting, no urine or bowel incontinence. Also underwent EEG which was normal as per my discussion with the neurologist, of note patient had seizure witnessed by me while he was undergoing EEG yesterday which is felt it is EEG is within normal . Discussed the case with the neurologist, most likely patient have pseudoseizure or psychogenic nonepileptic seizure, patient is to continue on Keppra 1000 twice a day with a recommendation for him to be transferred to the mental health unit to be treated for his psych illnesses. however psychiatrist came to day and cleared pt for discharge home, dc bed side sitter. Also patient has been evaluated by pulmonary/critical care team. pt was cleared for discharge by all consultants including psych and neuro teams Discussed the case with the patient in details and he agreeable with the plan for him to go to the psychiatric unit when bed is available. Patient currently denies chest pain or dyspnea. No change in urine or bowel habits. No fever. He is fully awake and oriented Problems and management plan were discussed with the patient and he verbalized understanding and acceptance Patient was found stable and can be discharged home however he needs follow-up as an outpatient. Patient was instructed to follow up with PCP within one week and patient agrees. also pt was instructed to f/u with psych and neuro as outpt and he agrees. pt wants to make his own appointments Gen: patient is a AAOx3, no distress CVS: S1-S2, RRR, no murmur Lungs: B/L CTA, no wheezing Abdomen: soft, no distention, no tenderness, positive bowel sounds Extremity: no leg edema or induration Time spent more than 35 minutes Plan - Discharge Summary New Discharge Prescriptions: New Folic Acid 1 mg PO DAILY@1200 #30 tab levETIRAcetam [Keppra] 1,000 mg PO Q12HR #120 tab Escitalopram [Lexapro] 20 mg PO DAILY #30 tab QUEtiapine [SEROquel] 150 mg PO HS #90 tab QUEtiapine [SEROquel] 50 mg PO DAILY #30 tab Thiamine [Vitamin B-1] 100 mg PO BID-W/MEALS #30 tab Continue Ranitidine HCl [Zantac] 150 mg PO BID Vitamin E(Unknown Dose) 1 cap PO DAILY Vitamin B Complex 1 cap PO DAILY Multivitamins, Thera [Multivitamin (formulary)] 1 tab PO DAILY Fish Oil(Unknown Dose) 1 cap PO DAILY Discharge Medication List Ranitidine HCl [Zantac] 150 mg PO BID 02/02/18 [History] Fish Oil(Unknown Dose) 1 cap PO DAILY 01/23/19 [History] Multivitamins, Thera [Multivitamin (formulary)] 1 tab PO DAILY 01/23/19 [History] Vitamin B Complex 1 cap PO DAILY 01/23/19 [History] Vitamin E(Unknown Dose) 1 cap PO DAILY 01/23/19 [History] Escitalopram [Lexapro] 20 mg PO DAILY #30 tab 01/31/19 [Rx] Folic Acid 1 mg PO DAILY@1200 #30 tab 01/31/19 [Rx] QUEtiapine [SEROquel] 50 mg PO DAILY #30 tab 01/31/19 [Rx] QUEtiapine [SEROquel] 150 mg PO HS #90 tab 01/31/19 [Rx] Thiamine [Vitamin B-1] 100 mg PO BID-W/MEALS #30 tab 01/31/19 [Rx] levETIRAcetam [Keppra] 1,000 mg PO Q12HR #120 tab 01/31/19 [Rx] Follow up Appointment(s)/Referral(s): Ayesha Murphy MD [REFERRING] - 1-2 Days Julio Torres MD [Medical Doctor] - 2 Weeks Neel Sosa DO [STAFF PHYSICIAN] - 1 Week Patient Instructions/Handouts: Benzodiazepine Abuse (ED), Nonepileptic Seizures (DC), Alcohol Withdrawal (ED) Activity/Diet/Wound Care/Special Instructions: activity is limited till you see your doctor regular diet we recommended no driving for 6 months and till be cleared by your doctor as per [place] driving law follow up with your psychiatrist as outpatient in 2-3 weeks Discharge Disposition: HOME SELF-CARE
[2019-01-31] MEDS ORDERED: levETIRAcetam 500 MG TAB PO SCH (21:00)
== END 2019-01-31 15:53 | disposition home or self-care (01) | DRG 880 ==
LOC: 2SICU 15:44
PROVIDERS: ADMIT Hospitalist; ATTEND Hospitalist
DX: F44.5 Conversion disorder with seizures or convulsions (principal); F10.231 Alcohol dependence with withdrawal delirium; B19.20 Unspecified viral hepatitis C without hepatic coma; F13.10 Sedative, hypnotic or anxiolytic abuse, uncomplicated; F17.210 Nicotine dependence, cigarettes, uncomplicated; F32.9 Major depressive disorder, single episode, unspecified; F43.10 Post-traumatic stress disorder, unspecified; F60.9 Personality disorder, unspecified; Z65.3 Problems related to other legal circumstances; Z87.820 Personal history of traumatic brain injury; Z81.8 Family history of other mental and behavioral disorders; G47.00 Insomnia, unspecified; S51.819D Laceration without foreign body of unspecified forearm, subsequent encounter; W31.82XD Contact with other commercial machinery, subsequent encounter; Z79.899 Other long term (current) drug therapy; Z91.030 Bee allergy status
CPT/HCPCS: 71045; 80048; 81003; 82550; 85025; 85027; 95816

== ENCOUNTER 2020-02-21 18:08 | Observation (INO) | payer MEDICAID, OTHER ==
--- NOTE | 2020-02-21 18:35 | ED ---
Alcohol HPI - General Stated Complaint: ETOH Time Seen by Provider: 02/21/20 18:12 Source: patient, EMS, RN notes reviewed, old records reviewed Mode of arrival: EMS Limitations: no limitations - History of Present Illness Initial Comments: this is a 29-year-old male with a history depression and chronic hep C who is brought in by EMS because of alcohol intoxication. Apparently patient was unable walk or stand up. He does admit to drinking at least a couple points of whiskey tonight. No suicidal thoughts or ideation at this time. MD Complaint: alcohol intoxication - Related Data Home Medications Medication Instructions Recorded Confirmed Buprenorphine HCl/Naloxone HCl 1 film SL DAILY 02/21/20 02/21/20 [Suboxone 2 mg-0.5 mg Sl Film] Buprenorphine HCl/Naloxone HCl 1 film SL DAILY 02/21/20 02/21/20 [Suboxone 4 mg-1 mg Sl Film] Gabapentin [Neurontin] 100 mg PO TID 02/21/20 02/21/20 Omeprazole 40 mg PO DAILY 02/21/20 02/21/20 Ondansetron HCl [Zofran] 4 mg PO TID PRN 02/21/20 02/21/20 Allergies Allergy/AdvReac Type Severity Reaction Status Date / Time bee venom protein (honey bee) Allergy Anaphylaxis Verified 02/21/20 19:25 Review of Systems ROS Statement: Those systems with pertinent positive or pertinent negative responses have been documented in the HPI. ROS Other: All systems not noted in ROS Statement are negative. Past Medical History Past Medical History: Seizure Disorder Additional Past Medical History / Comment(s): Hepatitis C, alcoholism History of Any Multi-Drug Resistant Organisms: None Reported Past Surgical History: No Surgical Hx Reported Past Anesthesia/Blood Transfusion Reactions: No Reported Reaction Past Psychological History: Anxiety, Depression, PTSD Smoking Status: Former smoker Past Alcohol Use History: Abuse, Daily Past Drug Use History: None Reported - Past Family History Father Additional Family Medical History / Comment(s): Father shot himself when he was around 41 years of age. Mother Additional Family Medical History / Comment(s): Mother was shot and killed by patient's father when she was approximately 40 years of age. Patient has one sister that is healthy. He does not have any children. General Exam - General Exam Comments Initial Comments: this is a well-developed sec appearing male who is awake and alert though very lethargic with the smell of alcohol conjoiners on his breath Limitations: no limitations General appearance: alert, in no apparent distress, appears intoxicated, le thargic Head exam: Present: atraumatic, normocephalic, normal inspection Eye exam: Present: normal appearance, PERRL, EOMI. Absent: scleral icterus, conjunctival injection, periorbital swelling ENT exam: Present: normal exam, mucous membranes moist Neck exam: Present: normal inspection, full ROM, other (no stridor JVD or bruits). Absent: tenderness, meningismus, lymphadenopathy Respiratory exam: Present: normal lung sounds bilaterally. Absent: respiratory distress, wheezes, rales, rhonchi, stridor Cardiovascular Exam: Present: regular rate, normal rhythm, normal heart sounds. Absent: systolic murmur, diastolic murmur, rubs, gallop, clicks GI/Abdominal exam: Present: soft, normal bowel sounds. Absent: distended, tenderness, guarding, rebound, rigid Extremities exam: Present: normal inspection, full ROM, normal capillary refill. Absent: tenderness, pedal edema, joint swelling, calf tenderness Back exam: Present: normal inspection Neurological exam: Present: alert, oriented X3, CN II-XII intact Psychiatric exam: Present: normal affect, normal mood Skin exam: Present: warm, dry, intact, normal color. Absent: rash Course Vital Signs 02/21/20 02/21/20 18:15 20:01 Temperature 98.1 F Pulse Rate 78 76 Respiratory 18 16 Rate Blood Pressure 127/90 109/63 O2 Sat by Pulse 98 99 Oximetry - Reevaluation(s) Reevaluation #1: 02/21/20 18:58 further information. Patient apparently is been demonstrating bizarre behavior threatening behavior. He is been petitioned by his significant other. Medical Decision Making - Medical Decision Making Patient does them straight evidence of acute alcohol intoxication as well as dehydration and mild rhabdomyolysis. I did discuss the case with Dr. Espinosa. Patient will be admitted for IV hydration alcohol withdrawal protocol and psychiatric evaluation when sober ride he is reached. - Lab Data Result diagrams: 02/21/20 18:43 02/21/20 18:43 Lab Results 02/21/20 02/21/20 02/21/20 Range/Units 18:43 18:43 18:43 WBC 6.5 (3.8-10.6) k/uL RBC 4.88 (4.30-5.90) m/uL Hgb 14.7 (13.0-17.5) gm/dL Hct 45.4 (39.0-53.0) % MCV 93.0 (80.0-100.0) fL MCH 30.2 (25.0-35.0) pg MCHC 32.4 (31.0-37.0) g/dL RDW 12.4 (11.5-15.5) % Plt Count 357 (150-450) k/uL MPV 6.2 Neutrophils % 73 % Lymphocytes % 22 % Monocytes % 4 % Eosinophils % 0 % Basophils % 0 % Neutrophils # 4.7 (1.3-7.7) k/uL Lymphocytes # 1.4 (1.0-4.8) k/uL Monocytes # 0.2 (0-1.0) k/uL Eosinophils # 0.0 (0-0.7) k/uL Basophils # 0.0 (0-0.2) k/uL Sodium 148 H (137-145) mmol/L Potassium 4.3 (3.5-5.1) mmol/L Chloride 109 H (98-107) mmol/L Carbon Dioxide 25 (22-30) mmol/L Anion Gap 14 mmol/L BUN 8 L (9-20) mg/dL Creatinine 0.76 (0.66-1.25) mg/dL Est GFR (CKD-EPI)AfAm >90 (>60 ml/min/1.73 sqM) Est GFR (CKD-EPI)NonAf >90 (>60 ml/min/1.73 sqM) Glucose 111 H (74-99) mg/dL Calcium 9.2 (8.4-10.2) mg/dL Total Bilirubin 0.4 (0.2-1.3) mg/dL AST 154 H (17-59) U/L ALT 209 H (4-49) U/L Alkaline Phosphatase 98 (38-126) U/L Creatine Kinase 449 H (55-170) U/L Total Protein 8.2 (6.3-8.2) g/dL Albumin 4.7 (3.5-5.0) g/dL Urine Opiates Screen Not Detected (NotDetected) Ur Oxycodone Screen Not Detected (NotDetected) Urine Methadone Screen Not Detected (NotDetected) Ur Propoxyphene Screen Not Detected (NotDetected) Ur Barbiturates Screen Not Detected (NotDetected) U Tricyclic Antidepress Not Detected (NotDetected) Ur Phencyclidine Scrn Not Detected (NotDetected) Ur Amphetamines Screen Not Detected (NotDetected) U Methamphetamines Scrn Not Detected (NotDetected) U Benzodiazepines Scrn Not Detected (NotDetected) Urine Cocaine Screen Not Detected (NotDetected) U Marijuana (THC) Screen Not Detected (NotDetected) Serum Alcohol 451 H* mg/dL Disposition Clinical Impression: Acute alcohol intoxication, Rhabdomyolysis, Dehydration, Depression Disposition: ADMITTED IP TO THIS [facility] Condition: Fair Referrals: Lux Espinosa MD [Primary Care Provider] - 1-2 days
[2020-02-21 19:45] LABS: Basophils % (A) 0 %; Eosinophils % (A) 0 %; HCT 45.4 % (39.0-53.0); HGB 14.7 gm/dL (13.0-17.5); Lymphocytes # (A) 1.4 k/uL (1.0-4.8); Lymphocytes % (A) 22 %; MCH 30.2 pg (25.0-35.0); MCHC 32.4 g/dL (31.0-37.0); Mean Platelet Volume 6.2; Monocytes # (A) 0.2 k/uL (0-1.0); Monocytes % (A) 4 %; Neutrophils # (A) 4.7 k/uL (1.3-7.7); Neutrophils % (A) 73 %; Platelet Count 357 k/uL (150-450); RBC 4.88 m/uL (4.30-5.90); RDW 12.4 % (11.5-15.5); WBC 6.5 k/uL (3.8-10.6)
[2020-02-21 19:54] LABS: ALT 209 U/L (4-49); AST 154 U/L (17-59); African American GFR (CKD) >90 (>60 ml/min/1.73 sqM); Albumin 4.7 g/dL (3.5-5.0); Alkaline Phosphatase 98 U/L (38-126); Anion Gap 14 mmol/L; Blood Urea Nitrogen 8 mg/dL (9-20); Calcium 9.2 mg/dL (8.4-10.2); Carbon Dioxide 25 mmol/L (22-30); Chloride 109 mmol/L (98-107); Creatine Kinase 449 U/L (55-170); Glucose 111 mg/dL (74-99); Non-African American GFR(CKD) >90 (>60 ml/min/1.73 sqM); Potassium 4.3 mmol/L (3.5-5.1); Sodium 148 mmol/L (137-145); Total Bilirubin 0.4 mg/dL (0.2-1.3); Total Protein 8.2 g/dL (6.3-8.2)
[2020-02-21 19:57] LABS: Amphetamine Screen,Urine Not Detected (NotDetected); Barbiturate Screen,Urine Not Detected (NotDetected); Benzodiazepines Screen,Urine Not Detected (NotDetected); Cocaine Screen,Urine Not Detected (NotDetected); Methadone Screen, Urine Not Detected (NotDetected); Opiate Screen,Urine Not Detected (NotDetected); Oxycodone Screen, Urine Not Detected (NotDetected); Phencyclidine Screen,Urine Not Detected (NotDetected); Tricyclic Antidepressant,Urine Not Detected (NotDetected); Urn Cannabinoid Scrn Not Detected (NotDetected)
[2020-02-21 20:07] LABS: Alcohol 451 mg/dL
[2020-02-21] MEDS ORDERED: NALOXONE 0.4 MG/ML 1 ML VIAL IV PRN (20:32)
[2020-02-21] MEDS ORDERED: THIAMINE 100 MG/ML 2 ML VIAL IM STA (20:35)
[2020-02-21] MEDS ORDERED: SODIUM CHLORIDE 0.9% 1,000 ML with MVI, ADULT NO.4 WITH VIT K 10 ML, THIAMINE 100 MG, F... IV ONE ×4 (20:45)
[2020-02-21] MEDS: THIAMINE 100 MG TAB PO SCH (20:57)
[2020-02-21] MEDS: SODIUM CHLORIDE 0.9% 1,000 ML IV SCH (21:09)
[2020-02-21] MEDS ORDERED: ONDANSETRON 4 MG/2 ML VIAL IVP PRN (22:40)
[2020-02-22] MEDS: THIAMINE 100 MG TAB PO SCH ×2 (06:46→19:34)
[2020-02-22] MEDS: LORazepam 2 MG/ML INJ IV PRN ×10 (06:46→22:33)
[2020-02-22] MEDS ORDERED: METHADONE 5 MG TAB PO ONE (09:37)
[2020-02-22] MEDS: SODIUM CHLORIDE 0.9% 1,000 ML IV SCH ×4 (11:12→20:28)
[2020-02-22] MEDS: PANTOPRAZOLE 40 MG TABLET PO SCH (11:26)
--- NOTE | 2020-02-22 14:19 | P.CN ---
Psychiatric Consult - . Consult date: 02/22/20 Consult:: 02/22/20 13:14 IDENTIFYING DATA: Patient is a 29-year-old male history of depression and chronic alcohol use who is currently , has 2 kids and currently lives with his fiance and works at a [employer]. HPI: Patient presented to the hospital initially for alcohol and depression. Patient has a history of depression and hepatitis C. He was brought in by EMS for intoxication. Apparently patient was admitted to thinking heavily whiskey for the past week or so and was denying suicidal thoughts at that time. Blood alcohol level was 451 and AST ALT was elevated and CK was elevated. Patient had a negative UDS. Patient was admitted medically for alcohol withdrawal. Psychiatry is consulted for depression and alcohol intoxication. Patient was seen at the bedside and explained that he has been drinking heavily for the past week or so as he found out that his suboxone from him. He states that when he found out he fired his friend however did not call the police. He was fairly guarded when asked to describe more about the details. He states that he has been on Suboxone which is helping him stop drinking. He claims that she started drinking afterwards as he was not allowed to get his Suboxone until February 23. He states that he has been getting his Suboxone from his neurologist. He claims that "my friend knew where I kept it. He states that he took methadone today and states that that is been helping him with his withdrawal symptoms. Currently states that he is dealing with some anxiety related to his alcohol withdrawal however his mood is "good" and denies any depression today. He state s that he isn't sleeping well. He denies any suicidal or homicidal ideations intent or plan and denies any auditory or visual hallucinations. PAST PSYCHIATRIC HISTORY: Patient was previously admitted to the mental health unit depression and alcohol use over 1 yr ago. Patient is previously been on Paxil, Zoloft and Seroquel, Lexapro and Seroquel. He admits to depression and anxiety. Denies any previous suicide attempts. He does not have an outpatient psychiatrist. PMH: Hep C positive, chronic lower back pain ALLERGIES: as per EMR CHEMICAL DEPENDENCY HISTORY: as per HPI FAMILY PSYCHIATRIC/SUBSTANCE USE HISTORY: Patient's father murdered his and committed suicide. SOCIAL HISTORY: Patient was born in [place], and was raised mainly by his uncle after his parents were killed. Patient is currently with his girlfriend has 2 kids. He lives with his fiance in a house. 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 He states that he completed high school. MENTAL STATUS EXAM: General Appearance: Patient appears to be stated age is alert, attempts to cooperate. Guarded at times. Patient has proved hygiene and grooming. Long hair. Behavior: Patient is calmly seated without any agitated behavior. I did at times. Speech: Patient's speech is fluent and nonpressured. Mood/Affect: Patient reports their mood is ok, mild anxiety, affect is congruent and constricted. Suicidality/Homicidality: Patient denies having any suicidal or homicidal ideation intent or plan. Perceptions: Patient denies any auditory or visual hallucinations. Though content/process: There is no evidence of any delusional thought content and thought process is linear and goal-directed. Focused on his medications. Memory and concentration: AOX3, grossly intact for the purposes of this session. Can spell "WORLD" backwards Judgment and insight: Superficial IMPRESSIONS: History of Major depressive disorder Alcohol use disorder, severe, currently withdrawal Opioid dependence Nicotine dependence PLAN: -At this time patient DOES NOT meet criteria for inpatient psychiatric admission. -Would recommend the following medication changes/additions: Continue on with CIWA protocol with when necessary Ativan for alcohol withdrawal. Continue monitoring for seizures. Patient will be eligible for a refill of Suboxone on February 23. Okay to give one more dose of methadone tomorrow if patient stays in the hospital however he should not be allowed to take any methadone home for dosing. -Thiamine and multivitamin for etoh use. -rodent control worker to provide patient with outpatient mental health/psychiatry resources for appropriate follow up upon discharge -Data Input Clerk spoke with patient about substance abuse and the harmful effects on medical and mental health, patient verbally understood and agreed. -rodent control worker to provide patient substance use treatment resources including AA/NA meetings in the community. Offered patient rehab however he declined at this time. -Psychiatry will sign off at this time -Please contact with any questions. 02/22/20 14:14 02/22/20 14:19
[2020-02-22] MEDS: NON FORMULARY DRUG (Buprenorphine Hcl/Naloxone Hcl [Suboxone 4 Mg-1 Mg Sl Film] 1 EACH Fil SUBLINGUAL SCH (14:51)
[2020-02-22] MEDS: MULTIVITAMINS, THERA 1 EACH TAB PO SCH (19:36)
[2020-02-23 04:55] VITALS: BP 111/66; PULSE 52; RESP 16; TEMP 97.5
[2020-02-23] MEDS: LORazepam 2 MG/ML INJ IV PRN ×2 (05:32→07:29)
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
[2020-02-23] MEDS: THIAMINE 100 MG TAB PO SCH (07:29)
[2020-02-23] MEDS: MULTIVITAMINS, THERA 1 EACH TAB PO SCH (07:29)
[2020-02-23] MEDS: NON FORMULARY DRUG (Buprenorphine Hcl/Naloxone Hcl [Suboxone 4 Mg-1 Mg Sl Film] 1 EACH Fil SUBLINGUAL SCH (07:29)
[2020-02-23] MEDS: PANTOPRAZOLE 40 MG TABLET PO SCH (07:30)
[2020-02-23] MEDS ORDERED: METHADONE 10 MG TAB PO ONE (09:00)
--- NOTE | 2020-02-23 10:01 | P.DS ---
Providers Date of admission: 02/21/20 20:36 Attending physician: Lux Espinosa MD Consults: 02/21/20 20:33 Consult Physician Routine Consulting Provider: Julio Torres Consult Reason/Comments: depression, alcohol intoxication Do you want consulting provider notified?: Yes, Notify in am Primary care physician: Lux Espinosa MD Hospital Course: 29-year-old pleasant male with history of opiate abuse is admitted for all call abuse monitored for alcohol withdrawal didn't require much of Ativan. Patient chart today. Patient can get Suboxone from tomorrow. Patient says that he started having withdrawals from opiates patient will be given a dose of methadone here and will be discharged today to follow up in the methadone clinic psychiatry evaluated the patient patient declined any drug rehabitation program. Patient is reasonable. And willing to quit all the drugs and alcohol. Patient is requesting for Antabuse. Patient is still just getting over the withdrawal using Antabuse at this time can lead to seizures because of which the I'll leave that decision to primary care physician. PHYSICAL EXAMINATION: GENERAL: The patient is alert and oriented x3, not in any acute distress. Well developed, well nourished. HEENT: Pupils are round and equally reacting to light. EOMI. No scleral icterus. No conjunctival pallor. Normocephalic, atraumatic. No pharyngeal erythema. No thyromegaly. CARDIOVASCULAR: S1 and S2 present. No murmurs, rubs, or gallops. PULMONARY: Chest is clear to auscultation, no wheezing or crackles. ABDOMEN: Soft, nontender, nondistended, normoactive bowel sounds. No palpable organomegaly. MUSCULOSKELETAL: No joint swelling or deformity. EXTREMITIES: No cyanosis, clubbing, or pedal edema. NEUROLOGICAL: Gross neurological examination did not reveal any focal deficits. SKIN: No rashes. -Alcohol abuse: Patient is not having any withdrawals at this time -History of hepatitis C Dependence on Suboxone -Nicotine dependence counseling is provided for drug abuse. Patient Condition at Discharge: Fair Plan - Discharge Summary Discharge Rx Participant: Yes New Discharge Prescriptions: New Multivitamins, Thera [Multivitamin (formulary)] 1 each PO DAILY #30 tab Thiamine [Vitamin B-1] 100 mg PO BID-W/MEALS #30 tab Continue Ondansetron HCl [Zofran] 4 mg PO TID PRN PRN Reason: Nausea And Vomiting Gabapentin [Neurontin] 100 mg PO TID Buprenorphine HCl/Naloxone HCl [Suboxone 4 mg-1 mg Sl Film] 1 film SL DAILY Buprenorphine HCl/Naloxone HCl [Suboxone 2 mg-0.5 mg Sl Film] 1 film SL DAILY Omeprazole 40 mg PO DAILY Discharge Medication List Buprenorphine HCl/Naloxone HCl [Suboxone 2 mg-0.5 mg Sl Film] 1 film SL DAILY 02/21/20 [History] Buprenorphine HCl/Naloxone HCl [Suboxone 4 mg-1 mg Sl Film] 1 film SL DAILY 02/21/20 [History] Gabapentin [Neurontin] 100 mg PO TID 02/21/20 [History] Omeprazole 40 mg PO DAILY 02/21/20 [History] Ondansetron HCl [Zofran] 4 mg PO TID PRN 02/21/20 [History] Multivitamins, Thera [Multivitamin (formulary)] 1 each PO DAILY #30 tab 02/23/20 [Rx] Thiamine [Vitamin B-1] 100 mg PO BID-W/MEALS #30 tab 02/23/20 [Rx] Follow up Appointment(s)/Referral(s): Lux Espinosa MD [Primary Care Provider] - 3 Days Discharge Disposition: HOME SELF-CARE
== END 2020-02-23 11:27 | disposition home or self-care (01) ==
LOC: EC 18:08 → 6NMEDSUR 20:36
PROVIDERS: ADMIT Family Medicine; ATTEND Family Medicine
DX: F10.229 Alcohol dependence with intoxication, unspecified (principal); F11.23 Opioid dependence with withdrawal; E86.0 Dehydration; M62.82 Rhabdomyolysis; F32.9 Major depressive disorder, single episode, unspecified; K70.10 Alcoholic hepatitis without ascites; F41.9 Anxiety disorder, unspecified; F43.10 Post-traumatic stress disorder, unspecified; G40.909 Epilepsy, unspecified, not intractable, without status epilepticus; Z87.891 Personal history of nicotine dependence; Z79.891 Long term (current) use of opiate analgesic; Z79.899 Other long term (current) drug therapy; Z91.030 Bee allergy status
CPT/HCPCS: 96376 ×3; 96361 ×2; 82075; 96365; 96366 ×2; 96372; 96375; 99285; 36415; 80053; 82550; 85025; 80306; G0378 ×3; G0480; J2060 ×2; J3411; S0109 ×2; 80320

== ENCOUNTER → 2022-10-22 | Outpatient (CLI) | payer OTHER ==
--- NOTE | 2022-10-22 11:59 | US ---
EXAMINATION TYPE: US liver DATE OF EXAM: 10/22/2022 COMPARISON: US dated 04/18/2017 CLINICAL INDICATION: Male, 32 years old with history of B18.2 CHRONIC HEP C; TECHNIQUE: Multiple sonographic images of the right upper quadrant are obtained. FINDINGS: EXAM MEASUREMENTS: Liver Length: 14.6 cm Gallbladder Wall: 0.2 cm CBD: 0.2 cm Right Kidney: 10.2 x 3.8 x 4.8 cm PLASTER LATHER NOTES: Pancreas: Obscured by bowel gas Liver: wnl . No masses are identified. Gallbladder: No stones seen Evidence for sonographic Rosa's sign: No CBD: wnl Right Kidney: No hydronephrosis or masses seen IMPRESSION: 1. No suspicious right upper quadrant ultrasound changes.
== END | disposition home or self-care (01) ==
LOC: RADUSWWP 10:23
PROVIDERS: ATTEND Internal Medicine Gastroenterology
DX: B18.2 Chronic viral hepatitis C (principal)
CPT/HCPCS: 76705

== ENCOUNTER 2024-04-10 16:51 | Emergency (ER) | payer OTHER ==
[2024-04-10 17:35] VITALS: BP 143/88; PULSE 67; RESP 18; TEMP 98.1
--- NOTE | 2024-04-10 18:45 | ED ---
General Adult HPI - General Chief complaint: Skin/Abscess/Foreign Body Stated complaint: L Hand Injury Time Seen by Provider: 04/10/24 17:59 Source: patient, RN notes reviewed Mode of arrival: ambulatory Limitations: no limitations - History of Present Illness Initial comments: Patient is a 33-year-old male present to the emergency department with concern for infection to his left hand. Patient states yesterday at work he was using a wooden tool and struck himself in the left hand. Patient denies any possibility of foreign body. Patient states there is discomfort and swelling and redness that has increased since yesterday. Unclear last tetanus immunization. No fever. No other area of involvement - Related Data Home Medications Medication Instructions Recorded Confirmed Buprenorphine HCl/Naloxone HCl 1 film SL DAILY 02/21/20 02/21/20 [Suboxone 2 mg-0.5 mg Sl Film] Buprenorphine HCl/Naloxone HCl 1 film SL DAILY 02/21/20 02/21/20 [Suboxone 4 mg-1 mg Sl Film] Gabapentin [Neurontin] 100 mg PO TID 02/21/20 02/21/20 Omeprazole 40 mg PO DAILY 02/21/20 02/21/20 ondansetron HCL [Zofran] 4 mg PO TID PRN 02/21/20 02/21/20 Previous Rx's Medication Instructions Recorded Multivitamins, Thera [Multivitamin 1 each PO DAILY #30 tab 02/23/20 (formulary)] Thiamine [Vitamin B-1] 100 mg PO BID-W/MEALS #30 tab 02/23/20 Clindamycin [Cleocin] 2 tab PO Q6H #80 cap 04/10/24 Allergies Allergy/AdvReac Type Severity Reaction Status Date / Time bee venom protein (honey bee) Allergy Anaphylaxis Verified 04/10/24 17:30 Review of Systems ROS Statement: Those systems with pertinent positive or pertinent negative responses have been documented in the HPI. ROS Other: All systems not noted in ROS Statement are negative. Constitutional: Denies: fever Eyes: Denies: eye pain ENT: Denies: ear pain Cardiovascular: Denies: chest pain Skin: Reports: as per HPI, rash Past Medical History Past Medical History: Seizure Disorder Additional Past Medical History / Comment(s): Hepatitis C, alcoholism, seizures from withdrawals from alcohol. On suboxone and adderall History of Any Multi-Drug Resistant Organisms: None Reported Past Surgical History: No Surgical Hx Reported Past Anesthesia/Blood Transfusion Reactions: No Reported Reaction Past Psychological History: Anxiety, Depression, PTSD Smoking Status: Current every day smoker Past Alcohol Use History: None Reported, Abuse, Daily Past Drug Use History: None Reported - Past Family History Father Additional Family Medical History / Comment(s): Father shot himself when he was around 41 years of age. Mother Additional Family Medical History / Comment(s): Mother was shot and killed by patient's father when she was approximately 40 years of age. Patient has one sister that is healthy. He does not have any children. General Exam Limitations: no limitations General appearance: alert, in no apparent distress Head exam: Present: atraumatic Eye exam: Present: normal appearance Neck exam: Present: normal inspection Respiratory exam: Present: normal lung sounds bilaterally Cardiovascular Exam: Present: regular rate, normal rhythm Expanded Peripheral pulses: 2+: Radial (L) GI/Abdominal exam: Present: soft. Absent: tenderness Extremities exam: Present: other (Left hand with abrasion less than 1 cm just proximal to the MCP of the index finger. There is localized swelling and erythema up to approximately snf to the wrist. Distally there is full range of motion without pain or significant swelling of the digits. No paresthesias. No weakness. ) Neurological exam: Present: alert. Absent: motor sensory deficit Psychiatric exam: Present: normal affect, normal mood Skin exam: Present: erythema Course Vital Signs 04/10/24 17:31 Temperature 98.1 F Pulse Rate 67 Respiratory 18 Rate Blood Pressure 143/88 O2 Sat by Pulse 99 Oximetry Medical Decision Making - Medical Decision Making Was pt. sent in by a medical professional or institution (, PA, SET UP / OPERATOR, urgent care, hospital, or longterm...) When possible be specific @ -No Did you speak to anyone other than the patient for history (EMS, parent, family, police, friend...)? What history was obtained from this source @ -No Did you review nursing and triage notes (agree or disagree)? Why? @ -I reviewed and agree with nursing and triage notes Were old charts reviewed (outside hosp., previous admission, EMS record, old EKG, old radiological studies, urgent care reports/EKG's, longterm records)? Report findings @ -No old charts were reviewed Differential Diagnosis (chest pain, altered mental status, abdominal pain women, abdominal pain men, vaginal bleeding, weakness, fever, dyspnea, syncope, headache, dizziness, GI bleed, back pain, seizure, CVA, palpatations, mental health, musculoskeletal)? @ -Differential Fever: Pneumonia, viral URI, endocarditis, myocarditis, pericarditis, otitis, sinusitis, peritonsillar Abscess, retropharyngeal Abscess, epiglottitis, peritonitis, appendicitis, Harmony cystitis, diverticulitis, hepatitis, colitis, UTI, PID, TOA, pyelonephritis, prostatitis, epididymitis, meningitis, encephalitis, pulmonary embolism, CVA, thyroid storm, pancreatitis, adrenal crisis, cavernous sinus thrombosis, this is not meant to be an all-inclusive list. EKG interpreted by me (3pts min.). @ -As above X-rays interpreted by me (1pt min.). @ -None done CT interpreted by me (1pt min.). @ -None done U/S interpreted by me (1pt. min.). @ -None done What testing was considered but not performed or refused? (CT, X-rays, U/S, labs)? Why? @ -Considered imaging however patient denies any possibility of foreign body What meds were considered but not given or refused? Why? @ -None Did you discuss the management of the patient with other professionals (professionals i.e. , PA, SET UP / OPERATOR, lab, RT, psych nurse, social media content specialist, assurance senior, teacher, business services officer, lead case manager)? Give summary @ -No Was smoking cessation discussed for >3mins.? @ -No Was critical care preformed (if so, how long)? @ -No Were there social determinants of health that impacted care today? How? (Homelessness, low income, unemployed, alcoholism, drug addiction, transportation, low edu. Level, literacy, decrease access to med. care, residential, rehab)? @ -No Was there de-escalation of care discussed even if they declined (Discuss DNR or withdrawal of care, Hospice)? DNR status @ -No What co-morbidities impacted this encounter? (DM, HTN, Smoking, COPD, CAD, Cancer, CVA, ARF, Chemo, Hep., AIDS, mental health diagnosis, sleep apnea, morbid obesity)? @ -None Was patient admitted / discharged? Hospital course, mention meds given and route, prescriptions, significant lab abnormalities, going to OR and other pertinent info. @ -Patient presents with cellulitis left hand following injury yesterday. Patient will be discharged with clindamycin. Starter pack provided for Bactrim if he is unable to get it filled tomorrow secondary to the holiday. Patient is updated on need for close follow-up as well as concerns for potential worsening symptoms. Patient does not have any [place] signs. Undiagnosed new problem with uncertain prognosis? @ -No Drug Therapy requiring intensive monitoring for toxicity (Heparin, Nitro, Insulin, Cardizem)? @ -No Were any procedures done? @ -No Diagnosis/symptom? @ -Left hand cellulitis Acute, or Chronic, or Acute on Chronic? @ -Acute Uncomplicated (without systemic symptoms) or Complicated (systemic symptoms)? @ -Default Side effects of treatment? @ -No Exacerbation, Progression, or Severe Exacerbation? @ -No Poses a threat to life or bodily function? How? (Chest pain, [place], [place], pneumonia, PE, COPD, DKA, ARF, appy, cholecystitis, CVA, Diverticulitis, Homicidal, Suicidal, threat to staff... and all critical care pts) @ -No Disposition Clinical Impression: Cellulitis of left hand Disposition: HOME SELF-CARE Condition: Stable Instructions (If sedation given, give patient instructions): Cellulitis (ED) Additional Instructions: Prescription sent to pharmacy. Please do follow-up with primary care physician . Return for fever, increased pain, swelling, difficulty moving the hand or fingers, purulent drainage, redness, loss of sensation, finger swelling, worsening symptoms or any other concerns. Prescriptions: Clindamycin [Cleocin] 2 tab PO Q6H #80 cap Is patient prescribed a controlled substance at d/c from ED?: No Referrals: Nataly Petersen DO [Primary Care Provider] - 1-2 days Time of Disposition: 18:44
[2024-04-10] MEDS: DIPH,PERTUS(ACELL)TETVAC-LF 0.5 ML VIAL IM ONE (19:21)
[2024-04-10] MEDS: CLINDAMYCIN 150 MG CAP PO STA (19:22)
[2024-04-10] MEDS: SULFAMETH-TMP DS STARTER PACK 2 TAB BTL PO STA (19:22)
== END 2024-04-10 19:29 | disposition home or self-care (01) ==
LOC: EC 16:51
DX: L03.114 Cellulitis of left upper limb (principal); F17.200 Nicotine dependence, unspecified, uncomplicated; Z91.030 Bee allergy status; Z23 Encounter for immunization; W22.8XXA Striking against or struck by other objects, initial encounter; Y99.0 Civilian activity done for income or pay
CPT/HCPCS: 90471; 90715; 99283